=== PATIENT | male | born 1940 | race Caucasian/White ===

== ENCOUNTER 2024-12-16 16:53 | Inpatient (IN) | payer MEDICARE, BC, SELFPAY ==
[2024-12-16] VITALS (17 sets, daily range): BP systolic 84–105; BP diastolic 35–65; PULSE 84–118; RESP 15–282; TEMP 36.6–37.5; O2SAT 78–100; BMI 28.5; BMI 28.0
--- NOTE | 2024-12-16 17:34 | ED.VIS.GI ---
HPI HPI - GI History of Present Illness Chief Complaint: Nausea/Vomiting/Diarrhea Informant: patient Nausea/Vomiting/Emesis GI Symptom: Positive for Nausea and Vomiting Onset: Days Severity: Mild Diarrhea/Melena/Hematochezia GI Symptom: Positive for Diarrhea Onset: Days Stool Quality: Positive for Loose Severity: Mild Associated Symptoms Associated Symptoms: Negative for Dysuria, Frequency, Hematuria or Urgency Narrative Narrative: 81-year-old male reportedly past medical history diabetes. But the patient is a very limited informant. He was brought in by squad we think from his home. Presents complaining of nausea, vomiting and diarrhea last several days. Denies any fever or abdominal pain. Denies any dysuria. Prior similar symptoms: No Recent Illness/Hospitalization: No PFSH PFSH Home Medications ?Medication ?Instructions ?Recorded ?Last Taken ?Type finasteride 5 mg tablet 5 mg PO DAILY 12/16/24 Unknown History glipizide 5 mg tablet 5 mg PO DAILY 12/16/24 Unknown History levothyroxine 25 mcg tablet 25 mcg PO DAILY 12/16/24 Unknown History (Euthyrox) losartan 50 mg tablet (Cozaar) 50 mg PO DAILY 12/16/24 Unknown History metoprolol tartrate 50 mg tablet 50 mg PO DAILY 12/16/24 Unknown History (Lopressor) simvastatin 40 mg tablet 40 mg PO DAILY 12/16/24 Unknown History tamsulosin 0.4 mg capsule (Flomax) 0.4 mg PO DAILY 12/16/24 Unknown History warfarin 1 mg tablet (Jantoven) 1 mg PO .unknown 12/16/24 Unknown History Allergy/AdvReac Type Severity Reaction Status Date / Time No Known Allergies Allergy Verified 12/16/24 16:59 Social History Smoking Status: Never smoker ROS ROS ED ROS Narrative Nausea, vomiting and diarrhea. Constitutional Constitutional ED: Denies chills or fever(s) ENT ENT ED: Denies ear pain Cardiovascular Cardiovascular: Denies chest pain Respiratory/Chest Respiratory/Chest: Denies dyspnea Gastrointestinal Gastrointestinal: Reports diarrhea, nausea and vomiting; Denies abdominal pain, constipation or melena Genitourinary Genitourinary ED: Denies dysuria or hematuria Musculoskeletal Musculoskeletal: Denies arthralgias Integumentary Denies abscess Neurologic Neurologic: Denies headache(s) Psychiatric Psychiatric: Denies anxiety or depression Endocrine Endocrinology: Denies polydipsia Hematologic/Lymphatic Hematologic/Lymphatic: Denies easy bleeding, easy bruising or lymphadenopathy Allergic/Immunologic Allergic/Immunologic ED: Denies mouth swelling, tongue swelling or urticaria EXAM Physical Exam Narrative Exam Narrative: 81-year-old male vital signs show temperature nine 9.5. Blood pressure of 91/65. He is awake and alert he sitting upright in bed. He is a very limited informant. There is currently no family with him. H EENT exam pupils round react light. Dry mucous memories. Neck nontender no JVD. No lymphadenopathy. Back nontender. Lungs clear to auscultation bilaterally. Heart tachycardic rate about 101 no murmur. Chest wall ribs nontender. Abdomen soft nondistended normal bowel sounds without peritoneal signs. No hernia or mass. No obstruction. Soft. Moving all 4 extremities. Both lower extremities have chronic nail changes and skin changes. Trace edema. Neurologically he is awake he is alert. He knows he is in the hospital. He does not know the date. He is a very limited informant. He has no focal motor deficits. Normal speech. Const Vital Signs: 12/16/24 16:59 12/16/24 17:06 12/16/24 17:15 Temperature 99.5 F H Temperature Source Oral Pulse Rate 101 H 106 H Respiratory Rate 282 H 19 H 22 H Blood Pressure 91/65 Blood Pressure Mean 73 Pulse Ox 99 100 100 Oxygen Delivery Method Room Air 12/16/24 17:30 12/16/24 17:45 12/16/24 18:00 Temperature Temperature Source Pulse Rate 113 H 118 H 101 H Respiratory Rate 24 H 24 H 15 Blood Pressure 90/55 L 97/56 L Blood Pressure Mean 68 70 Pulse Ox 81 78 80 Oxygen Delivery Method 12/16/24 18:15 12/16/24 18:30 12/16/24 18:45 Temperature Temperature Source Pulse Rate 107 H 112 H Respiratory Rate 22 H 21 H 23 H Blood Pressure 94/48 L Blood Pressure Mean 62 Pulse Ox Oxygen Delivery Method 12/16/24 19:00 12/16/24 19:15 12/16/24 20:25 Temperature Temperature Source Pulse Rate 111 H 106 H 94 Respiratory Rate 28 H 21 H 16 Blood Pressure 84/35 L 101/52 L 87/44 L Blood Pressure Mean 46 66 58 Pulse Ox 92 94 Oxygen Delivery Method Room Air Positive well nourished and well developed; Negative for cachectic, contractures or unkempt General Appearance ED: well developed and NAD; Negative for unkempt, cachectic, contractures or pallor Nutritional Appearance: Negative for cachectic HEENT Reports dry mucous membranes; Denies moist mucous membranes normocephalic and atraumatic Mouth ED: Yes dry mucous membranes Mouth: dry mucous membranes Eyes PERRL and EOMs intact bilaterally Neck no lymphadenopathy, supple and no JVD Resp normal respiratory effort and clear to auscultation bilaterally Cardio regular rhythm, S1 normal heart sound, S2 normal heart sound and no murmurs; Negative for regular rate Rate: tachycardic GI non-tender, non-distended and no masses Inspection: Negative for abdominal distention Auscultation: normoactive bowel sounds Palpation: soft; Negative for tender, guarding, rigid, mass, pulsatile mass or rebound tenderness present Back/Spine no CVA tenderness Extremity full ROM Extremity Narrative: Chronic skin and nail changes. General Extremety ED: Yes edema; Negative for tenderness General Extremity: edema Neuro moves all extremities Sensorium / Orientation: alert, oriented to person, orientation impaired and confused; Negative for oriented to place, oriented to time, lethargic or stuporous Motor Exam: strength 5/5 throughout Psych mental status grossly normal and thought process normal Appearance: Negative for unkempt Skin No no wounds General Skin Exam: Negative for jaundice or pallor Lesions: no lesions Rashes: no rashes MDM MDM MDM Narrative Medical decision making narrative: 81-year-old male reportedly from home with nausea vomiting diarrhea. Clinically looks dehydrated and with that has acute hypotension most likely from dehydration. Screening labs to be obtained have been given Zofran and a liter normal saline. Multiple repeat exams the most recent 9:40 PM. Patient received initial liter of saline was given a second. He has 3 good peripheral lines. Pressure currently is around 90 systolic he will be given 1/3 L. Given his leukocytosis but no specific source as of yet will be started on IV Zosyn. I have the hospitalist on page for admission. Patient is awake and alert. He wants to go home I explained to him given his labs that he may be sicker than he realizes. His son and are at bedside they are comfortable with the admission. History & Record Review Discussion w/independent historian: Patient Additional record(s) reviewed:: No prior records Lab Data Attestation: I reviewed the patient's lab results. Lab results narrative: CBC shows an elevated white count 24.2. H&H 9.3 and 20.6. Platelets 233. Chemistry showed potassium of 3.2. Gap 16. BUN and creatinine at 38 and 2.48. No old labs available for comparison. Glucose 143. Liver enzymes unremarkable other than an alk phos of 231. No old labs available for comparison. PT/INR of 18.9 and 1.5. Lactic acid is elevated 2.6. UA no nitrites. Greater than 100 white cells. 2+ bacteria. Urine culture sent. Will be treated as a UTI. Labs: Laboratory Results - last 24 hr 12/16/24 12/16/24 12/16/24 17:35 18:30 19:00 WBC 24.2 H RBC 3.18 L Hgb 9.3 L Hct 28.6 L MCV 89.9 MCH 29.2 MCHC 32.5 RDW Std Deviation 49.5 H RDW Coeff of Rolando 14.9 H Plt Count 233 MPV 8.9 Immature Gran % (Auto) 1.000 H Neut % (Auto) 95.7 H Lymph % (Auto) 1.8 L Griggs % (Auto) 1.3 Eos % (Auto) 0.0 Baso % (Auto) 0.2 Absolute Neuts (auto) 23.2 H Absolute Lymphs (auto) 0.44 L Nucleated RBC % 0 Differential Comment SCANNED Platelet Estimate ADEQUATE PT Cancelled Cancelled INR Cancelled Cancelled Sodium 139 Potassium 3.2 L Chloride 101 Carbon Dioxide 22.3 Anion Gap 16 H BUN 38 H Creatinine 2.48 H Estim Creat Clear Calc 26.41 L Est GFR (MDRD) Non-Af 25 L BUN/Creatinine Ratio 15.1 Glucose 143 H Lactic Acid Calcium 7.8 Total Bilirubin 0.52 AST 32 ALT 14 Alkaline Phosphatase 231 H Total Protein 6.1 Albumin 2.5 L Globulin 3.6 Albumin/Globulin Ratio 0.7 L Urine Color Urine Clarity Urine pH Ur Specific Sibley Urine Protein Urine Glucose (UA) Urine Ketones Urine Occult Blood Urine Nitrite Urine Bilirubin Urine Urobilinogen Ur Leukocyte Esterase Urine RBC Urine WBC Ur Squamous Epith Cells Urine Bacteria Urine Mucus 12/16/24 12/16/24 12/16/24 20:00 20:18 20:30 WBC RBC Hgb Hct MCV MCH MCHC RDW Std Deviation RDW Coeff of Rolando Plt Count MPV Immature Gran % (Auto) Neut % (Auto) Lymph % (Auto) Griggs % (Auto) Eos % (Auto) Baso % (Auto) Absolute Neuts (auto) Absolute Lymphs (auto) Nucleated RBC % Differential Comment Platelet Estimate PT 18.9 H INR 1.5 Sodium Potassium Chloride Carbon Dioxide Anion Gap BUN Creatinine Estim Creat Clear Calc Est GFR (MDRD) Non-Af BUN/Creatinine Ratio Glucose Lactic Acid 2.6 H* Calcium Total Bilirubin AST ALT Alkaline Phosphatase Total Protein Albumin Globulin Albumin/Globulin Ratio Urine Color Yellow Urine Clarity Cloudy Urine pH 6.5 Ur Specific Sibley 1.010 Urine Protein 30 H Urine Glucose (UA) Normal Urine Ketones Negative Urine Occult Blood 25 H Urine Nitrite Negative Urine Bilirubin Negative Urine Urobilinogen Normal Ur Leukocyte Esterase 500 H Urine RBC 0 SEEN Urine WBC >100 SEEN Ur Squamous Epith Cells 0-5 SEEN Urine Bacteria 2+ Urine Mucus 0 SEEN Radiography Chest X-Ray - ED: 1 View, Lungs, Mediastinum, Bony Structures, No Acute Disease, Chronic Changes and Cardiomegaly Diagnostic Testing: Clinical Impression(s) from Imaging Studies Chest X-Ray 12/16/24 17:55 IMPRESSION: Mild cardiomegaly and mild pulmonary vascular congestion. Reading Location: [facility] Chest x-ray, portable, single view shows cardiomegaly. Otherwise chronic changes no acute process. No pneumonia. No large effusion. Rhythm Strip Rhythm Strip: A-fib Rate: 95 Ectopy: None EKG Initial EKG: Attestation: I personally reviewed and interpreted this EKG as follows: Interpretation: No Acute Injury Pattern and Atrial Fibrillation Comments: Atrial fibrillation rate of 95 no acute signs of [place] or ischemia. No old EKG available for comparison. Prior EKG tracings: not available for review Critical Care Time Critical Care Time: Yes Critical care time (excluding procedures): 30-74 minutes, Including time spent:, Discussing w/Patient &/or Family/Equal Employment Opportunity Officer, Discussing w/Consultants, Arranging Admission or Transfer, Performing Direct Patient Care at Bedside and - (41 minutes) Discharge Plan Dx/Rx/DC Orders Clinical Impression: Nausea vomiting and diarrhea, Leukocytosis, Acute hypotension, Acute dehydration, Chronic kidney disease, History of diabetes mellitus, Chronic anticoagulation, History of atrial fibrillation, Acute UTI, Sepsis Disposition Disposition: Acute Care Hospital [facility]
[2024-12-16] MEDS: 0.9% Normal Saline (1000mL) 1,000 ML 999 ML IV ×3 (17:39→21:49)
[2024-12-16 17:42] LABS: Hematocrit 28.6 % (40-54); Hemoglobin 9.3 g/dL (13.0-16.5); Immature Granulocytes Count 0.250 X10^3/uL (0.0-0.0); Mean Corp Hgb Conc 32.5 g/dL (32-36); Mean Corpuscular Volume 89.9 fL (80-94); Mean Platelet Vol. 8.9 fl (6.2-12.0); NRBC Flagged by Analyzer 0 % (0-5); POSITIVE DIFFERENTIAL YES; Platelet Count 233 K/mm3 (150-450); RBC Distribution Width CV 14.9 % (11.6-14.6); RBC Distribution Width SD 49.5 fl (35.1-43.9); Red Blood Count 3.18 M/mm3 (4.6-6.2); White Blood Count 24.2 K/mm3 (4.4-11.0)
--- NOTE | 2024-12-16 17:46 | ED.RN ---
[facility] states that son Lorenzo Espitia is getting his mom/pt's ready and they will be in. the has dementia per twp. pt and live with son per twp. son's phone number [phone].
--- NOTE | 2024-12-16 17:55 | RAD_ITS ---
PROCEDURE: CHEST 1 VIEW (PORTABLE) 12/16/2024 REASON FOR EXAM: WEAKNESS TECHNIQUE: Frontal view of the chest. COMPARISON: None available. FINDINGS: Hardware: None. Heart: Heart size is mildly enlarged. Lungs: Mild pulmonary vascular congestion. No definite pneumothorax or sizable pleural effusion. Bones: The bones are unremarkable. RAD/Chest 1 View (Portable) IMPRESSION: Mild cardiomegaly and mild pulmonary vascular congestion. Reading Location: [facility]
[2024-12-16 18:17] LABS: AST(SGOT) 32 U/L (<=37); Alanine Aminotransfer ALT/SGPT 14 U/L (<=46); Albumin, Serum 2.5 g/dL (3.4-4.8); Alkaline Phosphatase 231 U/L (40-129); Anion Gap 16 (5-15); BUN 38 mg/dL (4-19); BUN/Creat Ratio 15.1 RATIO (10-20); Calcium,Total 7.8 mg/dL (7.6-11.0); Carbon Dioxide 22.3 mmol/L (21.0-32.0); Chloride 101 mmol/L (98-108); Estimated Creatinine Clearance 26.41 ml/min (50-250); Globulin 3.6 g/dL (2.2-4.2); Glucose 143 mg/dL (70-99); Potassium 3.2 mmol/L (3.3-5.1)
--- NOTE | 2024-12-16 19:29 | ED.RN ---
Laura from lab called and states blue top quant not sufficient. States will send a broommaking supervisor.
--- NOTE | 2024-12-16 20:05 | EKG12_ITS ---
Test Reason : DYSRHYTHMIA Blood Pressure : */* mmHG Vent. Rate : 95 BPM Atrial Rate : * BPM P-R Int : * ms QRS Dur : 88 ms QT Int : 374 ms P-R-T Axes : * -17 -34 degrees QTcB Int : 469 ms Atrial fibrillation Low voltage QRS Abnormal ECG Confirmed by ANA DE SOUZA, SEA ([id number]), medical transcription editor MERRILL WERNER ([id number]) on 12/18/2024 8:33:47 AM Referred By: Confirmed By: SEA PEREZ MD
--- NOTE | 2024-12-16 20:09 | PCA ---
NO OLD EKG
[2024-12-16 20:13] LABS: Differential Indicated SCAN CRITERIA MET
[2024-12-16 20:37] LABS: Prothrombin Time (Protime)PT. 18.9 SECONDS (11.7-14.9)
[2024-12-16 20:38] LABS: Mucous, Urine 0 SEEN /hpf (<or=2+); Red Blood Cells-Urine 0 SEEN /hpf (0-5)
[2024-12-16 20:50] LABS: Color, Urine Yellow (Yellow); Glucose, Dipstick Normal (Normal); Ketone-Dipstick Negative (Negative); Leukocyte Esterase-Dipstick 500 /ul (Negative); Nitrite-Dipstick Negative (Negative); Occult Blood-Urine 25 /ul (Negative); Protein-Dipstick 30 mg/dl (Negative); Specific Gravity, Urine 1.010 (1.002-1.030); Urine Bilirubin Dipstick Negative (Negative)
[2024-12-16 21:05] LABS: Differential Comment SCANNED
[2024-12-16 21:37] LABS: Squamous Epithelial Cells - UA 0-5 SEEN /hpf (0-5)
--- NOTE | 2024-12-16 21:49 | PCM.HP.STD ---
HPI - General General Date of Admission: 12/16/24 Date of Service: 12/16/24 Chief Complaint: Intractable N/V/D. 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 Workup in the ED included T99.5, heart 101, BP 91/65, respiratory rate 24, 99% on room air with BP transiently dropping to 84/35, most recent repeat vitals heart rate 94, BP 87/44 with MAP of 58, respiratory rate 16, 94% on room air,, CBC with WC 24.2, hemoglobin 9.3, MCV 89.9, platelets 233 with left shift and lymphopenia, CMP with potassium 3.2, anion gap 16, BUN/creatinine 38/2.48, GFR 25, glucose 143, alk phos 231, chest x-ray with mild cardiomegaly and mild pulmonary vascular congestion, INR 1.5,, EKG with atrial fibrillation rate controlled with no acute evidence of ischemia, lactic acid 2.6, urinalysis noted to be cloudy, protein 30, occult blood 25, leukocyte esterase 500 with urine WBCs greater than 100 with 2+ urine bacteria, urine culture pending per ED, blood culture x 2 pending per ED. In the ED patient ministered 2 L normal saline and now being administered an additional 1 L normal saline, Zosyn 4.5 g IV x 1 as well as Zofran 4 mg IV x 1. [facility] Medical History Former tobacco use BPH (benign prostatic hyperplasia) Diabetes mellitus, type 2 Hypothyroidism HLD (hyperlipidemia) HTN (hypertension) PAF (paroxysmal atrial fibrillation) CAD (coronary artery disease) Chronic anemia Chronic kidney disease Home Medications ?Medication ?Instructions ?Recorded ?Last Taken ?Type finasteride 5 mg tablet 5 mg PO DAILY 12/16/24 Unknown History glipizide 5 mg tablet 5 mg PO DAILY 12/16/24 Unknown History levothyroxine 25 mcg tablet 25 mcg PO DAILY 12/16/24 Unknown History (Euthyrox) losartan 50 mg tablet (Cozaar) 50 mg PO DAILY 12/16/24 Unknown History metoprolol tartrate 50 mg tablet 50 mg PO DAILY 12/16/24 Unknown History (Lopressor) simvastatin 40 mg tablet 40 mg PO DAILY 12/16/24 Unknown History tamsulosin 0.4 mg capsule (Flomax) 0.4 mg PO DAILY 12/16/24 Unknown History warfarin 1 mg tablet (Jantoven) 1 mg PO .unknown 12/16/24 Unknown History Allergy/AdvReac Type Severity Reaction Status Date / Time No Known Allergies Allergy Verified 12/16/24 16:59 Family History (Updated 12/16/24 @ 22:[address] Zofia [place] MD) Mother COPD (chronic obstructive pulmonary disease) Lung cancer Father COPD (chronic obstructive pulmonary disease) Liver cancer Surgical History (Updated 12/16/24 @ 22:[address] Zofia [place] MD) History of foot surgery S/P CABG (coronary artery bypass graft) Social History (Updated 12/16/24 @ 22:[address] Zofia [place] MD) household members: spouse and family Smoking Status: Former smoker alcohol intake: never substance use type: does not use ROS ROS Narrative Admission Review of Systems: CONSTITUTIONAL: No weight loss, fever, chills, + weakness or fatigue. HEENT: Eyes: No visual loss, blurred vision, double vision or yellow sclerae. Ears, Nose, Throat: No hearing loss, sneezing, congestion, runny nose or sore throat. SKIN: No rash or itching, lesions except + healing left fifth toe amputation site wound, noninfected appearing, no drainage in addition to occasional stage ecchymoses, abrasion. CARDIOVASCULAR: No chest pain, chest pressure or chest discomfort, palpitations, edema, orthopnea, syncopal events. RESPIRATORY: No shortness of breath, cough or sputum, wheezing, hemoptysis. GASTROINTESTINAL: + anorexia, nausea, vomiting, diarrhea. No abdominal pain, melena, BRBPR. GENITOURINARY: + BPH with obstructive pathology with chronic urinary frequency. No dysuria, urgency or retention. NEUROLOGICAL: No headache, dizziness, syncope, paralysis, ataxia, numbness or tingling in the extremities, focal weakness, change in bowel or bladder control, seizure. MUSCULOSKELETAL: + muscle, back pain, joint pain or stiffness. HEMATOLOGIC: + Chronic anemia, easy bleeding/bruising. LYMPHATICS: No enlarged nodes. No history of splenectomy. PSYCHIATRIC: No history of depression or anxiety. ENDOCRINOLOGIC: No reports of sweating, cold or heat intolerance. No polyuria or polydipsia. ALLERGIES: No history of asthma, hives, eczema or rhinitis. Vital Signs Vital Signs Vital Signs: 12/16/24 16:59 12/16/24 17:06 12/16/24 17:15 Temperature 99.5 F H Temperature Source Oral Pulse Rate 101 H 106 H Respiratory Rate 282 H 19 H 22 H Blood Pressure 91/65 Blood Pressure Mean 73 Pulse Ox 99 100 100 Oxygen Delivery Method Room Air 12/16/24 17:30 12/16/24 17:45 12/16/24 18:00 Temperature Temperature Source Pulse Rate 113 H 118 H 101 H Respiratory Rate 24 H 24 H 15 Blood Pressure 90/55 L 97/56 L Blood Pressure Mean 68 70 Pulse Ox 81 78 80 Oxygen Delivery Method 12/16/24 18:15 12/16/24 18:30 12/16/24 18:45 Temperature Temperature Source Pulse Rate 107 H 112 H Respiratory Rate 22 H 21 H 23 H Blood Pressure 94/48 L Blood Pressure Mean 62 Pulse Ox Oxygen Delivery Method 12/16/24 19:00 12/16/24 19:15 12/16/24 20:25 Temperature Temperature Source Pulse Rate 111 H 106 H 94 Respiratory Rate 28 H 21 H 16 Blood Pressure 84/35 L 101/52 L 87/44 L Blood Pressure Mean 46 66 58 Pulse Ox 92 94 Oxygen Delivery Method Room Air Weight Weight: 199 lb 1.239 oz Body Mass Index (BMI) 28.5 Physical Exam Narrative Physical Examination: General: Awake, alert, oriented to self, place, recent events, improved since initial ED arrival per discussion with ED staff, cooperative, fatigued appearing, no acute distress. Skin: Normal color, normal turgor, no icterus, no cyanosis Except occasional stage ecchymoses, abrasion, bilateral lower extremity venous stasis skin changes, left fifth toe amputation site with small wound but not infected appearing, no drainage and no erythema. HEENT: AT/NC, EOMI, PERRLA, MMM, no carotid bruits or JVD noted. Lungs: Mildly diminished, greater bases, appropriate effort, no rales, ronchi or wheezing. Heart: Irregular, rate controlled; no gallop, rub audible. Abdomen: Soft, NTTP, ND, mildly hyperactive BS, no appreciated HSM. Extremities: No cyanosis, no clubbing, no significant distal pitting edema noted, see skin. Neurological: Patient awake, alert, oriented as noted, cognitive function improving since initial ED arrival, suspect near baseline intact; pupils equally reactive to light and accommodation, cranial nerves grossly normal, moving all 4 extremities, no focal deficits, strength severely globally decreased secondary to acute presentation. Psychiatric: Affect appears flat, fatigued, ill-appearing, no acute evidence of depressive or anxiety feelings. Results Lab / Micro Data 12/16/24 17:35 12/16/24 17:35 Labs: Laboratory Results - last 24 hr 12/16/24 17:35: WBC 24.2 H, RBC 3.18 L, Hgb 9.3 L, Hct 28.6 L, MCV 89.9, MCH 29.2, MCHC 32.5, RDW Std Deviation 49.5 H, RDW Coeff of Rolando 14.9 H, Plt Count 233, MPV 8.9, Immature Gran % (Auto) 1.000 H, Neut % (Auto) 95.7 H, Lymph % (Auto) 1.8 L, [place] % (Auto) 1.3, Eos % (Auto) 0.0, Baso % (Auto) 0.2, Absolute Neuts (auto) 23.2 H, Absolute Lymphs (auto) 0.44 L, Nucleated RBC % 0, Differential Comment SCANNED, Platelet Estimate ADEQUATE, Sodium 139, Potassium 3.2 L, Chloride 101, Carbon Dioxide 22.3, Anion Gap 16 H, BUN 38 H, Creatinine 2.48 H, Estim Creat Clear Calc 26.41 L, Est GFR (MDRD) Non-Af 25 L, BUN/Creatinine Ratio 15.1, Glucose 143 H, Calcium 7.8, Total Bilirubin 0.52, AST 32, ALT 14, Alkaline Phosphatase 231 H, Total Protein 6.1, Albumin 2.5 L, Globulin 3.6, Albumin/Globulin Ratio 0.7 L 12/16/24 18:30: PT Cancelled, INR Cancelled 12/16/24 19:00: PT Cancelled, INR Cancelled 12/16/24 20:00: PT 18.9 H, INR 1.5 12/16/24 20:18: Lactic Acid 2.6 H* 12/16/24 20:30: Urine Color Yellow, Urine Clarity Cloudy, Urine pH 6.5, Ur Specific [place] 1.010, Urine Protein 30 H, Urine Glucose (UA) Normal, Urine Ketones Negative, Urine Occult Blood 25 H, Urine Nitrite Negative, Urine Bilirubin Negative, Urine Urobilinogen Normal, Ur Leukocyte Esterase 500 H, Urine RBC 0 SEEN, Urine WBC >100 SEEN, Ur Squamous Epith Cells 0-5 SEEN, Urine Bacteria 2+, Urine Mucus 0 SEEN Rhythm Strip Rhythm Strip: A-fib Rate: 95 Ectopy: None Imaging Radiology Impression Chest X-Ray 12/16/24 17:55 IMPRESSION: Mild cardiomegaly and mild pulmonary vascular congestion. 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 #1. Acute Sepsis (tachycardic, tachypneic, notable leukocytosis with shift, source, lactic acidosis, hypotension with MAP less than 65) secondary to Acute Encephalopathy secondary to Acute Complicated Urinary Tract Infection with history of previous chronic indwelling Casas catheter needs in the past with associated #2 nausea/emesis/diarrhea with lactic acidosis likely related to volume depletion with associated hypotension likely secondary to a side #1 also #2: Will admit to ICU given hypotension associated, status post 2L in the ED and now being administered an additional third liters per ED physician, UA upon ED evaluation remarkable, pending UCx, continue judicious IVFs (30 cc/kg 2,700 mL) and if SBP not appropriately maintaining following completion then may consider low-dose norepinephrine only as patient does not want a central line nor high dose pressor usage, monitor I/Os, continue IV Zosyn w/ transition as able pending sensitivities and speciation. Will initiate new car make ready mechanic evaluation per protocol. Bld cx x 2 obtained in the ED. PT/OT/case management consulted for discharge planning. Patient did see Dr. Borges outpatient secondary to indwelling Casas catheter as he had it placed [facility] the [facility] facility following his hospitalization following his toe amputation in [place] however it was eventually discontinued. #2. Intractable N/V/D, suspect likely secondary to #1 however certainly possibility of gastroenteritis: Will continue on judicious hydration, will obtain c diff, stool cx, O+P, will maintain on IV PPI, allow clears until clinically improving, will have as needed anti-emetics/pain regimen, PT/OT/case management consulted for discharge planning. #3. Hypokalemia: Admission K+ 3.2, magnesium level requested, supplementation given, repeat level in AM. #4. Suspected chronic normocytic anemia: Admission hemoglobin 9.3, MCV 89.9, no comparison labs this patient is from out of town, will trend CBC and if remains stable then would obviously suspect this is patient's baseline however falters will need to investigate further. Will request records from previous healthcare system. #5. CKD stage IV versus acute renal insufficiency versus JULIANA, uncertain as no comparison labs from previously: Admission BUN/creatinine 38/2.48, GFR 25, unfortunately no comparison labs including in [facility] system [place] recently transitioning, will judiciously hydrate, hold nephrotoxic medications and repeat level in AM to further elucidate patient baseline chronicity. Will request records from previous healthcare system. #6. PAF: Will temporally hold metoprolol given lower BP upon presentation, ongoing IV fluids with resumption once clinically appropriate, continue Coumadin with INR trending with adjustment as needed. #7. Hypertension: BP upon presentation lower normal range, dropped in the ED, holding all HTN regimen with resumption once improved. PRN hydralazine. #8. Hyperlipidemia: Will continue patient on statin therapy. #9. CAD: Status post CABG per report, will continue Coumadin with INR trending, statin therapy, holding metoprolol and losartan given possible JULIANA and hypotension as noted, resume once clinically appropriate. #10. Hypothyroidism: Continue patient home levothyroxine regimen. #11. Diabetes mellitus type II with chronic diabetic foot wound history: Hold oral home regimen, given recent intractable nausea and emesis in addition to diarrhea will temporally placed on clears until sure tolerating, in the interim maintain on every 6 hours accu checks w/ ISS. #12. BPH with obstructive pathology: Will continue patient home finasteride and Flomax regimen, monitor for retention, encourage continued follow-up outpatient with urology as previously arranged. #13. Former tobacco use: Encourage continued tobacco cessation. #14. Recent history of left fifth toe osteomyelitis, unclear organism: Patient status post resection left fifth toe in [place] October 21, following with sample maker Dr. Bosch in [place] with most recent visit the prior with planned weekly visit, we will continue dry dressings with wound RN consultation in the interim. Patient completed antibiotic therapy and is not on any regimen at this time. #15. DVT prophylaxis: Will continue Coumadin with additional dose given subtherapeutic INR 1.5, continue to trend INR. #16. CODE status: Patient DENIA is his son who is present and living will is currently in place. Discussed CODE status at length including difference between FULL code, DNR-CCA and DNR-CC status. Following discussions about the differences in these status, requested DNR-CCA, no intubation. Examples reviewed and discussed with confirmation of his status. Also discussed central line placement and pressor therapies and he declines central line and high dose pressor usage at this time. Advanced Care Planning Face to Face Time: 16 minutes. Charges/Coding Visit Charges Inpatient E&M: 61326 Init Hosp L3 Procedures Hospitalists Procedures: 38957 Advncd Care Plan 30 Min
[2024-12-16] MEDS: Piperacil/Tazobactam 4.5 GM in 0.9% Normal Saline (100mL MB+) 100 ML IV (22:01)
--- OUTSIDE RECORDS SUMMARY | 2024-12-16 22:34 | XMS RPT_ITS | CCD ---
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 Mcdonald Emergency Provider [phone] Kendra DE SOUZA, Dr. Ramirez Primary Care Provider [phone] Harry Balderas Attending Unavailable James Gardner Primary Care Unavailable Medications Current Medications Medication Drug Class(es) Dates Sig (Normalized) Sig (Original) nystatin 100 unt/mg topical powder (1 source) Polyene Antifungal Start: 11-28-2024 Nystatin 100,000 unit/gram powder Active 1 NMA TOPICAL THREE TIMES A DAY 60 0 November 28, 2024 12:00am Problems Problem Classification Problem Date Documented Date Episodic/Chronic Complication of device; implant or graft (1 source) Hemorrhage due to genitourinary prosthetic devices, implants and grafts, initial encounter; Translations: [Hemorrhage due to genitourinary prosthetic devices, implants and grafts, initial encounter] Onset: 12-04-2024 Episodic Mycoses (1 source) Candidiasis of skin; Translations: [Candidiasis of skin and nail] 11-28-2024 Episodic Other aftercare (1 source) Anticoagulant control - finding; Translations: [Encounter for therapeutic drug level monitoring] 11-28-2024 Episodic Other injuries and conditions due to external causes (1 source) Injury of penis; Translations: [Unspecified injury of external genitals, initial encounter] 11-28-2024 Episodic Results Test Name Value Interpretation Reference Range Facility Emergency Department Summary on 11-28-2024 Emergency Department Summary [facility] Medical Records Department [address] [place] [address] Emergency Department Summary 11/28/24 MR#: [id number] Acct: [id number] Name: ESTEFANY DE LA GARZA Rep #: [id number] : 1940 84 From: Harry Balderas MD PCP: Status:REG ER Location: ED HPI History of Present Illness Chief Complaint: Thurman C/O Detail of Chief Complaint: Multiple issues and moving from [place] Informant: patient and family Onset/Context/Timing Onset: - (Detailed in the HPI narrative) Context: Sudden Onset Timing: Intermittent Quality: HPI narrative Location: Multiple Current Severity: Not applicable Maximum Severity: Not applicable Worsened by: 1 issue is the patient stepped out of full Relieved by: Not applicable Associated Symptoms Associated Symptoms: Blood from penis Narrative Narrative: Patient is an 84-year-old gentleman. He is relocating from [facility]. 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 He presents because of trauma to penis. He apparently stepped on his Thurman. He was noted to have blood. Son was concerned. He is on Coumadin for atrial fibs. He is on 1 mg daily except Wednesday. He did not take a dose today. He has no established doctor in the area. He has no established composition floor setter in the area. He has no established urologist in the area. He is not a good informant. He denies fever, chills night sweats. Denies cardiac or respiratory symptoms. Prior similar symptoms: Yes Recent Illness/Hospitalizatio n: Yes PFSH PFSH Medical History Urinary incontinence Atrial fibrillation Frequent falls Hx of cataract Diabetes type 2 Home Medications ???Medication ???Instructions ???Recorded ???Last Taken ???Type nystatin 100,000 unit/gram topical 1 applic topical TID #60 grams 0 11/28/24 Unknown Rx powder Allergy/AdvReac Type Severity Reaction Status Date / Time No Known Allergies Allergy Verified 11/28/24 19:16 Family History no significant family his Surgical History Hx of heart bypass surgery Social History (Updated 11/28/24 @ 20:[address] Harry Balderas MD) household members: family Smoking Status: Former smoker ROS ROS ED Constitutional Constitutional ED: Denies chills, fever(s), subjective or sweats Eyes Eyes: Denies blurry vision or change in vision Cardiovascular Cardiovascular: Denies chest pain or palpitations Respiratory/Chest Respiratory/Chest: Denies cough, dyspnea or dyspnea on exertion Gastrointestinal Gastrointestinal: Denies diarrhea or vomiting Genitourinary Genitourinary ED: Reports other Details: Blood from penis due to Thurman trauma Hematologic/Lymphatic Hematologic/Lymphatic: Reports systems reviewed and no addt'l complaints, except as documented EXAM Physical Exam Const Vital Signs: 11/28/24 19:15 Temperature 98.7 F Temperature Source Oral Pulse Rate 91 Respiratory Rate 16 Blood Pressure 127/77 H Blood Pressure Mean 93 Pulse Ox 98 Oxygen Delivery Method Room Air Positive well nourished and well developed Constitutional Narrative: Patient appears in no distress. General Appearance ED: well developed; Negative for cyanotic, diaphoretic or pallor HEENT Reports moist mucous membranes HEENT Narrative: Head is atraumatic and normocephalic. Eyes PERRL and EOMs intact bilaterally General Eye ED: Negative for pale conjunctiva or scleral icterus Neck no lymphadenopathy, supple and no JVD Resp normal respiratory effort Cardio regular rate and regular rhythm GI normal to inspection, nondistended, normoactive bowel sounds, non-tender, non-distended and no masses; Negative for hepatosplenomegaly Narrative: Patient is circumcised. Patient has necrosis ventral side of the glans. There is no evidence infection at this time. Testes descended bilaterally. He has evidence of Noemi infection involving the penis, scrotum lower portion of the abdomen and both inguinal regions. Will treat this with nystatin powder. Extremity Extremity Narrative: Patient has evidence of peripheral arterial disease. Neuro oriented x3 and CN's II-XII intact bilaterally Sensorium / Orientation: alert Psych Psych Narrative: Affect is flat. Skin General Skin Exam: Negative for jaundice or pallor MDM MDM MDM Narrative Medical decision making narrative: Since patient is have a physician in the area and is scheduled for PT/INR this was ordered in the emergency department. Nursing staff changed his Thurman. They also treated his fungal infection with nystatin powder since it is moist. Will for patient to surgery center administrator in the area, urologist and podiatry. He was referred to Dr. Marucs for PCP, Dr. Ellis Yanez for podiatry and Dr. Liao (more content not included)... Normal [facility] normalized rat io (INR) calculationOrdered By: Harry Balderas on 11-28-2024 INR Coag (Bld) [Relative time] 1.9 {INR} [facility] Prothrombin Time w/INRon INR Coag (PPP) [Relative time] 1.9 {INR} Normal [facility] Comment on above: Performed By: #### L 300.3900 #### [facility] [address] [place], [place], [address] PT Coag (PPP) [Time] 22.0 s High 11.7-14.9 [facility] Comment on above: Performed By: #### L 300.3900 #### [facility] [address] [place], [place], [address] Prothrombin timeOrdered By: Harry Balderas on 11-28-2024 PT Coag (PPP) [Time] 22.0 s High 11.7-14.9 [facility] Vital Signs Date Time Vital Sign Value Performing Clinician Faci lity 11-28-2024 20:36-0400 Body temperature 97.9 [degF] Dr. Harry Balderas MD Work Phone: [phone] [place] [address] 11-28-2024 20:36-0400 Diastolic blood pressure 49 mm[Hg] Dr. Harry Balderas MD Work Phone: [phone] [place] [address] 11-28-2024 20:36-0400 Heart rate 77 /min Dr. Harry Balderas MD Work Phone: [phone] [place] [address] 11-28-2024 20:36-0400 Respiratory rate 18 /min Dr. Harry Balderas MD Work Phone: [phone])[phone] [place] [address] 11-28-2024 20:36-0400 SaO2% (BldA) [Mass fraction] 97 % Dr. Harry Balderas MD Work Phone: [phone])[phone] [place] [address] 11-28-2024 20:36-0400 Systolic blood pressure 132 mm[Hg] Dr. Harry Balderas MD Work Phone: [phone])[phone] [place] [address] 11-28-2024 19:47-0400 Body mass index (BMI) [Ratio] 29.4 kg/m2 Dr. Harry Balderas MD Work Phone: [facility] 11-28-2024 19:47-0400 Body weight [address] Harry Balderas MD Work Phone: [facility] 11-28-2024 19:15-0400 Body height 177.[address] Harry Balderas MD Work Phone: [facility] Encounters Encounter Date Encounter Type Care Provider Facility Start: 11-28-2024 End: 11-28-2024 Emergency department patient visit Dr. Harry Balderas MD Work Phone: -Emergency Department Work Phone: Plan of Treatment Date Care Activity Detail Author Start: 11-28-2024 [facility] Patient Education ED Vasquez Anderson ED Fungal Skin Infection (Tinea) [facility] Work Phone: Payers Date Payer Category Payer Medicare [id number] 2024 Self-pay 2024 Unknown [id number] A Unknown [id number] Social History Date Type Detail Facility Start: 11-28-2024 [facility] Start: 1940 Sex Assigned At Male [facility] Discharge summary 11-28-2024 Note Date & Type Note Facility 11-28-2024 Discharge summary [facility] Discharge summary 11-28-2024 Note Date & Type Note Facility 11-28-2024 Discharge summary Note Date/Time November 28, 2024 8:26pm [facility] Medical Records Department [address] [place] [address] Emergency Department Summary 11/28/24 MR#: [id number] Acct: [id number] Name: ESTEFANY DE LA GARZA JrNohelia Rep #:[id number] : 1940 84 From: Harry Balderas MD PCP: Status:REG ER Location: ED HPI History of Present Illness Chief Complaint: Thurman C/O Detail of Chief Complaint: Multiple issues and moving from [place] Informant: patient and family Onset/Context/Timing Onset: - (Detailed in the HPI narrative) Context: Sudden Onset Timing: Intermittent Quality: HPI narrative Location: Multiple Current Severity: Not applicable Maximum Severity: Not applicable Worsened by: 1 issue is the patient stepped out of full Relieved by: Not applicable Associated Symptoms Associated Symptoms: Blood from penis Narrative Narrative: Patient is an 84-year-old gentleman. He is relocating from [facility]. 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 He presents because of trauma to penis. He apparently stepped on his Thurman. He was noted to have blood. Son was concerned. He is on Coumadin for atrial fibs. He is on 1 mg daily except Wednesday. He did not take a dose today. He has no established doctor in the area. He has no established composition floor setter in the area. He has no established urologist in the area. He is not a good informant. He denies fever, chills night sweats. Denies cardiac or respiratory symptoms. Prior similar symptoms: Yes Recent Illness/Hospitalization: Yes PFSH PFS Medical History Urinary incontinence Atrial fibrillation Frequent falls Hx of cataract Diabetes type 2 Home Medications ?Medication ?Instructions ?Recorded ?Last Taken ?Type nystatin 100,000 unit/gram topical 1 applic topical TI D #60 grams 11/28/24 Unknown Rx powder Allergy/AdvReac Type Severity Reaction Status Date / Time No Known Allergies Allergy Verified 11/28/24 19:16 Family History no significant family his Surgical History Hx of heart bypass surgery Social History (Updated 11/28/24 @ 20:[address] Harry Balderas MD) household members: family Smoking Status: Former smoker ROS ROS ED Constitutional Constitutional ED: Denies chills, fever(s), subjective or sweats Eyes Eyes: Denies blurry vision or change in vision Cardiovascular Cardiovascular: Denies chest pain or palpitations Respiratory/Chest Respiratory/Chest: Denies cough, dyspnea or dyspnea on exertion Gastrointestinal Gastrointestinal: Denies diarrhea or vomiting Genitourinary Genitourinary ED: Reports other Details: Blood from penis due to Thurman trauma Hematologic/Lymphatic Hematologic/Lymphatic: Reports systems reviewed and no addt'l complaints, exceptas documented EXAM Physical Exam Const Vital Signs: 11/28/24 19:15 Temperature 98.7 F Temperature Source Oral Pulse Rate 91 Respiratory Rate 16 Blood Pressure 127/77 H Blood Pressure Mean 93 Pulse Ox 98 Oxygen Delivery Method Room Air Positive well nourished and well developed Constitutional Narrative: Patient appears in no distress. General Appearance ED: well developed; Negative for cyanotic, diaphoretic or pallor HEENT Reports moist mucous membranes HEENT Narrative: Head is atraumatic and normocephalic. Eyes PERRL and EOMs intact bilaterally General Eye ED: Negative for pale conjunctiva or scleral icterus Neck no lymphadenopathy, supple and no JVD Resp normal respiratory effort Cardio regular rate and regular rhythm GI normal to inspection, nondistended, normoactive bowel sounds, non-tender, non-distended and no masses; Negative for hepatosplenomegaly Narrative: Patient is circumcised. Patient has necrosis ventral side of the glans. There is no evidence infection at this time. Testes descended bilaterally. He has evidence of Noemi infection involving the penis, scrotum lower portion of the abdomen and both inguinal regions. Will treat this with nystatin powder. Extremity Extremity Narrative: Patient has evidence of peripheral arterial disease. Neuro oriented x3 and CN's II-XII intact bilaterally Sensorium / Orientation: alert Psych Psych Narrative: Affect is flat. Skin General Skin Exam: Negative for jaundice or pallor MDM MDM MDM Narrative Medical decision making narrative: Since patient is have a physician in the area and is scheduled for PT/INR this was ordered in the emergency department. Nursing staff changed his Thurman. Liv treated his fungal infection with nystatin powder since it is moist. Will for patient to surgery center administrator in the area, urologist and podiatry. He was referred to Dr. Marcus for PCP, Dr. Ellis Yanez for podiatry and Dr. Egan for urology Lab Data Lab results narrative: Patient's INR subtherapeutic. He was instructed to increase to 1 mg daily. Labs: Laboratory Results - last 24 hr 11/28/24 19:30 PT 22.0 H INR 1.9 Discharge Plan Triage Chief Complaint: Thurman C/O ED Provider: Harry Balderas Dx/Rx/DC Orders Clinical Impression: Penile trauma, Candidiasis, cutaneous, Subtherapeutic anticoagulation Instructions: ED Thurman Catheter, Care, ED Fungal Skin Infection (Tinea) Prescriptions: New nystatin 100,000 unit/gram powder 1 applic topical TID Qty: 60 0RF Referrals: Jerome Chase MD [Med Staff - Intake Coordinator] - 1 Week Vivek Egan MD [Med Staff - Active Staff] - 1-2 Weeks Ellis Yanez DPM [Med Staff - Active Staff] - 1 Week Activity Restrictions/Additional Instructions: Take 1 mg tablet of Coumadin daily. You will need your level checked in a week. Print Language: Venezuelan Disposition Disposition: Home, Self Care What to do if you have Problems For any increased pain, shortness of breath, bleeding, nausea or vomiting, chestpain, or any unexpected problems, contact your Primary Care Provider. Call [facility] ([phone]) or report to the closest Emergency Room. Call 911 if necessary. 11/28/242025 <Electronically signed by Harry Balderas MD> Cosigner Signature (if applicable): CC: ~ Signed [facility] Work Phone: Evaluation note Note Date & Type Note Facility Evaluation note No assessment information availa ble [facility] Work Phone: Hospital Discharge instructions Note Date & Type Note Facility Hospital Discharge instructions Additional Instructions Take 1 mg tablet of Coumadin daily. You will need your level checked in a week. [facility] Work Phone: Reason for referral (narrative) Note Date & Type Note Facility Reason for referral (narrative) No reason for referral information available [facility] Work Phone: Chief Complaint and Reason for Visit Chief Complaint Admit Date THURMAN November 28, 2024 7:14pm Advance Directives No Advanced Directives Records Found Advance Directive Response Recorded Date/ Time Do you have a Healthcare Power of Tripper? Yes November 28, 2024 7:52pm Summary Purpose Family History No Family History Records Found Additional Source Comments Care Teams (unrecognized sec tion and content) Team Status: Active Member Role/Relationship Status Dates Dr. James Gardner MD Primary Care Provider Active Team Status: Inactive Member Role/Relationship Status Dates Dr. Harry Balderas MD Emergency Provider Active Sta rt: November 28, 2024 End: November 28, 2024 Dr. James Gardner MD Primary Care Provider Active Start: November 28, 2024 End: November 28, 2024 Goals (unrecognized section and content) Goals may be documented in a n alternate section (unrecognized sect ion and content) No Status Records Found INFORMATION SOURCE (unrecogn ized section and content) DATE CREATED AUTHOR 12/05/2024 [facility] FOR RECORDS PERTAINING TO PATIENTS WHO ARE OR HAVE BEEN ENROLLED IN A CHEMICAL DEPENDENCY/SUBSTANCEABUSE PROGRAM, SOME INFORMATION MAY BE OMITTED. This clinical summary was aggregated from multiple sources. Caution should be exercised in using it in the provision of clinical care. This summary normalizes information from multiple sources, and as a consequence, information in this document may materially change the coding, format and clinical context of patient data. In addition, data may be omitted in some cases. CLINICAL DECISIONS SHOULD BE BASED ON THE PRIMARY CLINICAL RECORDS. [facility] [employer] [facility]. provides no warranty or guarantee of the accuracy or completeness of information in this document.
[2024-12-16 22:53] LABS: Magnesium 1.3 mg/dL (1.5-2.2)
[2024-12-17] VITALS (23 sets, daily range): BP systolic 87–112; BP diastolic 41–72; PULSE 73–88; RESP 14–24; TEMP 36.1–37; O2SAT 90–99; BMI 27.9
[2024-12-17] MEDS: 0.9% Normal Saline (1000mL) 1,000 ML 100 ML IV (00:03)
[2024-12-17] MEDS: Pantoprazole Sodium 40 MG in 0.9% Normal Saline (100mL MB+) 100 ML 330 MG IV ×3 (00:04→21:04)
[2024-12-17] MEDS: Warfarin (PBKC) 2 MG Tablet PO (00:10)
[2024-12-17] MEDS: Potassium Chloride Oral Tablet 20 MEQ 40 MEQ PO (00:11)
[2024-12-17 00:26] LABS: Reflex Lactate? Y
--- NOTE | 2024-12-17 03:34 | CON.PCM.CC_ITS ---
HPI Consult Data Date of Consult: 12/17/24 HPI Narrative Reason for Consultation: Septic shock HPI Narrative: Patient is an 84 y/o WM with a hx of CAD s/p CABG, AFib, HTN, HLD, Hypothyroidism, Diabetes mellitus type II, BPH and anemia who presented to the ER here overnight with intractable nausea, emesis, diarrhea for the last several days with no associated fever or any URI type symptoms. he was found to he hypotehsive in the ER and have an UTI c/w an UTI as well as an elevated WBC and lactate. He was placed on IV abx and fluids. He was though to likely need pressors and was admitted to the ICU and I was consulted. On interview, the patient stated that he was doing well. He stated that he had been feeling nauseated x 4 days. He denies any dysuria, coughing, wheezing, chest pain or abdominal pain. On LR at 100. On 2LPM. Per nurse, he was never placed on levophed. [facility] Medical History Former tobacco use BPH (benign prostatic hyperplasia) Diabetes mellitus, type 2 Hypothyroidism HLD (hyperlipidemia) HTN (hypertension) PAF (paroxysmal atrial fibrillation) CAD (coronary artery disease) Chronic anemia Chronic kidney disease Home Medications ?Medication ?Instructions ?Recorded ?Last Taken ?Type finasteride 5 mg tablet 5 mg PO DAILY 12/16/24 Unkno wn History glipizide 5 mg tablet 5 mg PO DAILY 12/16/24 Unkno wn History levothyroxine 25 mcg tablet 25 mcg PO DAILY 12/16/24 U nknown History (Euthyrox) losartan 50 mg tablet (Cozaar) 50 mg PO DAILY 12/16/24 Unknown History metoprolol tartrate 50 mg tablet 50 mg PO DAILY Unknown History (Lopressor) simvastatin 40 mg tablet 40 mg PO DAILY 12/16/24 Unkn own History tamsulosin 0.4 mg capsule (Flomax) 0.4 mg PO DAILY 07/07 Unknown History warfarin 1 mg tablet (Jantoven) 1 mg PO .unknown 12/16 Unknown History Allergy/AdvReac Type Severity Reaction Status Date / Time No Known Allergies Allergy Verified 12/16/24 16:59 Family History (Updated 12/16/24 @ 22:[address] Zofia Sheffield MD) Mother COPD (chronic obstructive pulmonary disease) Lung cancer Father COPD (chronic obstructive pulmonary disease) Liver cancer Surgical History History of foot surgery S/P CABG (coronary artery bypass graft) Social History (Updated 12/16/24 @ 22:[address] Zofia Sheffield MD) household members: spouse and family Smoking Status: Former smoker alcohol intake: never substance use type: does not use ROS ROS Narrative Negative aside from what was mentioned in the HPI. Objective Data Objective Data Vital Signs: Vital Signs Last response 3 Temperature 36.7 C 12/17/24 03:00 Temperature Source Oral 12/17/24 03:00 Pulse Rate 82 12/17/24 03:00 Respiratory Rate 23 H 12/17/24 03:00 Respiratory Effort Normal, Non-Labored 12/16/24 23:45 Respiratory Depth Normal 12/16/24 23:45 Respiratory Pattern Normal 12/16/24 23:45 Blood Pressure 91/52 L 12/17/24 03:00 Blood Pressure Mean 65 12/17/24 03:00 Blood Pressure Source Monitor 12/17/24 03:00 Blood Pressure Position Semi-Fowlers 12/17/24 03:00 Blood Pressure Location Right Arm 12/17/24 03:00 Pulse Ox 99 12/17/24 03:30 Oxygen Delivery Method Nasal Cannula 12/17/24 03:30 Oxygen Flow Rate (L/min) 2 12/17/24 03:30 I&O: I&O Last 24 Hours 3 12/16/24 12/16/24 12/17/24 11:59 23:59 11:59 Intake Total 2200 / 2200 1100 / 1100 Output Total 0 / 0 Balance 2200 / 2200 1100 / 1100 I&O: Total Stay 3 12/16/24 16:53 thru 12/17/24 00:25 Intake Total 3300 Output Total 0 Balance 3300 Current Meds Ordered / Administered: Current meds ordered / Administered 3 Generic Name Dose Route Start Last Admin Trade Name Freq PRN Reason Stop Dose Admin Acetaminophen 650 mg 12/16/24 22:59 Acetaminophen 325 Mg Tablet PO Q4H PRN PRN Fever, pain 1-12/22 Al Hydroxide/Mg Hydroxide 30 ml 12/16/24 22:59 Mag Hydrox/Al Hydrox/Simeth 30 Ml Udc PO Q6H PRN PRN Gastric Burning Albuterol Sulfate 2.5 mg 12/16/24 22:59 Albuterol 2.5 Mg/3 Ml Vial.Neb. INHALATION Q2H PRN PRN Dyspnea, wheezing Atorvastatin Calcium 20 mg 12/17/24 22:00 Atorvastatin Calcium 20 Mg Tablet PO QHS CRUZ Calamine/Phenol 1 applic 12/16/24 22:59 12/17/24 00:03 Menthol/Lanolin/Calamine/Znox 113 Gm Tube TOPICAL 1 applic 4X/DAY CRUZ Administration Protocol Finasteride 5 mg 12/17/24 10:00 Finasteride 5 Mg Tablet PO DAILY CRUZ Guaifenesin 10 ml 12/16/24 22:59 Guaifenesin 10 Ml Udc (200mg/10ml) PO Q4H PRN PRN COUGH Piperacillin Sod/Tazobactam 50 mls @ 12.5 mls/hr 12/17/24 06:00 Sod 3.375 gm/ Sodium Chloride IV 12/23/24 06:01 Q8 CRUZ Sodium Chloride 1,000 mls @ 100 mls/hr 12/16/24 22:59 12/17/24 00:03 IV 12/17/24 08:58 100 mls/hr .Q10H CRUZ Administration Pantoprazole Sodium 40 mg/ 100 mls @ 330 mls/hr 12/16/24 22:59 12/17/24 00:23 Sodium Chloride IV Infused Q12 CRUZ Infusion Sodium Chloride 250 mls @ 15 mls/hr 12/16/24 23:26 IV .[id number] PRN Saline Flush Sodium Chloride 250 mls @ 15 mls/hr 12/16/24 23:26 IV .[id number] PRN Additional IVPB Infusion Insulin Human Lispro 0 unit 12/16/24 23:15 12/17/24 00:12 Insulin Lispro 100 Unit/Ml Insuln.Pen SC Not Given Q6 [facility] Protocol Levothyroxine Sodium 25 mcg 12/17/24 06:00 Levothyroxine 25 Mcg Tablet PO DAILY@0600 CRUZ Melatonin 3 mg 12/16/24 22:59 Melatonin 3 Mg Tablet PO QHS PRN PRN INSOMNIA Ondansetron HCl 4 mg 12/16/24 22:59 Ondansetron 4 Mg/2 Ml Vial IV Q8H PRN PRN NAUSEA/VOMITING Sodium Chloride 10 - 40 ml 12/16/24 23:26 0.9% Saline Lock 10 Ml Syringe IV UD PRN SALINE FLUSH Tamsulosin HCl 0.4 mg 12/17/24 10:00 Tamsulosin Hcl 0.4 Mg Capsule PO DAILY [facility] Warfarin Sodium 1 mg 12/17/24 17:00 Warfarin (Pbkc) 1 Mg Tablet PO DAILY@1700 [facility] Physical Exam Const alert, oriented x3 and no apparent distress HEENT normocephalic, head/scalp atraumatic and moist oral mucous membranes Eyes PERRL, EOMs intact bilaterally, conjunctivae normal and no scleral icterus Neck full ROM, no lymphadenopathy, supple and no JVD Resp normal respiratory effort and no use of accessory muscles Auscultation: clear to auscultation bilaterally Cardio regular rate, regular rhythm, S1 normal heart sound, S2 normal heart sound, no murmurs, no rub, no gallops and no JVD GI normal to inspection, nondistended, normoactive bowel sounds, soft to palpation and non-tender Extremity no clubbing, cyanosis or edema Skin no rashes or lesions noted Neuro oriented x3, CN's II-XII intact bilaterally, moves all extremities and no focal motor deficits Lab / Micro Data 12/16/24 17:35 12/16/24 17:35 Labs: Laboratory Results - last 24 hr 12/16/24 17:35: WBC 24.2 H, RBC 3.18 L, Hgb 9.3 L, Hct 28.6 L, MCV 89.9, MCH 29.2, MCHC 32.5, RDW Std Deviation 49.5 H, RDW Coeff of [place] 14.9 H, Plt Count 233, MPV 8.9, Immature Gran % (Auto) 1.000 H, Neut % (Auto) 95.7 H, Lymph % (Auto) 1.8 L, [place] % (Auto) 1.3, Eos % (Auto) 0.0, Baso % (Auto) 0.2, Absolute Neuts (auto) 23.2 H, Absolute Lymphs (auto) 0.44 L, Nucleated RBC % 0, Differential Comment SCANNED, Platelet Estimate ADEQUATE, Sodium 139, Potassium 3.2 L, Chloride 101, Carbon Dioxide 22.3, Anion Gap 16 H, BUN 38 H, Creatinine 2.48 H, Estim Creat Clear Calc 26.41 L, Est GFR (MDRD) Non-Af 25 L, BUN/Creatinine Ratio 15.1, Glucose 143 H, Calcium 7.8, Magnesium 1.3 L, Total Bilirubin 0.52, AST 32, ALT 14, Alkaline Phosphatase 231 H, Total Protein 6.1, A lbumin 2.5 L, Globulin 3.6, Albumin/Globulin Ratio 0.7 L 12/16/24 18:30: PT Cancelled, INR Cancelled 12/16/24 19:00: PT Cancelled, INR Cancelled 12/16/24 20:00: PT 18.9 H, INR 1.5 12/16/24 20:18: Lactic Acid 2.6 H* 12/16/24 20:30: Urine Color Yellow, Urine Clarity Cloudy, Urine pH 6.5, Ur Specific [place] 1.010, Urine Protein 30 H, Urine Glucose (UA) Normal, Urine Ketones Negative, Urine Occult Blood 25 H, Urine Nitrite Negative, Urine Bilirubin Negative, Urine Urobilinogen Normal, Ur Leukocyte Esterase 500 H, Urine RBC 0 SEEN, Urine WBC >100 SEEN, Ur Squamous Epith Cells 0-5 SEEN, Urine Bacteria 2+, Urine Mucus 0 SEEN 12/17/24 00:12: POC Glucose 151 H 12/17/24 00:55: Lactic Acid 1.5 Rhythm Strip Rhythm Strip: A-fib Rate: 95 Ectopy: None Imaging Radiology Impression Chest X-Ray 12/16/24 17:55 IMPRESSION: Mild cardiomegaly and mild pulmonary vascular congestion. [facility] Assessment and Plan . Assessment and plan: 1. Septic shock 2. Pyuria 3. T2DM 4. BPH 5. CAD 6. A-fib 7. HTN 8. HLD 9. Hypothyroidism 10. Anemia -Wean O2 as able. -Continue Zosyn. -F/U blood and urine cx. -F/U C. Diff. -On LR at 100 cc/hr. -Start levophed if needed. Goal MAP > 65. -Replete K and Mg now. -Check CMP, CBC, Mg, phos, INR in the AM. -NPO. On IV BID PPI and coumadin. Critical Care Time: 60 mins The entirety of this encounter was done via Telemedicine
[2024-12-17 03:38] LABS: Hematocrit 26.3 % (40-54); Hemoglobin 8.2 g/dL (13.0-16.5); Mean Corp Hgb Conc 31.2 g/dL (32-36); Mean Corpuscular Volume 91.3 fL (80-94); Mean Platelet Vol. 8.8 fl (6.2-12.0); POSITIVE DIFFERENTIAL YES; POSITIVE MORPHOLOGY YES; Platelet Count 207 K/mm3 (150-450); RBC Distribution Width CV 15.0 % (11.6-14.6); RBC Distribution Width SD 49.9 fl (35.1-43.9); Red Blood Count 2.88 M/mm3 (4.6-6.2); White Blood Count 25.2 K/mm3 (4.4-11.0)
[2024-12-17 03:52] LABS: Prothrombin Time (Protime)PT. 18.9 SECONDS (11.7-14.9)
[2024-12-17 04:23] LABS: Differential Indicated MANUAL DIFF
[2024-12-17 04:28] LABS: Neutrophil-Segmented 89 % (47-70); Total Cells Counted 100 (MANUAL DIFF)
[2024-12-17 04:30] LABS: Red Cell Morphology NORM C+C NORMAL (NORM C&C)
[2024-12-17 04:40] LABS: AST(SGOT) 34 U/L (<=37); Alanine Aminotransfer ALT/SGPT 16 U/L (<=46); Albumin, Serum 2.4 g/dL (3.4-4.8); Alkaline Phosphatase 204 U/L (40-129); Anion Gap 13 (5-15); BUN 38 mg/dL (4-19); BUN/Creat Ratio 15.7 RATIO (10-20); Calcium,Total 7.1 mg/dL (7.6-11.0); Carbon Dioxide 21.8 mmol/L (21.0-32.0); Chloride 107 mmol/L (98-108); Estimated Creatinine Clearance 25.77 ml/min (50-250); Globulin 3.5 g/dL (2.2-4.2); Glucose 173 mg/dL (70-99); Potassium 4.0 mmol/L (3.3-5.1)
[2024-12-17 05:00] LABS: Magnesium 1.2 mg/dL (1.5-2.2)
[2024-12-17] MEDS: 0.9% Saline Lock 10 ML Syringe IV ×3 (05:38→17:45)
[2024-12-17] MEDS: Piperacil/Tazobactam 3.375 GM in 0.9% Normal Saline (50mL MB+) 50 ML IV ×3 (05:39→21:14)
--- NOTE | 2024-12-17 07:22 | PN.HOSP_ITS ---
Reason for Visit Chief Complaint: Intractable N/V/D. Subjective Subjective Patient is an 84-year-old gentleman, admitted with nausea vomiting diarrhea and generalized weakness. Patient was found to have abnormal urinalysis elevated WBC count and hypotensive. An assessment of sepsis secondary to complicated UTI made admitted to the intensive care unit for further management Objective Data Objective Data Vital Signs: Vital Signs Temp Pulse Resp BP Pulse Ox O2 Del Method O2 Flow Rate 98.6 F 76 17 107/50 L 94 Nasal Cannula 2 12/17/24 06:00 12/17/24 06:00 12/17/24 06:00 12/17/24 06:00 12/17/24 06:41 12/17/24 06:41 12/17/24 06:41 Oxygen Flow Rate (L/min) 2 Oxygen Delivery Method Nasal Cannula Weight: 88.5 kg Body Mass Index (BMI) 27.9 Intake & Output: Intake and Output for Last 24 Hours 12/15/24 12/16/24 12/17/24 23:59 23:59 23:59 Intake Total 2200 / 2200 1100 / 1100 Output Total 0 / 0 Balance 2200 / 2200 1100 / 1100 Lab / Micro Data 12/17/24 03:27 12/17/24 03:27 Labs: Laboratory Results - last 24 hr 12/16/24 17:35: WBC 24.2 H, RBC 3.18 L, Hgb 9.3 L, Hct 28.6 L, MCV 89.9, MCH 29.2, MCHC 32.5, RDW Std Deviation 49.5 H, RDW Coeff of [place] 14.9 H, Plt Count 233, MPV 8.9, Immature Gran % (Auto) 1.000 H, Neut % (Auto) 95.7 H, Lymph % (Auto) 1.8 L, [place] % (Auto) 1.3, Eos % (Auto) 0.0, Baso % (Auto) 0.2, Absolute Neuts (auto) 23.2 H, Absolute Lymphs (auto) 0.44 L, Nucleated RBC % 0, Differential Comment SCANNED, Platelet Estimate ADEQUATE, Sodium 139, Potassium 3.2 L, Chloride 101, Carbon Dioxide 22.3, Anion Gap 16 H, BUN 38 H, Creatinine 2.48 H, Estim Creat Clear Calc 26.41 L, Est GFR (MDRD) Non-Af 25 L, BUN/Creatinine Ratio 15.1, Glucose 143 H, Calcium 7.8, Magnesium 1.3 L, Total Bilirubin 0.52, AST 32, ALT 14, Alkaline Phosphatase 231 H, Total Protein 6.1, A lbumin 2.5 L, Globulin 3.6, Albumin/Globulin Ratio 0.7 L 12/16/24 18:30: PT Cancelled, INR Cancelled 12/16/24 19:00: PT Cancelled, INR Cancelled 12/16/24 20:00: PT 18.9 H, INR 1.5 12/16/24 20:18: Lactic Acid 2.6 H* 12/16/24 20:30: Urine Color Yellow, Urine Clarity Cloudy, Urine pH 6.5, Ur Specific [place] 1.010, Urine Protein 30 H, Urine Glucose (UA) Normal, Urine Ketones Negative, Urine Occult Blood 25 H, Urine Nitrite Negative, Urine Bilirubin Negative, Urine Urobilinogen Normal, Ur Leukocyte Esterase 500 H, Urine RBC 0 SEEN, Urine WBC >100 SEEN, Ur Squamous Epith Cells 0-5 SEEN, Urine Bacteria 2+, Urine Mucus 0 SEEN 12/17/24 00:12: POC Glucose 151 H 12/17/24 00:55: Lactic Acid 1.5 12/17/24 03:27: WBC 25.2 H, RBC 2.88 L, Hgb 8.2 L, Hct 26.3 L, MCV 91.3, MCH 28.5, MCHC 31.2 L, RDW Std Deviation 49.9 H, RDW Coeff of [place] 15.0 H, Plt Count 207, MPV 8.8, Neut % (Auto) Not Reportable, Absolute Neuts (auto) 22.4 H, Absolute Lymphs (auto) 1.51, Total Counted 100, Neutrophils % (Manual) 89 H, L ymphocytes % (Manual) 6 L, Monocytes % (Manual) 5, Diff Path Review July, Platelet Estimate ADEQUATE, RBC Morphology NORM C+C, PT 18.9 H, INR 1.6, Sodium 142, Potassium 4.0, Chloride 107, Carbon Dioxide 21.8, Anion Gap 13, BUN 38 H, C reatinine 2.39 H, Estim Creat Clear Calc 25.77 L, Est GFR (MDRD) Non-Af 26 L, BUN/Creatinine Ratio 15.7, Glucose 173 H, Calcium 7.1 L, Phosphorus 3.2, M agnesium 1.2 L, Total Bilirubin 0.55, AST 34, ALT 16, Alkaline Phosphatase 204 H , Total Protein 5.9, Albumin 2.4 L, Globulin 3.5, Albumin/Globulin Ratio 0.7 L Radiography Diagnostic Testing: Radiology Impression Chest X-Ray 12/16/24 17:55 IMPRESSION: Mild cardiomegaly and mild pulmonary vascular congestion. Reading Location: [facility] Rhythm Strip Rhythm Strip: A-fib Rate: 95 Ectopy: None Physical Exam Narrative GENERAL: cooperative HEENT: Atraumatic; normocephalic EYES; Anicteric, Normal Conjunctiva NECK; supple, normal thyroid, RESPIRATORY: Diminished to auscultation CARDIOVASCULAR: Regular S1 S2, GI: soft, normoactive bowel sounds, : No Renal angle tenderness; EXTREMITIES: No edema, no clubbing, MUSCULOSKELETAL: no muscle wasting NEURO: Awake; no lateralizing signs. SKIN: No Rash PSYCH; Flat affect Assessment & Plan Assessment/Plan (1) Acute UTI: PLAN: Plan Patient is an 84-year-old gentleman admitted with nausea vomiting diarrhea for 12 duration. Patient was found to have abnormal urinalysis elevated WBC count and hypotensive. An assessment of sepsis secondary to complicated UTI made admitted to the intensive care unit for further management 1. Sepsis ? Secondary to acute complicated UTI. Patient admitted to the intensive care unit treatment initiated per protocol with IV fluid 30 cc/kg, cultures including blood and urine sent with initiation of broad-spectrum antibiotic therapy. Response to therapy monitored with serial lactic acid levels 2. Acute metabolic encephalopathy ? Secondary to sepsis management as discussed above 3. Hypokalemia ? Corrected per protocol repeat labs ordered in a.m. for subsequent eval 4. Anemia ? Secondary to chronic disorder monitoring H&H and transfuse if patient becomes symptomatic or hemoglobin falls below 7 5. BPH with lower urinary obstructive symptoms - Patient treated with tamsulosin and finasteride 6. Hypothyroidism ? Patient is on levothyroxine home dose continued 7. Diabetes mellitus type 2 ? Held patient glipizide placed on Accu-Cheks AC and at bedtime with sliding scale coverage 8. Dyslipidemia ? Patient is on simvastatin plan is to continue with a therapeutic substitution 9. Paroxysmal atrial fibrillation ? Rate controlled on metoprolol. Patient is on systemic anticoagulation with warfarin ordered daily INR for monitoring 10. Coronary artery disease ? Status post CABG 11. Essential hypertension ? Antihypertensives held on admission given his presentation 12. Recent history of left to osteomyelitis ? Patient apparently underwent resection of the left fifth toe at a facility in [place] on 10/21/2024. Patient is followed by podiatry as outpatient plan is to resume care following discharge 13. Renal failure ? Patient baseline creatinine unavailable started on IV fluid with subsequent monitoring of electrolytes ordered. Also ordered kidney ultrasound for subsequent eval 14. Hypomagnesemia ? Corrected via parenteral as well as oral routes repeat magnesium ordered in a.m. for follow-up 15 DVT prophylaxis ? Patient is on Coumadin no need for additional measures 16. Diarrhea ? Patient has not had any recurrence of diarrhea since admission his isolation subsequently discontinued Time spent in the patient's overall evaluation,decision-making process, review of diagnostic data, adjustment of management, discussion with other providers, nursing nursing and ancillary staff involved in patient's care documentation, 55 Minutes Charges/Coding Visit Charges Inpatient E&M: 34422 [facility] Hosp L3
[2024-12-17] MEDS: Magnesium Sulfate 2 GM in Dextrose 5%-Water (100mL Bag) 100 ML IV (08:13)
[2024-12-17] MEDS: Magnesium Chloride 64 MG Delay Rel.Tablet 128 MG PO ×2 (08:14→21:13)
[2024-12-17] MEDS: 0.9% Normal Saline (250mL Bag) 250 ML 15 ML IV (08:39)
[2024-12-17] MEDS: Juven (unflavored) Packet 1 PACKET PO (15:58)
[2024-12-17] MEDS: WARFARIN 1 MG PO (17:32)
[2024-12-18] VITALS (10 sets, daily range): BP systolic 94–125; BP diastolic 46–65; PULSE 88–114; RESP 16–18; TEMP 36.3–36.9; O2SAT 95–97; BMI 29.4
[2024-12-18 04:49] LABS: Hematocrit 29.7 % (40-54); Hemoglobin 9.4 g/dL (13.0-16.5); Immature Granulocytes Count 0.070 X10^3/uL (0.0-0.0); Mean Corp Hgb Conc 31.6 g/dL (32-36); Mean Corpuscular Volume 91.1 fL (80-94); Mean Platelet Vol. 9.3 fl (6.2-12.0); NRBC Flagged by Analyzer 0 % (0-5); Platelet Count 185 K/mm3 (150-450); RBC Distribution Width CV 15.1 % (11.6-14.6); RBC Distribution Width SD 50.7 fl (35.1-43.9); Red Blood Count 3.26 M/mm3 (4.6-6.2); White Blood Count 16.1 K/mm3 (4.4-11.0)
[2024-12-18 05:26] LABS: Anion Gap 13 (5-15); BUN 42 mg/dL (4-19); BUN/Creat Ratio 16.5 RATIO (10-20); Calcium,Total 7.5 mg/dL (7.6-11.0); Carbon Dioxide 21.0 mmol/L (21.0-32.0); Chloride 105 mmol/L (98-108); Estimated Creatinine Clearance 24.80 ml/min (50-250); Glucose 168 mg/dL (70-99); Magnesium 1.6 mg/dL (1.5-2.2); Potassium 3.7 mmol/L (3.3-5.1)
[2024-12-18] MEDS: 0.9% Saline Lock 10 ML Syringe IV (06:26)
[2024-12-18] MEDS: Piperacil/Tazobactam 3.375 GM in 0.9% Normal Saline (50mL MB+) 50 ML IV ×3 (06:28→20:58)
[2024-12-18] MEDS: 0.9% Normal Saline (250mL Bag) 250 ML 15 ML IV (06:29)
--- NOTE | 2024-12-18 06:52 | PCM.PN.INT ---
Assessment & Plan Assessment/Plan (1) Sepsis: PLAN: Plan RECOMMENDATIONS: 1. Continue empiric antibiotics, pending culture results. 2. Encourage incentive spirometer use and mobilize patient as tolerated. 3. Continue Coumadin and check INR daily. 4. The patient is medically stable for transfer out of the intensive care unit. Will sign off at this time. IMPRESSIONS: 1. Gram-negative sepsis The patient was admitted to the hospital with gram-negative bacteremia secondary to suspected underlying urinary tract source of infection. The patient was treated per sepsis protocol with IV fluid resuscitation and antimicrobial therapy. He has not required any vasopressor support. The patient appears clinically stable. Will continue empiric antimicrobials, pending culture results. 2. History of BPH/hypothyroidism/diabetes mellitus/paroxysmal atrial fibrillation/coronary artery disease/chronic kidney disease Complicates care, management, recovery and prognosis. Continue home medications as indicated. Continue Coumadin per home regimen. Check INR daily. This note was generated with [employer] dictation software. It may contain incorrect words, spelling, and punctuation that were not noted in checking the note before signing. Subjective Subjective The patient was seen and examined at the bedside this morning. Events from the last 24 hours have been reviewed. The patient is currently afebrile, hemodynamically stable and maintaining appropriate oxygen saturations on room air. No overnight issues were identified by the nursing staff. The patient has no specific complaints this morning. White blood cell count has improved to 16,000. Hemoglobin and platelet count are stable. Creatinine remains elevated at 2.54. Objective Data Objective Data The patient's most recent lab work, culture data and imaging studies have all been personally reviewed. 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 Vital Signs: Vital Signs Temp Pulse Resp BP Pulse Ox O2 Del Method O2 Flow Rate 97.5 F L 90 17 125/65 H 95 Room Air 2 12/18/24 05:00 12/18/24 05:00 12/18/24 05:00 12/18/24 05:00 12/18/24 05:00 12/18/24 05:00 12/17/24 06:41 Oxygen Flow Rate (L/min) 2 Oxygen Delivery Method Room Air Weight: 205 lb 0.478 oz Body Mass Index (BMI) 29.4 Intake & Output: Intake and Output for Last 24 Hours 12/16/24 12/17/24 12/18/24 23:59 23:59 23:59 Intake Total 2200 / 2200 4169 / 4169 300 / 300 Output Total 450 / 450 300 / 300 Balance 2200 / 2200 3719 / 3719 0 / 0 Lab / Micro Data Attestation: I reviewed the patient's lab results. 12/18/24 04:42 12/18/24 04:42 Labs: Laboratory Results - last 24 hr 12/17/24 05:41: POC Glucose 128 H 12/17/24 12:03: POC Glucose 174 H 12/17/24 15:51: POC Glucose 185 H 12/17/24 21:03: POC Glucose 144 H 12/18/24 04:42: WBC 16.1 H, RBC 3.26 L, Hgb 9.4 L, Hct 29.7 L, MCV 91.1, MCH 28.8, MCHC 31.6 L, RDW Std Deviation 50.7 H, RDW Coeff of Rol[place] 15.1 H, Plt Count 185, MPV 9.3, Immature Gran % (Auto) 0.400, Neut % (Auto) 77.7 H, Lymph % (Auto) 13.7 L, [place] % (Auto) 5.8, Eos % (Auto) 1.9, Baso % (Auto) 0.5, Absolute Neuts (auto) 12.5 H, Absolute Lymphs (auto) 2.20, Nucleated RBC % 0, Sodium 139, Potassium 3.7, Chloride 105, Carbon Dioxide 21.0, Anion Gap 13, BUN 42 H, Creatinine 2.54 H, Estim Creat Clear Calc 24.80 L, Est GFR (MDRD) Non-Af 24 L, BUN/Creatinine Ratio 16.5, Glucose 168 H, Calcium 7.5 L, Phosphorus 2.5 L, Magnesium 1.6 Micro: Microbiology 12/16/24 22:00 Blood Culture (Wb) - Anticubital Left Blood Culture - Preliminary Rhythm Strip Rhythm Strip: A-fib Rate: 95 Ectopy: None Physical Exam Const alert and no apparent distress General Appearance: cooperative HEENT normocephalic, head/scalp atraumatic and moist oral mucous membranes Eyes PERRL, EOMs intact bilaterally and conjunctivae normal Neck supple General: trachea midline Chest inspection of chest normal Resp normal respiratory effort Auscultation: Negative for rales, rhonchi or wheezes Cardio regular rate and regular rhythm GI soft to palpation and non-tender Extremity no clubbing, cyanosis or edema Neuro CN's II-XII intact bilaterally, moves all extremities and no focal motor deficits Psych cooperative and affect normal Charges/Coding Visit Charges Inpatient E&M: 08549 Subs Hosp L2
--- NOTE | 2024-12-18 07:00 | US_ITS ---
PROCEDURE: KIDNEY AND BLADDER 12/18/2024 REASON FOR EXAM: RENAL FAILURE TECHNIQUE: Procedure Code: USKI Modality: US Procedure: KIDNEY AND BLADDER COMPARISON: None FINDINGS: Kidneys: Normal renal sizes, parenchymal thicknesses, and echotextures. [place]: No evidence of hydronephrosis. Cysts or Masses: Multiple bilateral renal cysts. The largest cyst in the right kidney measures 2.3 cm 3 cm 2.6 cm. The largest cyst in the left kidney measures 3.9 cm 4.2 cm 4.3 cm. RIGHT Kidney Size: 10.8 cm x 5 cm x 5.2 cm Cortical Thickness (if discernible): 14 mm (>6mm is normal) LEFT Kidney Size: 10.7 cm x 5.7 cm x 5.2 cm Cortical Thickness (if discernible): 16 mm. (>6mm is normal) US/Kidney and Bladder IMPRESSION: Bilateral renal cysts. No evidence of hydronephrosis. Reading Location: [id number]
--- NOTE | 2024-12-18 07:15 | PN.HOSP_ITS ---
Reason for Visit Chief Complaint: Intractable N/V/D. Subjective Subjective Patient states he is overall feeling much better. Anxious to get moving. States he feels a little bit weak and decreased energy overall but wants to go home with home health care if possible. Appetite has returned back to normal. Objective Data Objective Data Vital Signs: Vital Signs Temp Pulse Resp BP Pulse Ox O2 Del Method O2 Flow Rate 97.5 F L 90 17 125/65 H 95 Room Air 2 12/18/24 05:00 12/18/24 05:00 12/18/24 05:00 12/18/24 05:00 12/18/24 07:13 12/18/24 07:13 12/17/24 06:41 Oxygen Flow Rate (L/min) 2 Oxygen Delivery Method Room Air Weight: 93 kg Body Mass Index (BMI) 29.4 Intake & Output: Intake and Output for Last 24 Hours 12/16/24 12/17/24 12/18/24 23:59 23:59 23:59 Intake Total 2200 / 2200 4169 / 4169 300 / 300 Output Total 450 / 450 1300 / 1300 Balance 2200 / 2200 3719 / 3719 -1000 / -1000 Lab / Micro Data 12/18/24 04:42 12/18/24 04:42 Labs: Laboratory Results - last 24 hr 12/17/24 05:41: POC Glucose 128 H 12/17/24 12:03: POC Glucose 174 H 12/17/24 15:51: POC Glucose 185 H 12/17/24 21:03: POC Glucose 144 H 12/18/24 04:42: WBC 16.1 H, RBC 3.26 L, Hgb 9.4 L, Hct 29.7 L, MCV 91.1, MCH 28.8, MCHC 31.6 L, RDW Std Deviation 50.7 H, RDW Coeff of Rolando 15.1 H, Plt Count 185, MPV 9.3, Immature Gran % (Auto) 0.400, Neut % (Auto) 77.7 H, Lymph % (Auto) 13.7 L, [place] % (Auto) 5.8, Eos % (Auto) 1.9, Baso % (Auto) 0.5, Absolute Neuts (auto) 12.5 H, Absolute Lymphs (auto) 2.20, Nucleated RBC % 0, Sodium 139, Potassium 3.7, Chloride 105, Carbon Dioxide 21.0, Anion Gap 13, BUN 42 H, C reatinine 2.54 H, Estim Creat Clear Calc 24.80 L, Est GFR (MDRD) Non-Af 24 L, BUN/Creatinine Ratio 16.5, Glucose 168 H, Calcium 7.5 L, Phosphorus 2.5 L, Magnesium 1.6 Micro: Microbiology 12/16/24 22:00 Blood Culture (Wb) - Anticubital Left Blood Culture - Preliminary Rhythm Strip Rhythm Strip: A-fib Rate: 95 Ectopy: None Physical Exam Const alert, oriented x3, no apparent distress and well nourished Constitutional Narrative: Elderly, white male, sitting up in a chair at the bedside, appears comfortable, nontoxic at this time, overweight HEENT head/scalp atraumatic and moist oral mucous membranes HEENT Narrative: Dentures in place, Mallampati 2, no thrush Head and Scalp: normocephalic Resp normal respiratory effort, no retractions, no use of accessory muscles and No clear to auscultation bilaterally Resp Narrative: Crackles at bases bilaterally-suspect atelectasis, no other adventitious sounds noted, breathing is comfortable Auscultation: crackles; Negative for rhonchi or wheezes Cardio regular rate, S1 normal heart sound, S2 normal heart sound, no murmurs, no rub, no gallops and no clicks Cardio Narrative: Irregularly irregular rhythm with good rate control GI normal to inspection, nondistended, normoactive bowel sounds, soft to palpation and non-tender Extremity no clubbing, cyanosis or edema Extremity Narrative: 2+ pedal pulses bilaterally, 2+ radial pulses bilaterally Neuro moves all extremities and no focal motor deficits Neuro Narrative: Mild generalized weakness noted proximal greater than distal but no focal deficits Speech: speech normal Psych affect normal Psych Narrative: Very pleasant, eye contact is good and patient interacts appropriately Assessment & Plan Assessment/Plan (1) Sepsis: (2) Acute UTI: (3) Leukocytosis: (4) Hypophosphatemia: (5) Nausea vomiting and diarrhea: PLAN: Plan Sepsis secondary to acute urinary tract infection related to chronically indwelling Casas - Patient with chronically indwelling Casas for BPH - Patient treated per sepsis protocol and sepsis now resolved - Blood cultures remain pending - Urine culture positive for GNR LF with finalized culture pending - Continue antibiotics with Zosyn -Will plan on discharge home with oral antibiotics for complicated UTI and urology follow-up - Given resolution of sepsis syndrome may transfer to medical floor Nausea/vomiting/diarrhea - Resolved - P.o. intake is good Generalized weakness and debility secondary to acute illness - Mild - Anticipate patient should be able to go home with home health care at discharge - This is the patient desires as well Hypophosphatemia - 15 normal Phos replacement - Recheck in a.m. Leukocytosis - Trending down - Left shift is resolving as well Chronic anemia of renal disease - Hemoglobin stable - Repeat CBC in a.m. 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 - Continue Flomax and finasteride - Referral to urology as outpatient CKD stage IV - Baseline renal function it was unclear on admission but seems to be stabilized in the 2.4-2.6 range - Stable - Monitor PAF - Patient chronically in and out of A-fib - Restart home beta-joo - Continue home Coumadin - Daily INR with goal INR of 2-3 CAD/HPL/essential HTN - Continue home simvastatin - Continue to hold home losartan - Restart home metoprolol Hypothyroidism - Continue home levothyroxine DM-2 -Patient on glipizide as an outpatient - May not be the best ongoing choice due to his renal dysfunction -Will restart glipizide here today to trend blood sugars - Plan to discontinue SSI if blood sugars are well-controlled with glipizide History of left fifth digit osteomyelitis - Clinically stable - Ongoing outpatient follow-up as previously recommended DVT prophylaxis - Patient is subtherapeutic INR at 1.6 - Start subcu heparin twice daily until INR is greater than 2.0 CODE STATUS - DNR CCA with no intubation Charges/Coding Visit Charges Inpatient E&M: 14786 Subs Hosp L2
[2024-12-18] MEDS: Juven (unflavored) Packet 1 PACKET PO ×2 (07:43→17:02)
[2024-12-18] MEDS: Magnesium Chloride 64 MG Delay Rel.Tablet 128 MG PO ×2 (07:44→20:59)
--- NOTE | 2024-12-18 10:12 | CASEMGMT ---
Addendum entered by Shaina Downing 12/18/24 14:13: [facility] states that they would be able to accept but prefer the pt to remain with the existing HHC company. DPA notified and plans to contact [place] for ISHMAEL. Addendum entered by Shaina Downing 12/18/24 10:43: [facility] requesting which Urologist the pt has seen. Pt cannot recall at this time and states to call his son. TC to pt's son (Lorenzo) who is agreeable to helping. Lorenzo states that the pt has seen Dr Egan. Lorenzo states that the pt has a BGM Rx through the PCP but has refused to fill it. Lorenzo also states the pt is active with skilled HHC through [facility] out of [place] (SN and PT). However, Lorenzo prefers [facility] as they are much closer to pt's home. Lorenzo states that if [facility] is able to accept that he prefers [facility] and if not, he is OK with [place] resuming care. Lorenzo thanks this proposal lead writer and denies further questions or concerns. Pt is agreeable and denies further questions at this time. Original Note: RN AZUL Assessment Face to Face with patient for initial transition planning/care coordination assessment. RN CM introduced self and role at [facility], pt voices understanding. Pt is A&Ox3 and is resting comfortably in the chair and is calm. Care providers, pharmacy, and demographics verified. Admitting dx: Sepsis, UTI, N/V/D LACE Strata: 1 PCP: James Gardner Specialists: Denies. Pt states that he recently moved from [place] Preferred Pharmacy: [facility] Insurance: [facility] A/B, [place] Prescription Benefit: Yes LNOK: Lorenzo (Son and POA), Tyrel Espitia (GS) Living Arrangements: Pt lives with his , son, and GS in a single story home with 2 steps to enter. Pt reports that his has memory problems. SW has provided resources, see note. ADLs/IADLs: Pt reports that he is indep at baseline. See PT notes Transportation: Son, [employer] D[employer]: FWW, WC, Cane, walk in shower with shower chair and grab bars. Noted that the pt has a hx of type II DM. Inquired if the pt has the equipment to check his BS levels at home. Pt declines and states that this was left in [place]. Inquired if the pt would like an Rx for BGM and supplies. However, pt declines and states that his son will get this for him. HHC/SNF: Denies hx of Pt?s goal: Home Plan: Home with HHC. Per Dr Leonard, pt will likely be medically ready for DC tomorrow and is recommending HHC for the pt. Pt is agreeable. Pt declines wanting to review a list of local in-network [facility] Agencies at this time as he prefers [facility]. TC to [facility] and referral made for SN, PT, and SW. Awaiting return response. Pt states that his son and GS are also able to provide him with support at home. Pt denies further questions or concerns. CM to follow. Renato Downing RN CM
[2024-12-18] MEDS: Sodium Phosphate/Na Biphos 15 MMOL in 0.9% Normal Saline (250mL Bag) 250 ML 125 MMOL IV (10:56)
[2024-12-18] MEDS: Metoprolol(XL)Succ 50 MG Tablet PO (10:57)
--- NOTE | 2024-12-18 11:03 | CASEMGMT ---
Addendum entered by Naa Guzman 12/19/24 10:46: Social Work SW received a call from [facility], they already had a referral for both pt and his , and are following up w/them, so this SW's referral was a duplicate. ANTONIA Catherine Original Note: Social Work SW met w/pt in room as SDOH triggered. Pt explained his concerns around his home situation are in regard to his who has Alzheimer's. Pt explained he and his just moved here from [place] October 21. They moved here due to his 's needs. She does not have a PCP here yet, no additional help at home. He and are living w/his son(who he states is the orthopedic assistant at [employer]) and grandson(who is 19 and a student at [employer]). Pt is open to resources for his . He is not sure at this time if they will stay here or return to ID. Pt was not interested in resources for the Alzheimer's Support Group. SW did provide to pt a list PCPs for his , a list of private hire aide agencies, and offered to make a referral to [facility] for his and he was agreeable to this. Referral made. SW remains available for any additional support or resources for pt in regard to his . ANTONIA Catherine
[2024-12-18] MEDS: Heparin Injection (Vial) 5,000 UNIT/ML VIAL 5000 UNIT SC ×2 (12:03→20:58)
--- NOTE | 2024-12-18 15:13 | WOUNDNOTE ---
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
--- NOTE | 2024-12-18 15:14 | WOUNDNOTE ---
wound photo: left lateral foot
--- NOTE | 2024-12-18 15:15 | WOUNDNOTE ---
wound photo: right heel
--- NOTE | 2024-12-18 15:47 | WOUNDNOTE ---
wound photos: bilateral buttocks
--- NOTE | 2024-12-18 16:01 | CASEMGMT ---
Addendum entered by Georgette Berg 12/19/24 10:35: [facility] states that they will resume skilled services at discharge. TREV CM updated. Georgette Berg DC Planning Asst. Original Note: Discharge Planning ISHMAEL referral sent to Mary Aguirre. Georgette Berg DC Planning Asst.
[2024-12-18] MEDS: WARFARIN 1 MG PO (17:04)
[2024-12-19] MEDS: Piperacil/Tazobactam 3.375 GM in 0.9% Normal Saline (50mL MB+) 50 ML IV (06:00)
--- NOTE | 2024-12-19 06:06 | NURSING ---
Pt became more confused throughout shift and refused care early am and this morning.
[2024-12-19 07:19] VITALS: O2SAT 95
[2024-12-19 09:20] LABS: Hematocrit 26.8 % (40-54); Hemoglobin 8.5 g/dL (13.0-16.5); Immature Granulocytes Count 0.060 X10^3/uL (0.0-0.0); Mean Corp Hgb Conc 31.7 g/dL (32-36); Mean Corpuscular Volume 89.6 fL (80-94); Mean Platelet Vol. 8.9 fl (6.2-12.0); NRBC Flagged by Analyzer 0 % (0-5); Platelet Count 182 K/mm3 (150-450); RBC Distribution Width CV 15.1 % (11.6-14.6); RBC Distribution Width SD 49.4 fl (35.1-43.9); Red Blood Count 2.99 M/mm3 (4.6-6.2); White Blood Count 13.3 K/mm3 (4.4-11.0)
[2024-12-19 09:28] LABS: Prothrombin Time (Protime)PT. 19.2 SECONDS (11.7-14.9)
[2024-12-19 09:31] VITALS: BP 105/51; PULSE 85; RESP 16; TEMP 36.7; O2SAT 90
[2024-12-19 09:59] LABS: Anion Gap 12 (5-15); BUN 41 mg/dL (4-19); BUN/Creat Ratio 16.6 RATIO (10-20); Calcium,Total 7.7 mg/dL (7.6-11.0); Carbon Dioxide 19.1 mmol/L (21.0-32.0); Chloride 108 mmol/L (98-108); Estimated Creatinine Clearance 25.40 ml/min (50-250); Glucose 120 mg/dL (70-99); Potassium 3.9 mmol/L (3.3-5.1)
--- NOTE | 2024-12-19 10:32 | CASEMGMT ---
Addendum entered by Bianca Xiong 12/19/24 16:15: Updated [facility] that pt will go to SNF s/t upon dc. Addendum entered by Bianca Xiong 12/19/24 16:14: Spoke with therapists this date who states pt will need 24 hour care at home. TC to pt son, Lorenzo, he is aware of the care needed and possibility of IV or IM atb at dc. He states that he feels at this point it would be best if pt went to a facility s/t. He is agreeable to receiving a list texted to his phone. A list of SNF providers including quality and resource use data and consistent with the patient?s preferred geographic region, medical needs, and insurance network were provided via the [employer] Link. He is aware to select his top 3 preferences. TREV LIANG to follow. Addendum entered by Bianca Xiong 12/19/24 15:14: TC to pt son to make aware of ID note with atb possibilities. Therapy has not yet worked with pt. No answer at this time. Original Note: Pt with confusion. Noted plan is for HHC, tc to pt son to make aware he is able/agreeable with pt returning home with his current functional level. Discussed therapy notes with him from yesterday. Discussed options of HHC vs SNF. Pt son states he is already taking care of his mother and if his father needs great help this will be difficult for him to do. TREV LIANG to call him after today's therapy sessions to discuss final plans.
--- NOTE | 2024-12-19 10:48 | CON.PCM.ID_ITS ---
Assessment & Plan Assessment/Plan (1) Sepsis: PLAN: sepsis due to ESBL K pneumo bacteremia secondary to chronic schumacher - overall much improved. Renal u/s showed no hydro, stone, or abscess. On zosyn. Will change to iv meropenem q12 based on GFR. Plan for discharge will be midline and iv abx vs IM ertapenem. Will follow, thank you (2) Acute UTI: (3) Bacteremia due to Klebsiella pneumoniae: HPI Consult Data Date of Consult: 12/19/24 HPI Narrative Reason for Consultation: uti HPI Narrative: ESTEFANY DE LA GARZA, is a 84 M with h/o CAD s/p CABG, DM, BPH, chronic schumacher, presented to ED 12/16 with several days n/v/d, not feeling well. Denies fever or chills. Denies abd pain or flank pain. Admitted here on zosyn, feeling better. Full ROS performed and neg except as noted above. [facility] Medical History CKD (chronic kidney disease), stage IV Former tobacco use BPH (benign prostatic hyperplasia) Diabetes mellitus, type 2 Hypothyroidism HLD (hyperlipidemia) HTN (hypertension) PAF (paroxysmal atrial fibrillation) CAD (coronary artery disease) Chronic anemia Chronic kidney disease Home Medications ?Medication ?Instructions ?Recorded ?Last Taken ?Type finasteride 5 mg tablet 5 mg PO DAILY 12/16/24 Unkno wn History glipizide 5 mg tablet 5 mg PO DAILY 12/16/24 Unkno wn History levothyroxine 25 mcg tablet 25 mcg PO DAILY 12/16/24 U nknown History (Euthyrox) losartan 50 mg tablet (Cozaar) 50 mg PO DAILY 12/16/24 Unknown History simvastatin 40 mg tablet 40 mg PO DAILY 12/16/24 Unkn own History tamsulosin 0.4 mg capsule (Flomax) 0.4 mg PO DAILY 07/07 Unknown History warfarin 1 mg tablet (Jantoven) 1 mg PO .unknown 12/16 Unknown History metoprolol succinate 50 mg 50 mg PO DAILY BLOOD PRESSU RE 12/18/24 Unknown History tablet,extended release 24 hr Allergy/AdvReac Type Severity Reaction Status Date / Time No Known Allergies Allergy Verified 12/16/24 16:59 Family History (Updated 12/16/24 @ 22:[address] Zofia Sheffield MD) Mother COPD (chronic obstructive pulmonary disease) Lung cancer Father COPD (chronic obstructive pulmonary disease) Liver cancer Surgical History History of foot surgery S/P CABG (coronary artery bypass graft) Social History (Updated 12/16/24 @ 22:[address] Zofia Sheffield MD) household members: spouse and family Smoking Status: Former smoker alcohol intake: never substance use type: does not use Physical Exam Const alert and no apparent distress Constitutional Narrative: oriented x2 General Appearance: cooperative HEENT normocephalic and head/scalp atraumatic Eyes PERRL and EOMs intact bilaterally Neck supple and No nodes Resp normal air movement and clear to auscultation bilaterally Cardio regular rate and regular rhythm GI soft to palpation, non-tender and non-distended Extremity General Extremity: Negative for edema Skin no rashes or lesions noted Neuro CN's II-XII intact bilaterally Lab / Micro Data Attestation: I reviewed the patient's lab results. 12/19/24 09:09 12/19/24 09:09 Labs: Laboratory Results - last 24 hr 12/18/24 16:31: POC Glucose 226 H 12/18/24 20:56: POC Glucose 199 H 12/19/24 09:09: WBC 13.3 H, RBC 2.99 L, Hgb 8.5 L, Hct 26.8 L, MCV 89.6, MCH 28.4, MCHC 31.7 L, RDW Std Deviation 49.4 H, RDW Coeff of Rolando 15.1 H, Plt Count 182, MPV 8.9, Immature Gran % (Auto) 0.500, Neut % (Auto) 72.1 H, Lymph % (Auto) 18.3 L, [place] % (Auto) 6.3, Eos % (Auto) 2.3, Baso % (Auto) 0.5, Absolute Neuts (auto) 9.6 H, Absolute Lymphs (auto) 2.43, Nucleated RBC % 0, PT 19.2 H, INR 1.6, Sodium 139, Potassium 3.9, Chloride 108, Carbon Dioxide 19.1 L, Anion Gap 12, BUN 41 H, Creatinine 2.48 H, Estim Creat Clear Calc 25.40 L, Est GFR (MDRD) Non-Af 25 L, BUN/Creatinine Ratio 16.6, Glucose 120 H, Calcium 7.7 Micro: Microbiology 12/16/24 22:00 Blood Culture (Wb) - Anticubital Left Blood Culture - Preliminary ESBL Klebsiella pneumoniae pne 12/16/24 20:20 Urine, Catheterized Urine Culture - Preliminary ESBL Klebsiella pneumoniae pne Rhythm Strip Rhythm Strip: A-fib Rate: 95 Ectopy: None Imaging Radiology Impression Renal Ultrasound 12/18/24 07:00 IMPRESSION: Bilateral renal cysts. No evidence of hydronephrosis. Reading Location: [id number]
--- NOTE | 2024-12-19 11:14 | NURSING ---
pt refusing to allow this RN to administer medications, check blood sugar, or do full assessment. Patient did allow charger tester to get vitals
[2024-12-19] MEDS: Meropenem 500 MG in 0.9% Normal Saline (50mL MB+) 50 ML 100 MG IV ×2 (11:26→21:01)
[2024-12-19 15:14] VITALS: BP 101/53; PULSE 84; RESP 16; TEMP 36.6; O2SAT 95
--- NOTE | 2024-12-19 15:43 | PN.HOSP_ITS ---
Reason for Visit Chief Complaint: Intractable N/V/D. Subjective Subjective No issues overnight. Patient states he did not sleep well and was very argumentative with staff this morning however he was finally agreeable to getting his labs drawn and vitals taken. Objective Data Objective Data Vital Signs: Vital Signs Temp Pulse Resp BP Pulse Ox O2 Del Method O2 Flow Rate 97.9 F 84 16 101/53 L 95 Room Air 2 12/19/24 15:14 12/19/24 15:14 12/19/24 15:14 12/19/24 15:14 12/19/24 15:14 12/19/24 15:14 12/17/24 06:41 Oxygen Flow Rate (L/min) 2 Oxygen Delivery Method Room Air Weight: 93 kg Body Mass Index (BMI) 29.4 Intake & Output: Intake and Output for Last 24 Hours 12/17/24 12/18/24 12/19/24 23:59 23:59 23:59 Intake Total 4169 / 4169 1655 / 1955 650 / 650 Output Total 450 / 450 1650 / 2050 1050 / 1050 Balance 3719 / 3719 5 / -95 -400 / -400 Lab / Micro Data 12/19/24 09:09 12/19/24 09:09 Labs: Laboratory Results - last 24 hr 12/18/24 16:31: POC Glucose 226 H 12/18/24 20:56: POC Glucose 199 H 12/19/24 09:09: WBC 13.3 H, RBC 2.99 L, Hgb 8.5 L, Hct 26.8 L, MCV 89.6, MCH 28.4, MCHC 31.7 L, RDW Std Deviation 49.4 H, RDW Coeff of Rolando 15.1 H, Plt Count 182, MPV 8.9, Immature Gran % (Auto) 0.500, Neut % (Auto) 72.1 H, Lymph % (Auto) 18.3 L, [place] % (Auto) 6.3, Eos % (Auto) 2.3, Baso % (Auto) 0.5, Absolute Neuts (auto) 9.6 H, Absolute Lymphs (auto) 2.43, Nucleated RBC % 0, PT 19.2 H, INR 1.6, Sodium 139, Potassium 3.9, Chloride 108, Carbon Dioxide 19.1 L, Anion Gap 12, BUN 41 H, Creatinine 2.48 H, Estim Creat Clear Calc 25.40 L, Est GFR (MDRD) Non-Af 25 L, BUN/Creatinine Ratio 16.6, Glucose 120 H, Calcium 7.7 Micro: Microbiology 12/16/24 21:45 Blood Culture (Wb) - Anticubital Left Blood Culture - Preliminary No growth in 48 hours. 12/16/24 22:00 Blood Culture (Wb) - Anticubital Left Blood Culture - Preliminary ESBL Klebsiella pneumoniae pne 12/16/24 20:20 Urine, Catheterized Urine Culture - Preliminary ESBL Klebsiella pneumoniae pne Rhythm Strip Rhythm Strip: A-fib Rate: 95 Ectopy: None Physical Exam Narrative G Const alert, oriented x3, no apparent distress and well nourished; Negative for average body habitus or healthy appearing Constitutional Narrative: Overweight, elderly, white male, lying in bed, somewhat argumentative today initially but improved as the day went on, appears comfortable, nontoxic at this time HEENT head/scalp atraumatic and moist oral mucous membranes HEENT Narrative: Poor dentition Resp normal respiratory effort, no retractions, no use of accessory muscles and clear to auscultation bilaterally Auscultation: Negative for crackles, rhonchi or wheezes Cardio regular rate, S1 normal heart sound, S2 normal heart sound, no murmurs, no rub, no gallops and no clicks; Negative for regular rhythm Cardio Narrative: Irregularly irregular rhythm with good rate control GI normal to inspection, nondistended, normoactive bowel sounds, soft to palpation and non-tender Extremity no clubbing, cyanosis or edema Extremity Narrative: 2+ pedal pulses bilaterally, 2+ radial pulses bilaterally Neuro moves all extremities and no focal motor deficits Neuro Narrative: Mild generalized weakness noted proximal greater than distal but no focal deficits Speech: speech normal Psych Psych Narrative: A little bit grouchy this morning Assessment & Plan Assessment/Plan (1) Sepsis: (2) Acute UTI: (3) Leukocytosis: (4) Hypophosphatemia: (5) Nausea vomiting and diarrhea: PLAN: Plan Sepsis secondary to ESBL Klebsiella pneumonia bacteremia/acute urinary tract infection related to chronically indwelling Casas - Patient with chronically indwelling Casas for BPH - Patient treated per sepsis protocol and sepsis now resolved - Blood and urine cultures are both positive for ESBL producing Klebsiella - Antibiotics were transition from Zosyn to meropenem due to ESBL - ID consulted and plan is for PICC at discharge versus IM ertapenem--> discussed with case management Generalized weakness and debility secondary to acute illness - Probably will need to be placed at discharge - Awaiting input from prasanna Hypophosphatemia - Resolved Leukocytosis - Still trending down but now that we have finalized culture results and can tailor antibiotics more appropriately should improve more traumatically Chronic anemia of renal disease - Patient with drop in hemoglobin but no signs of acute bleeding - repeat lab in a.m. BPH with obstruction - Patient with chronic indwelling Casas - Continue Flomax and finasteride - Referral to urology as outpatient CKD stage IV - Baseline renal function it was unclear on admission but seems to be stabilized in the 2.4-2.6 range -2.48 today - Stable - Monitor PAF - Patient chronically in and out of A-fib - Restart home beta-joo - Continue home Coumadin--> INR remains subtherapeutic at 1.6 will give 24 hours of meropenem and recheck tomorrow if still low may need to increase Coumadin dose - Daily INR with goal INR of 2-3 CAD/HPL/essential HTN - Continue home simvastatin - Continue to hold home losartan--> may be able to discontinue or at least hold indefinitely at discharge - Restart home metoprolol Hypothyroidism - Continue home levothyroxine DM-2 -Patient on glipizide as an outpatient - May not be the best ongoing choice due to his renal dysfunction - Glipizide reinitiated and blood sugars overall look okay for the time being we will continue to monitor closely - Plan to discontinue SSI if blood sugars are well-controlled with glipizide History of left fifth digit osteomyelitis - Clinically stable - Ongoing outpatient follow-up as previously recommended DVT prophylaxis - Patient is subtherapeutic INR at 1.6 - Start subcu heparin twice daily until INR is greater than 2.0 CODE STATUS - DNR CCA with no intubation Charges/Coding Visit Charges Inpatient E&M: 55930 Subs Hosp L2
[2024-12-19] MEDS: WARFARIN 1 MG PO (16:02)
[2024-12-19] MEDS: Juven (unflavored) Packet 1 PACKET PO (16:02)
[2024-12-19 19:54] VITALS: BP 97/55; PULSE 95; RESP 16; TEMP 36.5; O2SAT 95
[2024-12-19] MEDS: 0.9% Saline Lock 10 ML Syringe IV (21:01)
[2024-12-19] MEDS: Heparin Injection (Vial) 5,000 UNIT/ML VIAL 5000 UNIT SC (21:02)
[2024-12-19] MEDS: Magnesium Chloride 64 MG Delay Rel.Tablet 128 MG PO (21:02)
[2024-12-20] VITALS (8 sets, daily range): BP systolic 102–111; BP diastolic 47–52; PULSE 80–93; RESP 16; TEMP 36.4–36.6; O2SAT 88–100; BMI 29.3
[2024-12-20 05:42] LABS: Hematocrit 25.5 % (40-54); Hemoglobin 7.9 g/dL (13.0-16.5); Immature Granulocytes Count 0.060 X10^3/uL (0.0-0.0); Mean Corp Hgb Conc 31.0 g/dL (32-36); Mean Corpuscular Volume 90.1 fL (80-94); Mean Platelet Vol. 9.4 fl (6.2-12.0); NRBC Flagged by Analyzer 0 % (0-5); Platelet Count 194 K/mm3 (150-450); RBC Distribution Width CV 15.0 % (11.6-14.6); RBC Distribution Width SD 50.2 fl (35.1-43.9); Red Blood Count 2.83 M/mm3 (4.6-6.2); White Blood Count 11.4 K/mm3 (4.4-11.0)
[2024-12-20 05:51] LABS: Prothrombin Time (Protime)PT. 18.8 SECONDS (11.7-14.9)
[2024-12-20 06:23] LABS: Anion Gap 10 (5-15); BUN 40 mg/dL (4-19); BUN/Creat Ratio 16.4 RATIO (10-20); Calcium,Total 7.7 mg/dL (7.6-11.0); Carbon Dioxide 21.8 mmol/L (21.0-32.0); Chloride 109 mmol/L (98-108); Estimated Creatinine Clearance 26.02 ml/min (50-250); Glucose 125 mg/dL (70-99); Potassium 3.7 mmol/L (3.3-5.1)
--- NOTE | 2024-12-20 07:38 | PCM.PN.HOSP ---
Reason for Visit Chief Complaint: Intractable N/V/D. Objective Data Objective Data Vital Signs: Vital Signs Temp Pulse Resp BP Pulse Ox O2 Del Method O2 Flow Rate 97.6 F L 93 16 108/50 L 93 Room Air 2 12/20/24 03:59 12/20/24 03:59 12/20/24 03:59 12/20/24 03:59 12/20/24 03:59 12/20/24 03:59 12/17/24 06:41 Oxygen Flow Rate (L/min) 2 Oxygen Delivery Method Room Air Weight: 92.9 kg Body Mass Index (BMI) 29.3 Intake & Output: Intake and Output for Last 24 Hours 12/18/24 12/19/24 12/20/24 23:59 23:59 23:59 Intake Total 1655 / 1955 1050 / 1050 200 / 200 Output Total 1650 / 2050 1370 / 1370 650 / 650 Balance 5 / -95 -320 / -320 -450 / -450 Lab / Micro Data 12/20/24 05:21 12/20/24 05:21 Labs: Laboratory Results - last 24 hr 12/19/24 09:09: WBC 13.3 H, RBC 2.99 L, Hgb 8.5 L, Hct 26.8 L, MCV 89.6, MCH 28.4, MCHC 31.7 L, RDW Std Deviation 49.4 H, RDW Coeff of Rolando 15.1 H, Plt Count 182, MPV 8.9, Immature Gran % (Auto) 0.500, Neut % (Auto) 72.1 H, Lymph % (Auto) 18.3 L, [place] % (Auto) 6.3, Eos % (Auto) 2.3, Baso % (Auto) 0.5, Absolute Neuts (auto) 9.6 H, Absolute Lymphs (auto) 2.43, Nucleated RBC % 0, PT 19.2 H, INR 1.6, Sodium 139, Potassium 3.9, Chloride 108, Carbon Dioxide 19.1 L, Anion Gap 12, BUN 41 H, Creatinine 2.48 H, Estim Creat Clear Calc 25.40 L, Est GFR (MDRD) Non-Af 25 L, BUN/Creatinine Ratio 16.6, Glucose 120 H, Calcium 7.7 12/19/24 16:00: POC Glucose 170 H 12/19/24 21:03: POC Glucose 189 H 12/20/24 05:21: WBC 11.4 H, RBC 2.83 L, Hgb 7.9 L, Hct 25.5 L, MCV 90.1, MCH 27.9, MCHC 31.0 L, RDW Std Deviation 50.2 H, RDW Coeff of Rolando 15.0 H, Plt Count 194, MPV 9.4, Immature Gran % (Auto) 0.500, Neut % (Auto) 66.5, Lymph % (Auto) 23.5, [place] % (Auto) 7.0, Eos % (Auto) 2.1, Baso % (Auto) 0.4, Absolute Neuts (auto) 7.5, Absolute Lymphs (auto) 2.67, Nucleated RBC % 0, PT 18.8 H, INR 1.5, Sodium 140, Potassium 3.7, Chloride 109 H, Carbon Dioxide 21.8, Anion Gap 10, BUN 40 H, Creatinine 2.42 H, Estim Creat Clear Calc 26.02 L, Est GFR (MDRD) Non-Af 26 L, BUN/Creatinine Ratio 16.4, Glucose 125 H, Calcium 7.7 12/20/24 06:51: POC Glucose 126 H Micro: Microbiology 12/16/24 21:45 Blood Culture (Wb) - Anticubital Left Blood Culture - Preliminary No growth in 48 hours. 12/16/24 22:00 Blood Culture (Wb) - Anticubital Left Blood Culture - Preliminary ESBL Klebsiella pneumoniae pne 12/16/24 20:20 Urine, Catheterized Urine Culture - Preliminary ESBL Klebsiella pneumoniae pne Rhythm Strip Rhythm Strip: A-fib Rate: 95 Ectopy: None
[2024-12-20] MEDS: Magnesium Chloride 64 MG Delay Rel.Tablet 128 MG PO (09:06)
[2024-12-20] MEDS: 0.9% Saline Lock 10 ML Syringe IV ×4 (09:06→13:36)
[2024-12-20] MEDS: Juven (unflavored) Packet 1 PACKET PO ×2 (09:06→16:18)
[2024-12-20] MEDS: Metoprolol(XL)Succ 50 MG Tablet PO (09:06)
[2024-12-20] MEDS: Meropenem 500 MG in 0.9% Normal Saline (50mL MB+) 50 ML 100 MG IV (09:07)
[2024-12-20] MEDS: Heparin Injection (Vial) 5,000 UNIT/ML VIAL 5000 UNIT SC (09:07)
--- NOTE | 2024-12-20 10:16 | CASEMGMT ---
Addendum entered by Bianca Xiong 12/20/24 15:15: TC to pt son, Lorenzo, he is aware that pt was accepted at [facility]. He is aware pt is on day 24. He states the secondary must've covered the copay from last SNF as he did not receive a bill. He is aware pt will be transferred to [facility] today. He is aware to call insurance for this information if he would like. Addendum entered by Bianca Xiong 12/20/24 15:06: [facility] is able to accept pt. Message sent to Dr. Kasper to see if pt can be switched from IM to IV. Updated hospitalist that pt was accepted. Plan for pt to dc today to [facility] under skilled level of care. Addendum entered by Bianca Xiong 12/20/24 15:04: 1350- Spoke with pt son and choices are 1. [facility] 2. [facility]. [facility]. Message sent to admissions for [facility], pt was declined. Requested dc electrical assistant send referral to [facility]. Addendum entered by Bianca Xiong 12/20/24 11:29: TC to pt son Lorenzo to request top 3 choices, left requesting to select from [facility] link or to call TREV LIANG back and left returned phone number. Original Note: TC to pt son Lorenzo, he states he did not receive a notification of [facility] options for SNF. Sent while on the phone with him and he did receive it. He will select options. He is aware per the hospitalist that his father is medically ready for dc. TREV LIANG to follow for choices.
[2024-12-20 10:47] LABS: Hemoglobin 8.5 g/dL (13.0-16.5)
[2024-12-20] MEDS: Ertapenem Sod 0.5 GM in 0.9% Normal Saline (50mL Bag) 50 ML IV (13:36)
--- NOTE | 2024-12-20 13:37 | PCM.PN.ID ---
Physical Exam Narrative Feeling well, no fever, no abd pain, no n/v/d. Const alert and no apparent distress General Appearance: cooperative Resp normal air movement and clear to auscultation bilaterally Cardio regular rate and regular rhythm GI soft to palpation, non-tender and non-distended Skin no rashes or lesions noted ID ID: Route of nutrition/ use of supplements: [] Nutritional Intake: [] IV Site: [] Schumacher Catheter: [] Assessment & Plan Assessment/Plan (1) Sepsis: PLAN: sepsis due to ESBL K pneumo bacteremia secondary to chronic schumacher - overall much improved. Renal u/s showed no hydro, stone, or abscess. Will change to ertapenem and write for 8 more days IM ertapenem. D/w counseling case manager Will follow, thank you (2) Acute UTI: (3) Bacteremia due to Klebsiella pneumoniae:
--- NOTE | 2024-12-20 14:04 | CASEMGMT ---
Addendum entered by Georgette Berg 12/20/24 15:09: Pt has chosen another snf. Referral to [facility] cancelled. Georgette Berg DC Planning Asst. Original Note: Discharge Planning Referral sent to [facility]. Georgette Berg DC Planning Asst.
--- NOTE | 2024-12-20 15:33 | PCM.TXEXTCAR ---
Diet Diet Order/Speech Therapy: INPATIENT Hospital Diet / Speech Therapy Order(s) 12/17/24 08:25 Diet: Consistent Carb - Calorie Controlled Dietary Modifications:: Cardiac / Heart Healthy How many daily calories?: 2000 calorie Routine Orders/Code Status Suppository Frequency: Daily PRN Routine Lab Work: CBC (1 week) and BMP (1 week) Code Status: DNRCC-A (No ET tube) DC O2, CPAP, BIPAP needs Home O2 Discharge instructions: No Wound(s) coccyx: Wound Type: Pressure Injury r buttocks: Wound Type: Pressure Injury left foot 5th digit: Wound Type: Neuropathic/Diabetic Foot Ulcer Dressing Change: NS moistened Chen left lateral foot towards toes: Wound Type: PI vs. vascular ulcer Left Heel: Wound Type: Scab left lateral foot: Wound Type: Neuropathic/Diabetic Foot Ulcer Dressing Change: dry padded dressing right heel: Wound Type: Pressure Injury Dressing Change: foam dressing cleft: Wound Type: Moisture Associated Skin Damage (MASD) right gluteal crease: Wound Type: pressure/shear injury Dressing Change: foam dressing Suggestions for Active Care Change Position every (hours): 2 Hours to sit in a chair: 3 Times a day to sit in chair: 2 Therapies Physical Therapy: Eval and Treat Occupational Therapy: Eval and Treat Problem/Diagnosis (1) Sepsis: Status: Acute Code(s): A41.9 - Sepsis, unspecified organism (2) Acute UTI: Status: Acute Code(s): N39.0 - Urinary tract infection, site not specified (3) Bacteremia due to Klebsiella pneumoniae: Status: Acute Code(s): R78.81 - Bacteremia; B96.1 - Klebsiella pneumoniae [K. pneumoniae] as the cause of diseases classified elsewhere Allergies/Procedures Done in Hospital Allergies No Known Allergies Allergy (Verified 12/16/24 16:59) Procedures: EKG and - (Chest x-ray/renal ultrasound) Type of Care/Length of Stay Estimated LOS: Convalescent Care Less Than 30 days Type of Care Needed: Skilled Rehab Potential: Good Prognosis: Fair Additional Orders/Day of Discharge Day of Discharge: 12/20/24 Dietary and Speech Recommendations Dietitian Recommendations/Changes: Change diet to 2000 saranya Consistent CHO/ Cardiac to better manage medical conditions Will order Michael bid to help w/ skin healing Monitor need for ONS pending po intake as established and wt trends. Discharge Plan Admission Admit Date/Time: 12/16/24 21:52 Attending Provider: Avelina Leonard Primary Care Provider: James Gardner Consulting Providers: Zofia Sheffield; Con Cornell; Luis Kasper Discharge Orders/Prescriptions Prescriptions: New ertapenem 1 gram recon soln 0.5 g IM DAILY 8 Days Qty: 8 0RF Rx Instructions: Dx: GNR bacteremia. Reconstitute with lidocaine. Weekly bmp, cbc, and LFT while on this. Fax to [phone]. No Action levothyroxine [Euthyrox] 25 mcg tablet 25 mcg PO DAILY warfarin [Jantoven] 1 mg tablet 1 mg PO .unknown Patient Comments: unknown when pt takes med glipizide 5 mg tablet 5 mg PO DAILY finasteride 5 mg tablet 5 mg PO DAILY tamsulosin [Flomax] 0.4 mg capsule 0.4 mg PO DAILY losartan [Cozaar] 50 mg tablet 50 mg PO DAILY simvastatin 40 mg tablet 40 mg PO DAILY metoprolol succinate 50 mg tablet extended release 24 hr 50 mg PO DAILY Referrals / Follow Up: James Gardner MD [Primary Care Provider, Internal Medicine]
--- NOTE | 2024-12-20 15:35 | DS.PCM_ITS ---
Providers Date of Admission: 12/16/24 Date of Discharge: 12/20/24 Primary Care Physician: Dr. James Gardner MD Consultations 12/16/24 22:59 Consult: Tufting Creeler / Pulmonary Medicine Routine Consulting Provider: Intensivists/Pulmonary Med Reason for Consult: Sepsis, UTI, N/V/D EMERGENT Consult: No Notified: Yes Date Notified: 12/17/24 Time Notified: 02:00 Method of Notification: Answering Service Consult: Onc/Wound/hot plate press operator Routine Comment: Reason for Consult:: L 5th toe amp wound 12/19/24 10:57 Consult: Infectious Disease Routine Consulting Provider: Luis Kasper Reason for Consult: ESBL UTI EMERGENT Consult: No Notified: Yes Date Notified: 12/19/24 Time Notified: 10:57 Method of Notification: Verbal Reason For Visit: SEPSIS, UTI, N/V/D Diagnosis Discharge Diagnosis (1) Sepsis: Status: Acute Code(s): A41.9 - Sepsis, unspecified organism (2) Acute UTI: Status: Acute Code(s): N39.0 - Urinary tract infection, site not specified (3) Bacteremia due to Klebsiella pneumoniae: Status: Acute Code(s): R78.81 - Bacteremia; B96.1 - Klebsiella pneumoniae [K. pneumoniae] as the cause of diseases classified elsewhere Medications at Discharge Home Medications finasteride 5 mg tablet 5 mg PO DAILY 12/16/24 glipizide 5 mg tablet 5 mg PO DAILY 12/16/24 levothyroxine 25 mcg tablet (Euthyrox) 25 mcg PO DAILY 12/16/24 losartan 50 mg tablet (Cozaar) 50 mg PO DAILY 12/16/24 simvastatin 40 mg tablet 40 mg PO DAILY 12/16/24 tamsulosin 0.4 mg capsule (Flomax) 0.4 mg PO DAILY 12/16/24 metoprolol succinate 50 mg tablet,extended release 24 hr 50 mg PO DAILY BLOOD PRESSURE 12/18/24 acetaminophen 325 mg tablet 650 mg (2 x 325 mg) PO Q4H PRN PRN Fever, pain 1- 12/22 #0 tabs 12/20/24 albuterol sulfate 2.5 mg/3 mL (0.083 %) solution for nebulization 2.5 mg (3 mL) inhalation Q2H PRN PRN Dyspnea, wheezing #0 mL 12/20/24 arginine 7 gram-glutam 7 gram-CaHMB 1.5 itzm-tgitt-ep-min oral pwd pkt (Michael (with collagen)) 1 packet PO BIDCM #0 ea 12/20/24 ertapenem 1 gram solution for injection 0.5 g IM DAILY 8 days #8 ea 12/20/24 heparin (porcine) 5,000 unit/mL injection solution 5,000 unit subcut Q12 #0 mL 12/20/24 menthol 0.44 %-zinc oxide 20.6 % topical ointment (Calmoseptine) 1 applic topical 4X/DAY #0 grams 12/20/24 warfarin 1 mg tablet (Jantoven) 2 mg (2 x 1 mg) PO .unknown 30 days #1 TAB 12/20/24 Hospital Course Operations None Procedures EKG and - (Renal ultrasound/chest x-ray) Summary of Care Provided Minutes Spent on Discharge: 41 Hospital Course: Mr. Espitia is an 84-year-old white male who presented to the emergency department at [facility] on 03/18/2024 with a chief complaint of intractable nausea/vomiting/diarrhea. It had been going on several days prior to presentation. The patient has a chronic indwelling Casas for obstructive pathology and he is new to the area after moving here recently from [place]. Given his symptoms EMS was called and he is brought to the emergency department for evaluation. Vital signs on presentation showed temperature of 99.5, heart rate 101, blood pressure is 91/65, respiratory was 24 and oxygen saturation was 99% on room air. His blood pressure transiently dropped to 84/35 and was given IV fluid boluses as he met criteria for sepsis and sepsis protocol was initiated. CBC showed a markedly elevated white count of 24.2 with a hemoglobin of 9.3. He had a left shift and lymphopenia. CMP showed hypokalemia potassium of 3.2 and a BUN of 30 with a serum creatinine of 2.48 with an unknown baseline. Chest x-ray showed mild cardiomegaly and mild pulmonary vascular congestion. INR is 1.5 and he is on chronic Coumadin chronically for atrial fibrillation. EKG showed A-fib with rate control and no evidence of ischemia. His lactic acid was 2.6. Urinalysis was consistent with infection. His Casas was changed and he was placed on IV antibiotics and admitted to the intensive care unit. He was diagnosed with gram-negative sepsis. Urine culture resulted positive for ESBL Klebsiella pneumoniae. He initially was on Zosyn and eventually transferred to meropenem and then ertapenem at discharge to complete course. Blood cultures did show positive for ESBL Klebsiella pneumoniae as well. Renal ultrasound was performed with no significant abnormalities. The patient stabilized to the point where he was able to be transferred out of the intensive care unit on 07/18/2024. Given ESBL producing organism infectious disease was consulted for recommendations of antibiotics. They did recommend IM ertapenem at discharge. Patient has ongoing obstructive urological issues with chronic Casas needs so we will have him follow-up with urology after discharge within 1 week. His INR was continuously subtherapeutic despite his home dose so we did increase his dose from 1 to 2 mg daily and he will need daily INRs until this is his INR is between 2 and 3. Renal function did seem to stabilize between 2 and 2.4. He had ongoing generalized weakness and debility and physical and Occupational Therapy evaluated the patient. They did recommend placement. His son agreed and transitional care unit was able to accept the patient. Hemoglobin did drop with IV fluids however patient had no signs of acute bleeding and his hemoglobin was stable. Baseline again is unknown. I suspect he has chronically low hemoglobin secondary to renal disease at baseline. Leukocytosis had almost normalized. He did have intermittent electrolyte abnormalities that were corrected. Patient was able to be discharged home in stable condition. He has history of recent left fifth digit amputation due to osteomyelitis and is following as an outpatient with podiatry. He should follow-up as previously recommended. He should also follow-up with urology as directed on discharge instructions due to chronic obstructive urological pathology and indwelling Casas and his primary care physician within 1 week after discharge from skilled facility. Patient was discharged in stable condition to the transitional care unit on 12/20/2024. 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 PAF CAD Hypertension Hyperlipidemia Hypothyroidism DM-2 Diabetic neuropathy History of left fifth digit osteomyelitis Left heel wound-unstageable Lateral left foot wound-unstageable Physical Exam Const alert, oriented x3, no apparent distress and well nourished; Negative for average body habitus or healthy appearing Constitutional Narrative: Overweight, elderly, white male, sitting up in bed watching television, eating breakfast, appears comfortable, nontoxic, very pleasant General Appearance: cooperative, comfortable, well kempt and well developed Exam Limitations: no limitations Nutritional Appearance: overweight HEENT normocephalic, head/scalp atraumatic and moist oral mucous membranes; Negative for hearing grossly normal bilaterally HEENT Narrative: Mild to moderate hearing loss, Mallampati 2, no thrush Eyes EOMs intact bilaterally; Negative for conjunctivae normal Eyes Narrative: Conjunctiva are mildly pale bilaterally, no scleral icterus Neck supple Neck Narrative: Trachea midline Resp normal respiratory effort, no retractions, no use of accessory muscles and No clear to auscultation bilaterally Resp Narrative: Fine crackles at bases bilaterally Auscultation: crackles; Negative for rhonchi or wheezes Cardio regular rate, S1 normal heart sound, S2 normal heart sound, no murmurs, no rub, no gallops and no clicks; Negative for regular rhythm Cardio Narrative: Irregularly irregular rhythm with good rate control GI normal to inspection, nondistended, normoactive bowel sounds, soft to palpation and non-tender Extremity no clubbing, cyanosis or edema Extremity Narrative: 2+ pedal pulses bilaterally, 2+ radial pulses bilaterally Skin no jaundice, no petechiae and no mottling Skin Narrative: Unstageable pressure wound right foot at heel, unstageable wound at lateral left foot small, amputation site on left foot seems to be healing well Neuro moves all extremities and no focal motor deficits Neuro Narrative: Mild generalized weakness noted proximal greater than distal but no focal deficits Speech: speech normal Psych affect normal Psych Narrative: Pleasant, good eye contact, anxious to leave Weight / BMI Weight Weight: 92.9 kg Body Mass Index (BMI) 29.3 ABG / Lab / Microbiology Data 12/20/24 10:33 12/20/24 05:21 Laboratory: Laboratory Results - last 24 hr 12/19/24 16:00: POC Glucose 170 H 12/19/24 21:03: POC Glucose 189 H 12/20/24 05:21: WBC 11.4 H, RBC 2.83 L, Hgb 7.9 L, Hct 25.5 L, MCV 90.1, MCH 27.9, MCHC 31.0 L, RDW Std Deviation 50.2 H, RDW Coeff of Rolando 15.0 H, Plt Count 194, MPV 9.4, Immature Gran % (Auto) 0.500, Neut % (Auto) 66.5, Lymph % (Auto) 23.5, [place] % (Auto) 7.0, Eos % (Auto) 2.1, Baso % (Auto) 0.4, Absolute Neuts (auto) 7.5, Absolute Lymphs (auto) 2.67, Nucleated RBC % 0, PT 18.8 H, INR 1.5, Sodium 140, Potassium 3.7, Chloride 109 H, Carbon Dioxide 21.8, Anion Gap 10, B UN 40 H, Creatinine 2.42 H, Estim Creat Clear Calc 26.02 L, Est GFR (MDRD) Non- Af 26 L, BUN/Creatinine Ratio 16.4, Glucose 125 H, Calcium 7.7 12/20/24 06:51: POC Glucose 126 H 12/20/24 10:33: Hgb 8.5 L 12/20/24 11:25: POC Glucose 153 H Microbiology: Microbiology 12/16/24 22:00 Blood Culture (Wb) - Anticubital Left Blood Culture - Final ESBL Klebsiella pneumoniae pne 12/16/24 20:20 Urine, Catheterized Urine Culture - Final ESBL Klebsiella pneumoniae pne 12/16/24 21:45 Blood Culture (Wb) - Anticubital Left Blood Culture - Preliminary No growth in 48 hours. D/C Instructions DC O2, CPAP, BIPAP Needs Home O2 Discharge instructions: No Meaningful Use Info Meaningful Use Meaningful Use Diagnoses (Choose all that apply): None applicable Discharge Plan Admission Admit Date/Time: 12/16/24 21:52 Primary Reason for Your Visit: Intractable nausea/vomiting/diarrhea Attending Provider: Avelina Leonard Primary Care Provider: James Gardner Consulting Providers: Zofia Sheffield; Con Cornell; Luis Kasper Instructions Additional Instructions / Restrictions: 1. Follow-up with podiatry for your foot as previously instructed Discharge Orders/Prescriptions Prescriptions: New ertapenem 1 gram recon soln 0.5 g IM DAILY 8 Days Qty: 8 0RF Rx Instructions: Dx: GNR bacteremia. Reconstitute with lidocaine. Weekly bmp, cbc, and LFT while on this. Fax to [phone]. Michael (with collagen) 7-7-1.5 gram Powder In Packet 1 packet PO BIDCM Qty: 0 0RF heparin (porcine) 5,000 unit/mL Solution 5,000 unit subcut Q12 Qty: 0 0RF menthol-zinc oxide [Calmoseptine] 0.44-20.6 % Ointment 1 applic topical 4X/DAY Qty: 0 0RF Protocol: *Topical Application Instructions APPLICATION INSTRUCTIONS: apply to affected region acetaminophen 325 mg Tablet 650 mg PO Q4H PRN PRN (Reason: Fever, pain 1-12/22) Qty: 0 0RF albuterol sulfate 2.5 mg /3 mL (0.083 %) Solution For Nebulization 2.5 mg inhalation Q2H PRN PRN (Reason: Dyspnea, wheezing) Qty: 0 0RF Continued levothyroxine [Euthyrox] 25 mcg tablet 25 mcg PO DAILY glipizide 5 mg tablet 5 mg PO DAILY finasteride 5 mg tablet 5 mg PO DAILY tamsulosin [Flomax] 0.4 mg capsule 0.4 mg PO DAILY losartan [Cozaar] 50 mg tablet 50 mg PO DAILY simvastatin 40 mg tablet 40 mg PO DAILY metoprolol succinate 50 mg tablet extended release 24 hr 50 mg PO DAILY Changed warfarin [Jantoven] 1 mg tablet 2 mg PO .unknown 30 Days Qty: 1 0RF Patient Comments: unknown when pt takes med Referrals / Follow Up: James Gardner MD [Primary Care Provider, Internal Medicine] Vivek Egan MD [Med Staff - Active Staff, Urology] - Within 1 Week Referral Note: Urinary retention with chronic Casas Disposition Disposition (needs filled in before D/C Order can be placed): Shelter Facility Charges/Coding Visit Charges Inpatient E&M: 38229 SNF Disch >30 Min
[2024-12-20] MEDS: WARFARIN 1 MG PO (16:18)
== END 2024-12-20 19:40 | disposition skilled nursing facility (03) | DRG 698 ==
LOC: ED 22:08 → ICU 22:32 → MS3 12-18 12:58
PROVIDERS: Internal Medicine; Internal Medicine Pulmonary Disease; Admitting Provider Family Medicine; Emergency Provider Emergency Medicine; PCP Internal Medicine; Visit Provider Internal Medicine
DX: T83.511A Infection and inflammatory reaction due to indwelling urethral catheter, initial encounter (principal); G93.41 Metabolic encephalopathy; A41.59 Other Gram-negative sepsis; N18.4 Chronic kidney disease, stage 4 (severe); N13.8 Other obstructive and reflux uropathy; Z16.12 Extended spectrum beta lactamase (ESBL) resistance; D63.1 Anemia in chronic kidney disease; L89.620 Pressure ulcer of left heel, unstageable; E83.39 Other disorders of phosphorus metabolism; L89.619 Pressure ulcer of right heel, unspecified stage; Z66 Do not resuscitate; L89.159 Pressure ulcer of sacral region, unspecified stage; L89.319 Pressure ulcer of right buttock, unspecified stage; E11.22 Type 2 diabetes mellitus with diabetic chronic kidney disease; E03.9 Hypothyroidism, unspecified; I12.9 Hypertensive chronic kidney disease with stage 1 through stage 4 chronic kidney disease, or unspecified chronic kidney disease; I48.0 Paroxysmal atrial fibrillation; E86.0 Dehydration; E78.5 Hyperlipidemia, unspecified; I25.10 Atherosclerotic heart disease of native coronary artery without angina pectoris; I95.9 Hypotension, unspecified; Z89.422 Acquired absence of other left toe(s); R11.2 Nausea with vomiting, unspecified; R19.7 Diarrhea, unspecified; E87.6 Hypokalemia; E83.42 Hypomagnesemia; E11.40 Type 2 diabetes mellitus with diabetic neuropathy, unspecified; E11.621 Type 2 diabetes mellitus with foot ulcer; N40.1 Benign prostatic hyperplasia with lower urinary tract symptoms; N39.0 Urinary tract infection, site not specified; R53.81 Other malaise; E66.3 Overweight; R53.1 Weakness; Y84.6 Urinary catheterization as the cause of abnormal reaction of the patient, or of later complication, without mention of misadventure at the time of the procedure; Z95.1 Presence of aortocoronary bypass graft; Z79.01 Long term (current) use of anticoagulants; Z79.84 Long term (current) use of oral hypoglycemic drugs; Z87.39 Personal history of other diseases of the musculoskeletal system and connective tissue; Z79.899 Other long term (current) drug therapy; Z79.890 Hormone replacement therapy; Z87.891 Personal history of nicotine dependence; Z68.29 Body mass index [BMI] 29.0-29.9, adult
CPT/HCPCS: 36415; 71045; 76770; 80048; 80053; 81001; 82962; 83605; 83735; 84100; 85018; 85025; 85610; 87040; 87077; 87086; 87088; 87186; 93005; 94668; 94762; 97116; 97162; 97166; 97530; 97535; 97537; 97802; 99285; J2185; P9612; A4216; J1938; J2405

== ENCOUNTER 2024-12-20 19:50 | Inpatient (IN) | payer MEDICARE, BC, SELFPAY ==
[2024-12-20 19:59] VITALS: BP 110/89; PULSE 108; RESP 18; TEMP 36.1; O2SAT 90; BMI 28.7
--- NOTE | 2024-12-20 20:44 | PCM.HP.STD ---
HPI - General General Date of Admission: 12/20/24 Date of Service: 12/21/24 Chief Complaint: Here for rehabilitation, antibiotics. HPI Narrative ESTEFANY DE LA GARZA, is a 84 Male who presents with followin12/16/2024 [facility] ED nausea, vomiting, diarrhea. nausea, vomiting, diarrhea for several days, patient poor informant. Normal saline 3 liters IV bolus for hypotension. 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 WBC 24.2, UA c/w UTI, urine culture sent, Zosyn IV given for UTI. 12/16/2024 Admit [facility]. Zosyn IV for UTI, urine culture pending. IV fluids for hypotension, dehydration.. Check stool studies for gastroenteritis. Replace potassium, check magnesium. 12/17/2024 Zosyn IV for UTI, urine cultures pending. Treat sepsis/UTI for encephalopathy. Blood and urine cultures growing ESBL Klebsiella Pneumoniae. 12/18/2024 Feeling better, Anxious, Appetite improved. Zosyn IV for complicaed UTI, indwelling schumacher catheter. Sepsis resolved. Replace phosphorous. 12/19/2024 Dr. Kasper recommended Meropenem iv for ESBL K. Pneumoniae bacteremia 2/2 complicated UTI. Renal ultrasound negative. Plan midline IV antibiotics versus IM Ertapenem. 12/19/2024 Did not sleep well, argumentative. PT/OT/CM. 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 12/20/2024 Admit to TCU with debility, here for rehabilitation, strengthening, antibiotics, prior to discharge home with /family. [facility] Medical History (Updated 12/20/24 @ 20:[address] Ashvin Bledsoe MD) CKD (chronic kidney disease), stage IV Former tobacco use BPH (benign prostatic hyperplasia) Diabetes mellitus, type 2 Hypothyroidism HLD (hyperlipidemia) HTN (hypertension) PAF (paroxysmal atrial fibrillation) CAD (coronary artery disease) Chronic anemia Chronic kidney disease Home Medications ?Medication ?Instructions ?Recorded ?Last Taken ?Type finasteride 5 mg tablet 5 mg PO DAILY BPH 12/16/24 12/20/24 09:05 History glipizide 5 mg tablet 5 mg PO DAILY T2DM 12/16/24 12/20/24 20:36 History levothyroxine 25 mcg tablet 25 mcg PO DAILY thyroid 12/16/24 12/20/24 History (Euthyrox) losartan 50 mg tablet (Cozaar) 50 mg PO DAILY HTN 12/16/24 12/20/24 History simvastatin 40 mg tablet 40 mg PO DAILY HLD 12/16/24 12/20/24 History tamsulosin 0.4 mg capsule (Flomax) 0.4 mg PO DAILY BPH 12/16/24 12/20/24 History metoprolol succinate 50 mg 50 mg PO DAILY BLOOD PRESSURE 12/18/24 Unknown History tablet,extended release 24 hr acetaminophen 325 mg tablet 650 mg (2 x 325 mg) PO Q4H PRN PRN 12/20/24 Unknown Rx Fever, pain 1-12/22 #0 tabs albuterol sulfate 2.5 mg/3 mL 2.5 mg (3 mL) inhalation Q2H PRN 12/20/24 Unknown Rx (0.083 %) solution for nebulization PRN Dyspnea, wheezing #0 mL arginine 7 gram-glutam 7 1 packet PO BIDCM dietary 12/20/24 Unknown Rx gram-CaHMB 1.5 [id number] supplement #0 ea oral pwd pkt (Michael (with collagen)) ertapenem 1 gram solution for 0.5 g IM DAILY abx 8 days #8 ea 12/20/24 Unknown Rx injection heparin (porcine) 5,000 unit/mL 5,000 unit subcut Q12 VTE 12/20/24 12/20/24 Rx injection solution prophylaxis #0 mL menthol 0.44 %-zinc oxide 20.6 % 1 applic topical 4X/DAY skin #0 12/20/24 12/20/24 Rx topical ointment (Calmoseptine) grams warfarin 1 mg tablet (Jantoven) 2 mg (2 x 1 mg) PO .unknown 12/20/24 Unknown Rx anticoagulant 30 days #1 TAB Allergy/AdvReac Type Severity Reaction Status Date / Time No Known Allergies Allergy Verified 12/16/24 16:59 Family History Mother COPD (chronic obstructive pulmonary disease) Lung cancer Father COPD (chronic obstructive pulmonary disease) Liver cancer Surgical History History of foot surgery S/P CABG (coronary artery bypass graft) Social History household members: spouse and family Smoking Status: Former smoker alcohol intake: never substance use type: does not use ROS Constitutional Constitutional: Reports weakness; Denies chills, fever(s) or weight gain ENT HEENT: Denies headache(s), nasal congestion or nasal discharge Cardiovascular Cardiovascular: Denies chest pain or palpitations Respiratory/Chest Respiratory/Chest: Denies cough, excessive phlegm production or shortness of breath with exertion Gastrointestinal Gastrointestinal: Denies abdominal pain, nausea or vomiting Genitourinary Genitourinary: Denies dysuria Musculoskeletal Musculoskeletal: Denies joint pain or joint swelling Integumentary Integumentary: Denies rash or wounds Neurologic Neurologic: Denies focal weakness, numbness or tingling Psychiatric Psychiatric: Denies anxiety, auditory hallucinations, depression, homicidal ideation or suicidal ideation Vital Signs Vital Signs Vital Signs: 12/20/24 19:59 Temperature 97.0 F L Temperature Source Temporal Pulse Rate 108 H Respiratory Rate 18 Blood Pressure 110/89 H Blood Pressure Mean 96 Blood Pressure Source Monitor Blood Pressure Position Semi-Fowlers Blood Pressure Location Right Arm Pulse Ox 90 Oxygen Delivery Method Room Air Weight Weight: 90.86 kg Body Mass Index (BMI) 28.7 Physical Exam Const alert General Appearance: cooperative HEENT normocephalic Eyes PERRL and EOMs intact bilaterally Neck supple, no JVD and no carotid bruits Resp normal respiratory effort, normal air movement and clear to auscultation bilaterally Cardio regular rate and regular rhythm GI normal to inspection, nondistended, normoactive bowel sounds, non-tender and non-distended Bladder / Kidney Exam: catheter in place urethral Extremity normal capillary refill General Extremity: Negative for edema Skin no rashes or lesions noted General Skin Exam: no breakdown Psych affect normal Appearance: appropriate Assessment & Plan Assessment/Plan (1) Debility: (2) Sepsis: (3) Bacteremia due to Klebsiella pneumoniae: (4) Complicated UTI (urinary tract infection): (5) Hypophosphatemia: (6) Hypokalemia: (7) Encephalopathy: (8) Chronic indwelling Schumacher catheter: (9) Type 2 diabetes mellitus with hyperglycemia: (10) HTN (hypertension): (11) HLD (hyperlipidemia): (12) Atrial fibrillation: PLAN: Plan 84 year old male with below past medical history significant for chronic indwelling schumacher catheter, hospitalized for sepsis 2/2 complicated UTI, esbl K. pneumoniae bacteremia, encephalopathy, hypokalemia, hypophosphatemia, admitted to TCU with debility, here for rehabilitation, strengthening, prior to dischareg home with /family. Debility - PT/OT. Pain - Tylenol 1000mg q6 prn pain (1-10). Bowel - senna/colace 1 tablet bid, Magnesium citrate 300mL daily prn. Adult immunization - Administer pneumonia vaccine, covid vaccine, flu vaccine as appropriate. DVT prophylaxis - Warfarin. Complicated UTI/esbl K. Pneumoniae bacteremia - Meropenem 1gm iv q12 thru 12/28/2024. Shortness of breath - Albuterol 2.5mg neb q2h prn. Hyperlipidemia - Atorvastatin 40mg qhs. BPH - Finasteride 5mg daily, Tamsulosin 0.4mg daily, indwelling schumacher catheter. Diabetes Mellitus II - Glipizide 5mg daily. Nutrition - Michael 1 packet bidcm. Hypertension - Losartan 50mg daily. Skin irritation - Calmoseptine topical 4x/day. Atrial fibrillation - Metoprolol succinate 50mg daily, warfarin 2mg reed, monitor INR.
[2024-12-20] MEDS: Senna/Docusate Sodium 1 Tablet PO (22:35)
[2024-12-20 22:46] VITALS: PULSE 94; O2SAT 90
[2024-12-21 07:55] LABS: Hematocrit 29.5 % (40-54); Hemoglobin 9.4 g/dL (13.0-16.5); Immature Granulocytes Count 0.060 X10^3/uL (0.0-0.0); Mean Corp Hgb Conc 31.9 g/dL (32-36); Mean Corpuscular Volume 90.2 fL (80-94); Mean Platelet Vol. 9.3 fl (6.2-12.0); NRBC Flagged by Analyzer 0 % (0-5); Platelet Count 239 K/mm3 (150-450); RBC Distribution Width CV 14.9 % (11.6-14.6); RBC Distribution Width SD 49.6 fl (35.1-43.9); Red Blood Count 3.27 M/mm3 (4.6-6.2); White Blood Count 11.6 K/mm3 (4.4-11.0)
[2024-12-21 08:21] LABS: Prothrombin Time (Protime)PT. 18.7 SECONDS (11.7-14.9)
[2024-12-21 08:30] LABS: Anion Gap 10 (5-15); BUN 45 mg/dL (4-19); BUN/Creat Ratio 18.6 RATIO (10-20); Calcium,Total 8.3 mg/dL (7.6-11.0); Carbon Dioxide 24.5 mmol/L (21.0-32.0); Chloride 106 mmol/L (98-108); Estimated Creatinine Clearance 25.55 ml/min (50-250); Glucose 143 mg/dL (70-99); Potassium 4.4 mmol/L (3.3-5.1)
[2024-12-21 09:24] VITALS: BP 110/56; BP 115/56; PULSE 97; RESP 17; TEMP 36.3; O2SAT 97
[2024-12-21] MEDS: Senna/Docusate Sodium 1 Tablet PO ×2 (09:24→21:36)
[2024-12-21] MEDS: Metoprolol(XL)Succ 50 MG Tablet PO (09:24)
[2024-12-21] MEDS: Juven (unflavored) Packet 1 PACKET PO (09:24)
[2024-12-21] MEDS: Meropenem 1 GM in 0.9% Normal Saline (100mL MB+) 100 ML IV ×2 (09:30→21:35)
--- NOTE | 2024-12-21 10:38 | PCM.PN.DRR ---
Documented by User: Meño Craig 12/21/24 11:20 TCU RX Drug Regimen Review Subjective/Objective Subjective/Objective Subjective: TCU Admission. 84 year old male with past medical history significant for chronic indwelling schumacher catheter, hospitalized for sepsis 2/2 complicated UTI, esbl K. pneumoniae bacteremia, encephalopathy, hypokalemia, hypophosphatemia. Admitted to TCU with debility, here for rehabilitation, strengthening, prior to dischareg home with /family. Objective: Allergies No Known Allergies Allergy (Verified 12/16/24 16:59) Current Medications Generic Name Dose Route Start Last Admin Trade Name Freq PRN Reason Stop Dose Admin Acetaminophen 1,000 mg 12/20/24 20:58 Acetaminophen 500 Mg Tablet PO Q6H PRN PRN Pain Score 1-10 Albuterol Sulfate 2.5 mg 12/20/24 20:44 Albuterol 2.5 Mg/3 Ml Vial.Neb. INHALATION Q2H PRN PRN Dyspnea, wheezing Atorvastatin Calcium 40 mg 12/20/24 22:00 12/20/24 22:35 Atorvastatin Calcium 40 Mg Tablet PO 40 mg QHS CRUZ Administration Calamine/Phenol 1 applic 12/20/24 22:00 12/21/24 05:36 Menthol/Lanolin/Calamine/Znox 113 Gm Tube TOPICAL 1 applic 4X/DAY CRUZ Administration Protocol Finasteride 5 mg 12/21/24 10:00 12/21/24 09:24 Finasteride 5 Mg Tablet PO 5 mg DAILY CRUZ Administration Glipizide 5 mg 12/21/24 08:00 12/21/24 09:24 Glipizide 5 Mg Tablet PO 5 mg DAILYCM CRUZ Administration Meropenem 1 gm/ Sodium 100 mls @ 33 mls/hr 12/20/24 22:00 12/21/24 09:30 Chloride IV 12/28/24 23:59 33 mls/hr Q12 CRUZ Administration L-Arginine/L-Glutamine/Calcium HMB 1 packet 12/21/24 08:00 12/21/24 09:24 Michael (Unflavored) Packet PO 1 packet BIDCM CRUZ Administration Levothyroxine Sodium 25 mcg 12/21/24 06:00 12/21/24 05:35 Levothyroxine 25 Mcg Tablet PO 25 mcg DAILY@0600 CRUZ Administration Losartan Potassium 50 mg 12/21/24 10:00 12/21/24 09:24 Losartan Potassium 50 Mg Tablet PO 50 mg DAILY CRUZ Administration Protocol Magnesium Citrate 300 ml 12/20/24 20:27 Magnesium Citrate 300 Ml PO X1 PRN Constipation Metoprolol Succinate 50 mg 12/21/24 10:00 12/21/24 09:24 Metoprolol(Xl)Succ 50 Mg Tablet PO 50 mg DAILY CRUZ Administration Protocol Senna/Docusate Sodium 1 tablet 12/20/24 22:00 12/21/24 09:24 Senna/Docusate Sodium 1 Tablet PO 1 tablet BID CRUZ Administration Sodium Chloride 10 - 40 ml 12/20/24 20:04 0.9% Saline Lock 10 Ml Syringe IV UD PRN SALINE FLUSH Sodium Chloride 250 ml 12/21/24 09:32 0.9% Normal Saline 250 Ml Iv.Soln. IV DAILY PRN flush bag Tamsulosin HCl 0.4 mg 12/21/24 10:00 12/21/24 09:24 Tamsulosin Hcl 0.4 Mg Capsule PO 0.4 mg DAILY CRUZ Administration Tuberculin PPD 0.1 ml 12/28/24 10:00 Tuberculin,Purif.Prot.Deriv. 50 Tu/Ml Vial ID 12/28/24 10:01 X1 ONE Warfarin Sodium 2 mg 12/21/24 17:00 Warfarin (Pbkc) 2 Mg Tablet PO DAILY@1700 [facility] Problem List Atrial fibrillation (Acute) HLD (hyperlipidemia) (Acute) HTN (hypertension) (Chronic) Type 2 diabetes mellitus with hyperglycemia (Acute) Chronic indwelling Schumacher catheter (Chronic) Encephalopathy (Acute) Hypokalemia (Acute) Complicated UTI (urinary tract infection) (Acute) Debility (Acute) Bacteremia due to Klebsiella pneumoniae (Acute) Hypophosphatemia (Acute) Sepsis (Acute) Vital Signs Temp Pulse Resp BP Pulse Ox O2 Del Method 97.0 F L 97 18 110/56 L 90 Room Air 12/20/24 19:59 12/21/24 09:24 12/20/24 19:59 12/21/24 09:24 12/20/24 22:46 12/20/24 22:46 Oxygen Delivery Method Room Air Weight: 90.86 kg Body Mass Index (BMI) 28.7 Sodium 141 mmol/L (133-145) 12/21/24 07:28 Potassium 4.4 mmol/L (3.3-5.1) 12/21/24 07:28 Chloride 106 mmol/L (98-108) 12/21/24 07:28 Carbon Dioxide 24.5 mmol/L (21.0-32.0) 12/21/24 07:28 Anion Gap 10 (5-15) 12/21/24 07:28 BUN 45 mg/dL (4-19) H 12/21/24 07:28 Creatinine 2.44 mg/dL (0.70-1.20) H 12/21/24 07:28 Est GFR (MDRD) Non-Af 25 (>60) L 12/21/24 07:28 BUN/Creatinine Ratio 18.6 RATIO (10-20) 12/21/24 07:28 Glucose 143 mg/dL (70-99) H 12/21/24 07:28 Assessment/Plan: 1. Pain - Tylenol 1000mg PO Q6H PRN pain (1-10). Resident has not used any prn doses at this time. Monitor pain scores before/after prn administration for response, PRN pain medication usage, symptoms of pain/resident distress and ability to participate in therapy. Last LFTs: AST/ALT - 34/16 (12/17/24). Check LFTs if resident develops symptoms of hepatoxicity. Consider monitoring LFTs if patient using > 3 gm/day of acetaminophen for prolonged period. Do not exceed 4000 mg in 24 hours. 2. Bowel - senna/colace 1 tablet PO BID, Magnesium citrate 300mL PO daily PRN constipation. Resident has not used any prn doses at this time. Last document bowel movement: 12/20/24. Monitor for usage of prn medications, abdominal pain, frequency of bowel movements, diarrhea. Recommend holding bowel regimen if resident develops diarrhea. 3. DVT prophylaxis/Atrial fibrillation, Hypertension, Hyperlipidemia - Warfarin 2mg PO daily, Metoprolol succinate 50 mg PO daily, Losartan 50 mg PO daily, Atorvastatin 40 mg PO QHS. BP range since admission = 102/47-110/89, HR range since admission 80-108. BP control appropriate at this time. Monitor blood pressure, heart rate, symptoms of orthostasis, dizziness.? Consider checking orthostatic blood pressure and implementing fall precautions with any indication of orthostatic hypotension. No FLP on file for this patient. Consider FLP to determine efficacy of current lipid-lowering regimen. Monitor for symptoms of VTE (new onset leg pain, swelling, erythema, SOB, chest pain, hypoxia) and bleeding. Monitor INR.? Last INR = 1.5 (12/21/24). Frequency of INR monitoring should depend on INR stability, last warfarin dose change and INR result, and presence of drug interactions. Monitor for symptoms of bleeding (including melena, hemoptysis, hematuria, epistaxis, new-onset headache), hemoglobin (last Hgb = 9.4 (12/21)). Monitor for headache, nausea, diarrhea, new muscle pain/cramping or weakness.? Consider CPK if myopathy/rhabdomyolysis suspected. Monitor AST/ALT (last = 34/16 (12/17/24)) if symptoms suggestive of hepatoxicity. Monitor for bradyarrhythmia, fatigue, sleep disturbance and for new/worsening heart failure symptoms. For diabetic patients, monitor glucose. Monitor serum potassium (last K = 4.4 (12/21/24)), renal function (SCr = 2.44 (12/21/24)). 4. Complicated UTI/esbl K. Pneumoniae bacteremia - Meropenem 1gm IV Q12H thru 12/28/2024. Please monitor for agitation, diarrhea, and headache. 5. Shortness of breath - Albuterol 2.5mg neb Q2H PRN. Resident has not used any prn doses at this time. Please monitor for PRN medication usage, overall symptoms, agitation, tachypnea, palpitations, and tremor. 6. BPH - Finasteride 5mg PO daily, Tamsulosin 0.4mg PO daily, indwelling schumacher catheter. Please monitor for dizziness, rhinitis, blurred vision, and drowsiness. 7. Diabetes Mellitus II - Glipizide 5mg PO daily. Blood glucose since admission: 126-153. Please monitor for sign/symptoms of hypoglycemia, weight gain, and insomnia. BEERS list medication with listed adverse effect of increased risk of CV evens and all-cause mortality. 8. General Wellness - Michael 1 packet PO BIDCM, Calmoseptine topically 4x/day for skin irritation. Please monitor diet and continued/worsening skin irritation. Assessment/Plan for indications treated with psychotropic medications: Resident is not prescribed scheduled or prn psychotropic medications at the time of this drug regimen review. Medical chart and medication regimen reviewed. The following medication irregularities or issues were identified: - Please consider FLP with weekly labs to determine efficacy of current lipid-lowering regimen. Date Date of Note: 12/21/24 Documented by User: Dr. Ashvin Bledsoe MD 12/21/24 11:09 TCU RX Drug Regimen Review Provider Comments Provider responsibility Provider Comments to Recommendations by Pharmacy Agree
[2024-12-21] MEDS: Tuberculin,Purif.prot.deriv. 50 TU/ML Vial 0.1 ML ID (10:49)
--- NOTE | 2024-12-21 13:24 | CASEMGMT ---
Social Work SW met with patient to complete initial assessment. Introduced self and role. Verified/updated contacts. Pt stated son was going to provide copies of advance directives. SW educated to Medicare and copay coverage. Pt's goal is to return home with , son and grandson. - SW phoned son to inquire further about home situation. 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 Then pt had another infection and the catheter was placed, then DC'd from the hospitalization. Son was taking care of mother locally during this time. Pt then moved in with son the beginning of October. Son uncertain of long-term DC plan, but looking for recommendations from IDT. Son also noted the pt's [place] home is not in the best condition. Son explained his son, Tyrel, graduated high school last July and was staying with pt/ to assist them, but recently moved back to [place] to start college and the pt fell after grandson left. SW empathized with son on lifestyle changes, but praised him for caring for his parents. SW assured son IDT will assist with DC recommendations and resources. SW noted that LCAC RADAR OPERATOR/NAVIGATOR is evaluating for cognition tomorrow, and gave the example of pt struggling to recall son and dtr's names. Son replied, well I don't have a sister, so that's a problem. Son confirmed that Leonel is pt's great-granddaughter who lives in [place]. LCAC RADAR OPERATOR/NAVIGATOR will share assessment findings with son at POC meeting next week. Son appreciative. SW educated to Medicare benefit and confirmed pt was admitted in a SNF in [place], thus he has 77 days remaining of the 100 day Medicare benefit. Son stated he does work full-time, but has been working remotely and is considering taking FMLA. SW offered to assist with FMLA paperwork, if elected. Son appreciative. SW will continue to follow for DC planning and support. Charley Wilde TRANSIT MAN SUPERVISOR [employer]
[2024-12-21 16:07] VITALS: O2SAT 90
[2024-12-21] MEDS: Warfarin (PBKC) 2 MG Tablet PO (17:06)
[2024-12-22 05:36] LABS: Cholesterol 104 mg/dL (<=200); Low Density Lipoprotein Calc. 36 mg/dL; Triglycerides 108 mg/dL; Very Low Density Lipoprotein 22 mg/dL (5-40); cholesterol:hdl ratio screen 2.24
[2024-12-22 09:58] VITALS: BP 108/54; PULSE 99; RESP 17; TEMP 36.4; O2SAT 98
[2024-12-22] MEDS: Juven (unflavored) Packet 1 PACKET PO ×2 (09:59→16:56)
[2024-12-22 10:00] VITALS: BP 108/54; PULSE 99
[2024-12-22] MEDS: Metoprolol(XL)Succ 50 MG Tablet PO (10:00)
[2024-12-22] MEDS: Senna/Docusate Sodium 1 Tablet PO ×2 (10:02→21:20)
[2024-12-22] MEDS: 0.9% Saline Lock 10 ML Syringe IV ×2 (10:08→21:30)
[2024-12-22] MEDS: Meropenem 1 GM in 0.9% Normal Saline (100mL MB+) 100 ML IV ×2 (11:02→21:21)
--- NOTE | 2024-12-22 11:08 | NURSING ---
Multiple nurses attempted IV access, difficult stick. Called [facility] for midline placement per order.
[2024-12-22] MEDS: 0.9% Normal Saline 250 ML IV.SOLN. IV ×2 (11:10→21:21)
--- NOTE | 2024-12-22 11:21 | NURSING ---
Investor Relations Associate Note; Activity Asset: Melody Mcarthur is independent in his choice of daily activities. He enjoys the newspaper and wishes to have it daily when avaliable please. His family will visits and bring him items from home if he needs them, he welcomes visits from the therapy dog and has his smartphone as well. He also prefers to be called Jayson. Staff will remind him of weekly activities and respect his right to say no.
--- NOTE | 2024-12-22 15:18 | WOUNDNOTE ---
wound photo: right heel
--- NOTE | 2024-12-22 15:18 | WOUNDNOTE ---
wound photo: left lateral foot
--- NOTE | 2024-12-22 15:49 | NURSING ---
call received from java lead engineer for midline placement going to another dept for placement, then will come to complete this one.
[2024-12-22] MEDS: Warfarin (PBKC) 2 MG Tablet PO (16:56)
[2024-12-22 20:11] VITALS: PULSE 91; RESP 16; O2SAT 95
[2024-12-23 09:29] VITALS: BP 106/50; PULSE 96; RESP 17; TEMP 36.6; O2SAT 90
[2024-12-23] MEDS: Meropenem 1 GM in 0.9% Normal Saline (100mL MB+) 100 ML IV ×2 (09:33→21:29)
[2024-12-23 09:34] VITALS: PULSE 96
[2024-12-23] MEDS: Metoprolol(XL)Succ 50 MG Tablet PO (09:34)
[2024-12-23] MEDS: 0.9% Saline Lock 10 ML Syringe IV ×2 (09:35→21:28)
[2024-12-23] MEDS: Warfarin (PBKC) 2 MG Tablet PO (18:27)
[2024-12-23] MEDS: Senna/Docusate Sodium 1 Tablet PO (21:34)
[2024-12-23] MEDS: MELATONIN 3 MG TABLET PO (21:36)
[2024-12-24 09:09] VITALS: BP 93/45; PULSE 85; RESP 17; TEMP 36.5; O2SAT 94
[2024-12-24] MEDS: Juven (unflavored) Packet 1 PACKET PO ×2 (09:19→17:29)
[2024-12-24] MEDS: Meropenem 1 GM in 0.9% Normal Saline (100mL MB+) 100 ML IV ×2 (09:20→21:53)
[2024-12-24] MEDS: Senna/Docusate Sodium 1 Tablet PO ×2 (09:20→21:52)
[2024-12-24] MEDS: 0.9% Saline Lock 10 ML Syringe IV ×2 (09:21→21:52)
[2024-12-24 10:20] VITALS: BP 97/45; PULSE 65
[2024-12-24] MEDS: Warfarin (PBKC) 2 MG Tablet PO (17:30)
[2024-12-24] MEDS: MELATONIN 3 MG TABLET PO (21:53)
[2024-12-24 22:00] VITALS: PULSE 84; RESP 18; O2SAT 94
[2024-12-25 09:20] LABS: Prothrombin Time (Protime)PT. 18.2 SECONDS (11.7-14.9)
[2024-12-25 09:31] VITALS: BP 104/53; PULSE 95; RESP 16; TEMP 36.6; O2SAT 92
--- NOTE | 2024-12-25 09:31 | NURSING ---
AM vitals at rest SPO2 reading was 83 at room air, applied 2L nasal canula , reading 92%
[2024-12-25 09:34] VITALS: BP 104/53; PULSE 95
[2024-12-25] MEDS: Metoprolol(XL)Succ 50 MG Tablet PO (09:34)
[2024-12-25] MEDS: Senna/Docusate Sodium 1 Tablet PO ×2 (09:38→21:19)
[2024-12-25] MEDS: 0.9% Saline Lock 10 ML Syringe IV ×2 (09:54→21:20)
[2024-12-25] MEDS: 0.9% Normal Saline 250 ML IV.SOLN. IV ×2 (09:55→21:20)
[2024-12-25] MEDS: Meropenem 1 GM in 0.9% Normal Saline (100mL MB+) 100 ML IV ×2 (09:55→21:19)
[2024-12-25 10:00] VITALS: PULSE 92; RESP 18; O2SAT 93
[2024-12-25] MEDS: Warfarin (PBKC) 2 MG Tablet PO (17:42)
[2024-12-25] MEDS: Juven (unflavored) Packet 1 PACKET PO (17:42)
--- NOTE | 2024-12-25 18:31 | NURSING ---
midline dressing changed without complications, pt tolerated well. No blood return noted, flushed well.
[2024-12-25] MEDS: MELATONIN 3 MG TABLET PO (21:19)
[2024-12-26] VITALS (7 sets, daily range): BP systolic 94–101; BP diastolic 42–52; PULSE 79–91; RESP 14–16; TEMP 36.7; O2SAT 96–97; BMI 29.1
--- NOTE | 2024-12-26 00:29 | NURSING ---
Dressing applied to R heel per order 12/25/24 at 2142. 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 Site without drainage, redness, or edema. Pt tolerated procedure well, reports no pain. Denies needs for further assistance at this time. Call light within reach. Bed exit alarm on and functioning.
--- NOTE | 2024-12-26 04:20 | NURSING ---
Addendum entered by Favian Short 12/26/24 07:29: Per ez Ruth to use midline for IV antibiotics. New order for Venous Doppler of L arm. Order clarified via readback. Original Note: Written communication left for Dr. Bledsoe related to pt's L arm near midline appearing to be edematous, reddened, and tightened skin surrounding reddened area. Skin temperature within normal limits. Skin marked to monitor site. Reddened area remained within marked outline. No s/sx of allergic reaction to antibiotics noted at this time. Pt denies pain or discomfort to site.
[2024-12-26] MEDS: Juven (unflavored) Packet 1 PACKET PO ×2 (09:09→16:43)
[2024-12-26] MEDS: Meropenem 1 GM in 0.9% Normal Saline (100mL MB+) 100 ML IV ×2 (09:10→21:38)
[2024-12-26] MEDS: 0.9% Saline Lock 10 ML Syringe IV ×2 (09:11→21:41)
[2024-12-26] MEDS: Metoprolol(XL)Succ 50 MG Tablet PO (09:56)
[2024-12-26] MEDS: Senna/Docusate Sodium 1 Tablet PO ×2 (09:58→21:37)
--- NOTE | 2024-12-26 13:30 | NURSING ---
automotive technician instructor reports negative for clot in LUE.
[2024-12-26] MEDS: Warfarin (PBKC) 2 MG Tablet PO (16:43)
--- NOTE | 2024-12-26 17:14 | NURSING ---
Updated Dr. Bledsoe of patient's trending decreased blood pressures. RN encouraging PO fluids. Orthostatic BPs completed this shift. BP meds were held on 12/24 d/t decreased BP. New order entered by Dr. Bledsoe, Losartan D/C'd.
--- NOTE | 2024-12-26 18:05 | NURSING ---
Updated Dr Bledsoe doppler of Tristan ross for DVT.
[2024-12-26] MEDS: MELATONIN 3 MG TABLET PO (21:37)
[2024-12-26] MEDS: 0.9% Normal Saline 250 ML IV.SOLN. IV (21:40)
--- NOTE | 2024-12-27 08:38 | NURSING ---
Elderly Companion Note; MDS for 12/27/2024 Complete
--- NOTE | 2024-12-27 09:03 | CASEMGMT ---
Social Work IDT met with patient, and son for care plan meeting. Discussed patient's progress in PT/OT/ST/SN/RDN. Pt has wounds and a new schumacher. Educated to Medicare benefit. Provided pt/family with written communication of insurance process and copay coverage during stay. IDT explained pt is x2 assist, though improving from admission, IDT recommending alternative DC plan with / care. Pt was getting overwhelmed with information and son did not give much feedback or ask questions. SW offered to contact son tomorrow to discuss specifics for DC planning and pt agreed. SW will continue to follow. Charley Wilde YOGHURT MAKER SHEET SORTER
[2024-12-27] MEDS: 0.9% Saline Lock 10 ML Syringe IV ×2 (09:50→21:31)
[2024-12-27] MEDS: Senna/Docusate Sodium 1 Tablet PO ×2 (09:53→21:30)
[2024-12-27] MEDS: Meropenem 1 GM in 0.9% Normal Saline (100mL MB+) 100 ML IV ×2 (10:37→21:31)
[2024-12-27 10:46] VITALS: PULSE 88
[2024-12-27] MEDS: Metoprolol(XL)Succ 50 MG Tablet PO (10:46)
[2024-12-27 12:01] VITALS: O2SAT 88
--- NOTE | 2024-12-27 15:52 | WOUNDNOTE ---
wound photo: left lateral foot
--- NOTE | 2024-12-27 15:53 | WOUNDNOTE ---
wound photo: right heel
--- NOTE | 2024-12-27 15:53 | WOUNDNOTE ---
wound photo: buttocks
[2024-12-27 16:00] VITALS: BP 93/44; PULSE 88; RESP 16; TEMP 36.4; O2SAT 95
[2024-12-27] MEDS: Warfarin (PBKC) 2 MG Tablet PO (17:43)
[2024-12-27] MEDS: MELATONIN 3 MG TABLET PO (21:30)
[2024-12-27] MEDS: 0.9% Normal Saline 250 ML IV.SOLN. IV (21:31)
[2024-12-28 06:11] LABS: Hematocrit 27.6 % (40-54); Hemoglobin 8.5 g/dL (13.0-16.5); Immature Granulocytes Count 0.050 X10^3/uL (0.0-0.0); Mean Corp Hgb Conc 30.8 g/dL (32-36); Mean Corpuscular Volume 91.4 fL (80-94); Mean Platelet Vol. 9.2 fl (6.2-12.0); NRBC Flagged by Analyzer 0 % (0-5); Platelet Count 283 K/mm3 (150-450); RBC Distribution Width CV 15.7 % (11.6-14.6); RBC Distribution Width SD 52.1 fl (35.1-43.9); Red Blood Count 3.02 M/mm3 (4.6-6.2); White Blood Count 12.0 K/mm3 (4.4-11.0)
[2024-12-28 06:47] LABS: Prothrombin Time (Protime)PT. 18.3 SECONDS (11.7-14.9)
[2024-12-28 07:27] LABS: Anion Gap 10 (5-15); BUN 71 mg/dL (4-19); BUN/Creat Ratio 44.9 RATIO (10-20); Calcium,Total 8.1 mg/dL (7.6-11.0); Carbon Dioxide 22.5 mmol/L (21.0-32.0); Chloride 107 mmol/L (98-108); Estimated Creatinine Clearance 39.49 ml/min (50-250); Glucose 76 mg/dL (70-99); Potassium 4.1 mmol/L (3.3-5.1)
[2024-12-28] MEDS: Senna/Docusate Sodium 1 Tablet PO ×2 (09:26→21:05)
[2024-12-28 09:27] VITALS: PULSE 72
[2024-12-28] MEDS: Metoprolol(XL)Succ 50 MG Tablet PO (09:27)
[2024-12-28 09:30] VITALS: BP 97/65; PULSE 72; RESP 18; TEMP 36.6; O2SAT 95
[2024-12-28] MEDS: Tuberculin,Purif.prot.deriv. 50 TU/ML Vial 0.1 ML ID (09:36)
[2024-12-28] MEDS: Meropenem 1 GM in 0.9% Normal Saline (100mL MB+) 100 ML IV ×2 (11:29→21:06)
[2024-12-28 15:16] VITALS: O2SAT 3
[2024-12-28] MEDS: Warfarin (PBKC) 2 MG Tablet PO (16:59)
[2024-12-28 21:00] VITALS: PULSE 73; RESP 16; O2SAT 93
[2024-12-28] MEDS: 0.9% Saline Lock 10 ML Syringe IV (21:02)
[2024-12-28] MEDS: MELATONIN 3 MG TABLET PO (21:08)
[2024-12-29] MEDS: 0.9% Saline Lock 10 ML Syringe IV (00:58)
--- NOTE | 2024-12-29 00:58 | NURSING ---
LUE midline removed and DSD applied at this time as ordered per facility policy. Cath length observed at 16cm upon removal. Patient tolerated well. No distress observed or reported. Call light in reach.
[2024-12-29 08:10] LABS: Hematocrit 28.2 % (40-54); Hemoglobin 8.7 g/dL (13.0-16.5)
[2024-12-29 09:24] VITALS: BP 107/61; PULSE 92; RESP 17; TEMP 36.5; O2SAT 98
[2024-12-29 09:28] VITALS: BP 107/61; PULSE 92
[2024-12-29] MEDS: Metoprolol(XL)Succ 50 MG Tablet PO (09:28)
[2024-12-29] MEDS: Senna/Docusate Sodium 1 Tablet PO ×2 (09:31→20:37)
[2024-12-29 10:00] VITALS: PULSE 84; RESP 17; O2SAT 98
--- NOTE | 2024-12-29 10:21 | CASEMGMT ---
Social Work SW phoned son to discuss POC meeting information. Son stated he is still processing the information, but these were the same recommendations when pt was discharged from hospital in [place]. SW offered to assist with resources. During phone call, son paused speaking with this worker to assist in redirecting mother, who was agitated, yelling, and accusatory of son taking the phone call. Son apologized and explained mother has good days and bad days. SW provided support and suggested mother may be best suited for a memory care unit to allow that unit be more specifically trained to assist with the bad days. SW educated to having pt and placed together or on the same campus - [facility] and SNF. Son stated he and his GF have a tour scheduled with [facility] this weekend. SW offered to send referral for [facility] to better speak to family during tour on if they can meet the pt's needs. Explained pt has wounds and AL has regulations with the types of wounds they can accept. Son agreed to the referral. SW offered to send additional [facility] and SNF list for review. Son agreed and provided email address. SW sent AL list to email, and sent list of SNFs in preferred geographical area, INN with pt?s insurance, including quality and resource data via [employer] Guide link. NILSA will continue to follow. Charley Wilde MSW COMMUNICATIONS SUPERVISOR
[2024-12-29 10:47] VITALS: O2SAT 96
--- NOTE | 2024-12-29 15:02 | CASEMGMT ---
Social Work Handoff from FIELD RADIO OPERATOR Charley Rne regarding referral to [facility]. Via secure email to admission coordinator, Juan Bullock, send referral information including demographics, H&P, therapy evals, lat 24 hours of med/vitals/therapy notes, adn wound notes. Plan: SW following. Possible Assisted living- family looking at [facility]. -QI Anna
[2024-12-29] MEDS: Warfarin (PBKC) 2 MG Tablet PO (18:34)
[2024-12-29 20:30] VITALS: PULSE 84; O2SAT 95
[2024-12-29] MEDS: MELATONIN 3 MG TABLET PO (20:34)
[2024-12-30 07:42] VITALS: O2SAT 95
[2024-12-30] MEDS: Senna/Docusate Sodium 1 Tablet PO ×2 (08:19→21:45)
[2024-12-30 08:22] VITALS: PULSE 84
[2024-12-30] MEDS: Metoprolol(XL)Succ 50 MG Tablet PO (08:22)
[2024-12-30 09:49] VITALS: O2SAT 95
[2024-12-30 15:29] VITALS: BP 107/61; PULSE 84; RESP 16; TEMP 36.4; O2SAT 93
[2024-12-30] MEDS: Warfarin (PBKC) 2 MG Tablet PO (16:20)
[2024-12-30 20:00] VITALS: PULSE 77; O2SAT 99
[2024-12-30 21:43] VITALS: O2SAT 99
[2024-12-30] MEDS: MELATONIN 3 MG TABLET PO (21:47)
[2024-12-31 04:47] VITALS: PULSE 74; O2SAT 98
[2024-12-31 07:05] VITALS: O2SAT 94
[2024-12-31 07:58] VITALS: PULSE 82
[2024-12-31] MEDS: Metoprolol(XL)Succ 50 MG Tablet PO (07:58)
[2024-12-31] MEDS: Senna/Docusate Sodium 1 Tablet PO ×2 (07:58→20:38)
[2024-12-31 13:48] VITALS: BP 104/62; PULSE 81; RESP 16; TEMP 36.3; O2SAT 95
[2024-12-31] MEDS: Warfarin (PBKC) 2 MG Tablet PO (16:27)
[2024-12-31] MEDS: MELATONIN 3 MG TABLET PO (20:38)
[2024-12-31 22:16] VITALS: PULSE 66; O2SAT 98
[2025-01-01 07:39] VITALS: BP 112/60; PULSE 83; RESP 16; TEMP 36.4; O2SAT 98
[2025-01-01 07:40] VITALS: PULSE 83
[2025-01-01] MEDS: Metoprolol(XL)Succ 50 MG Tablet PO (07:40)
[2025-01-01] MEDS: Senna/Docusate Sodium 1 Tablet PO ×2 (07:43→20:41)
[2025-01-01 08:19] LABS: Prothrombin Time (Protime)PT. 19.8 SECONDS (11.7-14.9)
--- NOTE | 2025-01-01 10:32 | NURSING ---
Offered covid vaccine, VIS provided. Resident declines.
[2025-01-01 10:44] VITALS: O2SAT 94
--- NOTE | 2025-01-01 14:12 | NURSING ---
Spoke with Dr. Luis Baron office in [place] regarding vaccine history. They confirm patient had Prevnar 20 on 07/31/24. Added to vaccine HX in [place].
--- NOTE | 2025-01-01 14:54 | MDS.RN ---
Information for the MDS was obtained from review of the clinical record, interview of resident, staff, and direct observation of resident?s care.
--- NOTE | 2025-01-01 15:44 | WOUNDNOTE ---
wound photo: right heel
--- NOTE | 2025-01-01 15:50 | WOUNDNOTE ---
wound photo: left lateral foot
[2025-01-01] MEDS: Warfarin (PBKC) 2 MG Tablet PO (16:26)
[2025-01-01] MEDS: MELATONIN 3 MG TABLET PO (20:40)
[2025-01-01 23:00] VITALS: PULSE 82; RESP 16; O2SAT 97
[2025-01-02 09:09] VITALS: BP 91/47; PULSE 79; RESP 18; TEMP 36.4; O2SAT 96
[2025-01-02] MEDS: Senna/Docusate Sodium 1 Tablet PO ×2 (09:14→22:30)
[2025-01-02 15:37] VITALS: BMI 29.1
--- NOTE | 2025-01-02 15:38 | WOUNDNOTE ---
wound photo: right lower gluteal crease
--- NOTE | 2025-01-02 15:42 | WOUNDNOTE ---
wound photo: barvo cleft/buttocks
--- NOTE | 2025-01-02 16:23 | CASEMGMT ---
Social Work SW phoned son to follow up on [facility] referral. Son stated he/family have not made any decisions at this time. Son stated he spoke with the pt about DC plans and pt voiced wanting to DC home. Son stated he is unsure of the plan. SW explained although pt should be involved in DC planning for preferences, reminded son that pt's cognitive impairment is moderate and is lacking the ability to weigh options with decision making and big picture thinking. SW encouraged son to consider caring for pt and at home. Son expressed understanding. SW explained IDT is ready to set a date as pt has met max potential. Son agreed having a deadline would be helpful for decision making. SW offered DC 01/10 and son agreed. SW to assist with DC plans. Plan: DC 01/10, destination and needs ELAYNE Wilde HYDRODYNAMICIST THERMOMETER PRODUCTION WORKER
[2025-01-02] MEDS: Warfarin (PBKC) 2.5 MG Tablet PO (17:13)
[2025-01-02] MEDS: MELATONIN 3 MG TABLET PO (22:29)
[2025-01-03 10:32] VITALS: BP 109/59; PULSE 89; RESP 17; TEMP 36.4; O2SAT 94
[2025-01-03 10:34] VITALS: BP 109/59; PULSE 89
[2025-01-03] MEDS: Metoprolol(XL)Succ 50 MG Tablet PO (10:34)
[2025-01-03] MEDS: BACITRACIN 15 GM Tube 1 APPLIC TOPICAL ×2 (10:37→22:39)
--- NOTE | 2025-01-03 11:49 | NURSING ---
dressing changes completed after resident ADLs, tolerated well.
[2025-01-03] MEDS: Warfarin (PBKC) 2.5 MG Tablet PO (19:06)
[2025-01-03] MEDS: Senna/Docusate Sodium 1 Tablet PO (22:40)
[2025-01-03] MEDS: MELATONIN 3 MG TABLET PO (22:41)
[2025-01-03 22:57] VITALS: PULSE 85; O2SAT 98
[2025-01-03 23:06] LABS: Mucous, Urine 0 SEEN /hpf (<or=2+)
[2025-01-03 23:18] LABS: Color, Urine Yellow (Yellow); Glucose, Dipstick Normal (Normal); Ketone-Dipstick Negative (Negative); Leukocyte Esterase-Dipstick 100 /ul (Negative); Nitrite-Dipstick Negative (Negative); Occult Blood-Urine 10 /ul (Negative); Protein-Dipstick 30 mg/dl (Negative); Specific Gravity, Urine 1.010 (1.002-1.030); Urine Bilirubin Dipstick Negative (Negative)
[2025-01-03 23:36] LABS: Red Blood Cells-Urine 0-5 SEEN /hpf (0-5); Squamous Epithelial Cells - UA 0-5 SEEN /hpf (0-5)
[2025-01-04 07:05] LABS: Hematocrit 26.9 % (40-54); Hemoglobin 8.4 g/dL (13.0-16.5); Immature Granulocytes Count 0.020 X10^3/uL (0.0-0.0); Mean Corp Hgb Conc 31.2 g/dL (32-36); Mean Corpuscular Volume 89.7 fL (80-94); Mean Platelet Vol. 9.1 fl (6.2-12.0); NRBC Flagged by Analyzer 0 % (0-5); Platelet Count 191 K/mm3 (150-450); RBC Distribution Width CV 15.4 % (11.6-14.6); RBC Distribution Width SD 50.0 fl (35.1-43.9); Red Blood Count 3.00 M/mm3 (4.6-6.2); White Blood Count 7.1 K/mm3 (4.4-11.0)
[2025-01-04 07:51] LABS: Anion Gap 8 (5-15); BUN 49 mg/dL (4-19); BUN/Creat Ratio 34.7 RATIO (10-20); Calcium,Total 8.0 mg/dL (7.6-11.0); Carbon Dioxide 24.2 mmol/L (21.0-32.0); Chloride 109 mmol/L (98-108); Estimated Creatinine Clearance 44.53 ml/min (50-250); Glucose 85 mg/dL (70-99); Potassium 4.0 mmol/L (3.3-5.1)
[2025-01-04 07:59] LABS: Prothrombin Time (Protime)PT. 18.7 SECONDS (11.7-14.9)
[2025-01-04] MEDS: BACITRACIN 15 GM Tube 1 APPLIC TOPICAL ×2 (09:33→21:48)
[2025-01-04 09:34] VITALS: PULSE 87
[2025-01-04] MEDS: Metoprolol(XL)Succ 50 MG Tablet PO (09:34)
[2025-01-04] MEDS: Senna/Docusate Sodium 1 Tablet PO ×2 (09:38→21:48)
[2025-01-04 11:01] VITALS: BP 99/57; PULSE 87; RESP 16; TEMP 36.3; O2SAT 92
[2025-01-04] MEDS: Warfarin (PBKC) 2.5 MG Tablet PO (17:02)
[2025-01-04 20:00] VITALS: PULSE 60; O2SAT 94
[2025-01-04 21:00] VITALS: PULSE 60; O2SAT 94
[2025-01-04] MEDS: MELATONIN 3 MG TABLET PO (21:48)
[2025-01-05 05:54] VITALS: PULSE 86; O2SAT 94
[2025-01-05 07:37] VITALS: O2SAT 97
[2025-01-05 09:08] VITALS: BP 102/56; PULSE 100; RESP 17; TEMP 36.3; O2SAT 95
[2025-01-05 09:09] VITALS: BP 102/56; PULSE 100
[2025-01-05] MEDS: Metoprolol(XL)Succ 50 MG Tablet PO (09:09)
[2025-01-05] MEDS: BACITRACIN 15 GM Tube 1 APPLIC TOPICAL ×2 (09:11→21:43)
[2025-01-05] MEDS: Warfarin (PBKC) 2.5 MG Tablet PO (17:45)
[2025-01-05] MEDS: Senna/Docusate Sodium 1 Tablet PO (21:43)
[2025-01-05] MEDS: MELATONIN 3 MG TABLET PO (21:43)
[2025-01-06 09:11] VITALS: BP 102/57; PULSE 92; RESP 16; TEMP 36.8; O2SAT 90
[2025-01-06] MEDS: BACITRACIN 15 GM Tube 1 APPLIC TOPICAL ×2 (09:14→21:00)
[2025-01-06 09:15] VITALS: PULSE 92
[2025-01-06] MEDS: Metoprolol(XL)Succ 50 MG Tablet PO (09:15)
[2025-01-06] MEDS: Warfarin (PBKC) 2.5 MG Tablet PO (17:27)
[2025-01-06 20:10] VITALS: PULSE 47; RESP 16; O2SAT 94
[2025-01-06] MEDS: MELATONIN 3 MG TABLET PO (21:00)
[2025-01-07 09:23] VITALS: BP 106/55; PULSE 79; RESP 18; TEMP 36.3; O2SAT 97
[2025-01-07] MEDS: BACITRACIN 15 GM Tube 1 APPLIC TOPICAL ×2 (09:25→20:54)
[2025-01-07 09:26] VITALS: PULSE 79
[2025-01-07] MEDS: Metoprolol(XL)Succ 50 MG Tablet PO (09:26)
--- NOTE | 2025-01-07 15:38 | NURSING ---
Results received for culture of drainage from penis. Notified Dr. Bledsoe, new order to consult Dr. Kasper for infection.
[2025-01-07] MEDS: Warfarin (PBKC) 2.5 MG Tablet PO (16:53)
[2025-01-07 20:08] VITALS: PULSE 98; O2SAT 99
[2025-01-07] MEDS: Senna/Docusate Sodium 1 Tablet PO (20:54)
[2025-01-07] MEDS: MELATONIN 3 MG TABLET PO (20:56)
[2025-01-08 06:49] LABS: Prothrombin Time (Protime)PT. 18.5 SECONDS (11.7-14.9)
--- NOTE | 2025-01-08 09:31 | CASEMGMT ---
Addendum entered by Charley Wilde 01/08/25 12:47: Received HHC preferences [facility]. [facility], [facility], [facility]. [facility], [facility]. Original Note: Social Work SW phoned son to follow up on DC plans. Son stated the pt wants to come home and son will take pt home and provide care. SW offered skilled HHC. Son agreed. SW provided list of skilled HHC agencies within geographical area, INN with insurance, that include quality and resource data via [facility] guide link via email. Son to select preferences and notify this worker. Son denied DME needs. Plan: DC home with family 01/10, HHC PT/OT/SN/[place]/NILSA Wilde CHINESE HERBALIST SOCIAL WORK THERAPIST
[2025-01-08 09:52] VITALS: BP 114/53; PULSE 88; RESP 16; TEMP 35.8; O2SAT 92
[2025-01-08 09:57] VITALS: PULSE 88
[2025-01-08] MEDS: Metoprolol(XL)Succ 50 MG Tablet PO (09:57)
[2025-01-08] MEDS: BACITRACIN 15 GM Tube 1 APPLIC TOPICAL ×2 (09:58→22:20)
[2025-01-08] MEDS: Senna/Docusate Sodium 1 Tablet PO (10:00)
[2025-01-08 10:18] VITALS: PULSE 88; RESP 16; O2SAT 92
--- NOTE | 2025-01-08 13:02 | PCM.CONS.GEN ---
Assessment & Plan Assessment/Plan (1) Chronic indwelling Schumacher catheter: PLAN: Erosion and some purulence at schumacher catheter insertion. Wound cx with ESBL k pneumo, MRSA, morganella, and proteus. Will consult urology and start vanc/luis. D/w nursing. Will follow, thank you HPI Consult Data Date of Consult: 01/08/25 HPI Narrative Reason for Consultation: infection at schumacher insertion site HPI Narrative: ESTEFANY DE LA GARZA, is a 84 M who has h/o CAD, BPH, chronic schumacher, presented to [facility] with esbl K pneumo bacteremia from urinary source. Treated with meropenem. Transferred to TCU, now with some purulent drainage and erosion at schumacher site at tip of penis. Denies fever, chills, pain, n/v/d. Full ROS performed and neg except as noted above. [facility] Medical History History of atrial fibrillation Chronic anticoagulation History of diabetes mellitus CKD (chronic kidney disease), stage IV Former tobacco use BPH (benign prostatic hyperplasia) Diabetes mellitus, type 2 Hypothyroidism HLD (hyperlipidemia) HTN (hypertension) PAF (paroxysmal atrial fibrillation) CAD (coronary artery disease) Chronic anemia Chronic kidney disease Home Medications ?Medication ?Instructions ?Recorded ?Last Taken ?Type finasteride 5 mg tablet 5 mg PO DAILY BPH 12/16/24 12/20/24 09:05 History glipizide 5 mg tablet 5 mg PO DAILY T2DM 12/16/24 12/20/24 20:36 History levothyroxine 25 mcg tablet 25 mcg PO DAILY thyroid 12/16/24 12/20/24 History (Euthyrox) losartan 50 mg tablet (Cozaar) 50 mg PO DAILY HTN 12/16/24 12/20/24 History simvastatin 40 mg tablet 40 mg PO DAILY HLD 12/16/24 12/20/24 History tamsulosin 0.4 mg capsule (Flomax) 0.4 mg PO DAILY BPH 12/16/24 12/20/24 History metoprolol succinate 50 mg 50 mg PO DAILY BLOOD PRESSURE 12/18/24 Unknown History tablet,extended release 24 hr acetaminophen 325 mg tablet 650 mg (2 x 325 mg) PO Q4H PRN PRN 12/20/24 Unknown Rx Fever, pain 1-12/22 #0 tabs albuterol sulfate 2.5 mg/3 mL 2.5 mg (3 mL) inhalation Q2H PRN 12/20/24 Unknown Rx (0.083 %) solution for nebulization PRN Dyspnea, wheezing #0 mL arginine 7 gram-glutam 7 1 packet PO BIDCM dietary 12/20/24 Unknown Rx gram-CaHMB 1.5 [id number] supplement #0 ea oral pwd pkt (Michael (with collagen)) ertapenem 1 gram solution for 0.5 g IM DAILY abx 8 days #8 ea 12/20/24 Unknown Rx injection heparin (porcine) 5,000 unit/mL 5,000 unit subcut Q12 VTE 12/20/24 12/20/24 Rx injection solution prophylaxis #0 mL menthol 0.44 %-zinc oxide 20.6 % 1 applic topical 4X/DAY skin #0 12/20/24 12/20/24 Rx topical ointment (Calmoseptine) grams warfarin 1 mg tablet (Jantoven) 2 mg (2 x 1 mg) PO .unknown 12/20/24 Unknown Rx anticoagulant 30 days #1 TAB Allergy/AdvReac Type Severity Reaction Status Date / Time No Known Allergies Allergy Verified 12/16/24 16:59 Family History Mother COPD (chronic obstructive pulmonary disease) Lung cancer Father COPD (chronic obstructive pulmonary disease) Liver cancer Surgical History History of foot surgery S/P CABG (coronary artery bypass graft) Social History household members: spouse and family Smoking Status: Former smoker alcohol intake: never substance use type: does not use Physical Exam Const alert and no apparent distress General Appearance: cooperative HEENT normocephalic and head/scalp atraumatic Eyes PERRL and EOMs intact bilaterally Neck supple and No nodes Resp normal air movement and clear to auscultation bilaterally Cardio regular rate and regular rhythm GI soft to palpation, non-tender and non-distended Extremity General Extremity: Negative for edema Skin Skin Narrative: erosion at schumacher catheter site at tip of penis with some purulence Neuro CN's II-XII intact bilaterally Lab / Micro Data Attestation: I reviewed the patient's lab results. 01/04/25 06:25 01/04/25 06:25 Labs: Laboratory Results - last 24 hr 01/08/25 05:49: POC Glucose 101 01/08/25 06:29: PT 18.5 H, INR 1.5 Micro: Microbiology 01/06/25 22:47 Interface Orders Gram Stain - Final 01/06/25 22:47 Interface Orders Body Fluid Culture - Preliminary Gram negative juli GNR lactose faucet polisher 01/06/25 22:47 Interface Orders Anaerobic Culture - Preliminary 01/04/25 08:30 Catheter Insertion Site Gram Stain - Final 01/04/25 08:30 Catheter Insertion Site Wound Culture - Final ESBL Klebsiella pneumoniae pne Morganella morganii sp morgani Meth. resistant Staph. aureus Proteus mirabilis
--- NOTE | 2025-01-08 13:29 | PCM.RX.CS ---
Consult Antibiotic Management Pharmacy has been consulted to manage selected antibiotic: Vancomycin Type of Intervention Type of Consult: New start Suspected Infection Suspected Infection: Other Labs Labs: Sodium 141 mmol/L (133-145) 01/04/25 06:25 Potassium 4.0 mmol/L (3.3-5.1) 01/04/25 06:25 Chloride 109 mmol/L (98-108) H 01/04/25 06:25 Carbon Dioxide 24.2 mmol/L (21.0-32.0) 01/04/25 06:25 Anion Gap 8 (5-15) 01/04/25 06:25 BUN 49 mg/dL (4-19) H 01/04/25 06:25 Creatinine 1.41 mg/dL (0.70-1.20) H 01/04/25 06:25 Est GFR (MDRD) Non-Af 49 (>60) L 01/04/25 06:25 BUN/Creatinine Ratio 34.7 RATIO (10-20) H 01/04/25 06:25 Glucose 85 mg/dL (70-99) 01/04/25 06:25 Microbiology Microbiology: Microbiology 01/06/25 22:47 Interface Orders Gram Stain - Final 01/06/25 22:47 Interface Orders Body Fluid Culture - Preliminary Gram negative juli GNR lactose camp manager 01/06/25 22:47 Interface Orders Anaerobic Culture - Preliminary 01/04/25 08:30 Catheter Insertion Site Gram Stain - Final 01/04/25 08:30 Catheter Insertion Site Wound Culture - Final ESBL Klebsiella pneumoniae pne Morganella morganii sp morgani Meth. resistant Staph. aureus Proteus mirabilis 01/03/25 10:39 Urine Catheter - Catheter Urine Culture - Final Culture exhibits no growth. 01/01/25 05:45 Nasal Secretion SARS-CoV-2 Antigen (Rapid) - Final 12/25/24 05:30 Nasal Secretion SARS-CoV-2 Antigen (Rapid) - Final Dosing Weight Weight used for dosin.7 kg Estimated Creatinine Clearance Estimated Creatinine Clearance: 44.5 Goal Trough Goal Trough: 15-20 mcg/mL Pharmacy Plan for Drug Dosing Pharmacy Plan for Drug Dosing: Pharmacy Service will continue to monitor and adjust dosing as required. NEW START IV VANCOMYCIN Consulting Physician: Dr. Kasper Indication: Casas catheter associated UTI Goal Trough: 15-20 SrCr: 1.41 CrCl: 44.5 Other abx: Meropenem Vancomycin Dose: 500 mg Q12H with first dose 01/09 @ 0100 Pending Level: 01/10/25 @ 0030 Date/Time Labs Ordered Labs to be done on [date and time ordered]: 01/10/25 @ 0030
--- NOTE | 2025-01-08 14:10 | NURSING ---
Left VM with Dr. Egan's office about consult, asked for return call to confirm they received and Dr. Egan will follow.
[2025-01-08] MEDS: Meropenem 1 GM in 0.9% Normal Saline (100mL MB+) 100 ML IV (14:32)
[2025-01-08] MEDS: 0.9% Normal Saline 250 ML IV.SOLN. IV (14:32)
[2025-01-08] MEDS: 0.9% Saline Lock 10 ML Syringe IV (14:36)
--- NOTE | 2025-01-08 14:55 | NURSING ---
EMA Wilder, verified that IV Vanc & merrem are compatible via Y site
[2025-01-08] MEDS: Vancomycin HCl 2,000 MG in 0.9% Normal Saline (500mL Bag) 500 ML 250 MG IV (15:04)
--- NOTE | 2025-01-08 15:05 | NURSING ---
spoke to Lorenzo, son via phone call regarding his fathers new orders & consult for I.D & Dr Egan. made son aware that discharged was cancelled for now.
--- NOTE | 2025-01-08 15:19 | CASEMGMT ---
Social Work Nursing notified this worker that pt had a change in condition and is now started on IV ATB, thus DC postponed. Nursing to notify son. SW updated [facility]. Charley Wilde OPERATOR RECEPTIONIST PACKER DRIED BEEF
[2025-01-08] MEDS: Warfarin (PBKC) 3 MG Tablet PO (17:17)
--- NOTE | 2025-01-08 17:33 | NURSING ---
dynamic access notified via online
--- NOTE | 2025-01-08 18:17 | NURSING ---
Kristin Caldwell Access returned call and will be here approx 8pm.
[2025-01-08 20:00] VITALS: PULSE 83; O2SAT 98
--- NOTE | 2025-01-08 21:20 | NURSING ---
Dynamic access here to place PICC.
--- NOTE | 2025-01-08 21:58 | RAD_ITS ---
PROCEDURE: RAD/Chest 1 View (Portable)
[2025-01-08] MEDS: MELATONIN 3 MG TABLET PO (22:20)
[2025-01-09] MEDS: 0.9% Saline Lock 10 ML Syringe IV ×2 (00:02→22:32)
[2025-01-09] MEDS: Meropenem 1 GM in 0.9% Normal Saline (100mL MB+) 100 ML IV ×2 (00:41→12:46)
[2025-01-09] MEDS: Vancomycin HCl 500 MG in 0.9% Normal Saline (100mL Bag) 100 ML 100 MG IV ×2 (00:44→12:46)
--- NOTE | 2025-01-09 08:26 | NURSING ---
Addendum entered by Rayne Carvajal 01/09/25 08:34: Secure text sent to update Dr. Kasper, note left updating Dr. Bledsoe. Original Note: Called to f/u on consult for Dr. Egan. Areli in office reports that physician says resident can just follow-up in office after DC from TCU.
[2025-01-09 09:21] VITALS: BP 101/48; PULSE 94; RESP 16; TEMP 36.3; O2SAT 98
[2025-01-09 09:23] VITALS: PULSE 94
[2025-01-09] MEDS: BACITRACIN 15 GM Tube 1 APPLIC TOPICAL ×2 (09:23→22:30)
[2025-01-09] MEDS: Metoprolol(XL)Succ 50 MG Tablet PO (09:23)
[2025-01-09 15:00] VITALS: BMI 29.0
[2025-01-09] MEDS: Warfarin (PBKC) 3 MG Tablet PO (16:59)
[2025-01-09 20:32] VITALS: PULSE 64; O2SAT 95
[2025-01-09] MEDS: MELATONIN 3 MG TABLET PO (22:31)
[2025-01-10] MEDS: 0.9% Normal Saline 250 ML IV.SOLN. IV (00:05)
[2025-01-10] MEDS: 0.9% Saline Lock 10 ML Syringe IV ×2 (00:12→00:22)
[2025-01-10] MEDS: Meropenem 1 GM in 0.9% Normal Saline (100mL MB+) 100 ML IV ×2 (00:14→13:04)
[2025-01-10] MEDS: Vancomycin Trough/Random Due 1 LAB MC ×2 (00:26→16:21)
[2025-01-10 01:06] LABS: Vancomycin, Trough Level 21.9 ug/mL (5.0-15.0)
--- NOTE | 2025-01-10 01:23 | PCM.RX.CS ---
Consult Antibiotic Management Pharmacy has been consulted to manage selected antibiotic: Vancomycin Type of Intervention Type of Consult: Follow-up Labs Labs: Sodium 141 mmol/L (133-145) 01/04/25 06:25 Potassium 4.0 mmol/L (3.3-5.1) 01/04/25 06:25 Chloride 109 mmol/L (98-108) H 01/04/25 06:25 Carbon Dioxide 24.2 mmol/L (21.0-32.0) 01/04/25 06:25 Anion Gap 8 (5-15) 01/04/25 06:25 BUN 49 mg/dL (4-19) H 01/04/25 06:25 Creatinine 1.41 mg/dL (0.70-1.20) H 01/04/25 06:25 Est GFR (MDRD) Non-Af 49 (>60) L 01/04/25 06:25 BUN/Creatinine Ratio 34.7 RATIO (10-20) H 01/04/25 06:25 Glucose 85 mg/dL (70-99) 01/04/25 06:25 Vancomycin Trough 21.9 ug/mL (5.0-15.0) H 01/10/25 00:30 Microbiology Microbiology: Microbiology 01/06/25 22:47 Interface Orders Gram Stain - Final 01/06/25 22:47 Interface Orders Body Fluid Culture - Preliminary Gram negative juli GNR lactose maternity floor supervisor 01/06/25 22:47 Interface Orders Anaerobic Culture - Final No anaerobic bacteria isolated. 01/04/25 08:30 Catheter Insertion Site Gram Stain - Final 01/04/25 08:30 Catheter Insertion Site Wound Culture - Final ESBL Klebsiella pneumoniae pne Morganella morganii sp morgani Meth. resistant Staph. aureus Proteus mirabilis 01/03/25 10:39 Urine Catheter - Catheter Urine Culture - Final Culture exhibits no growth. 01/01/25 05:45 Nasal Secretion SARS-CoV-2 Antigen (Rapid) - Final 12/25/24 05:30 Nasal Secretion SARS-CoV-2 Antigen (Rapid) - Final Dosing Weight Weight used for dosin kg Estimated Creatinine Clearance Estimated Creatinine Clearance: 45 Goal Trough Goal Trough: 15-20 mcg/mL Pharmacy Plan for Drug Dosing Pharmacy Plan for Drug Dosing: Vancomycin trough level of 21.9, drawn 11.75hrs post-dose, was above the target range of 15-20. Will suspend current dosing, and will draw a random vanco level in twelve hours to determine further orders. Pharmacy Service will continue to monitor and adjust dosing as required. Follow-Up Labs Follow-Up Labs: Trough: Vancomycin (random) Date/Time Labs Ordered Labs to be done on [date and time ordered]: 01/10/25 @1230 (random)
[2025-01-10 08:38] VITALS: BP 91/47; PULSE 89; RESP 17; TEMP 36.1; O2SAT 94
[2025-01-10] MEDS: BACITRACIN 15 GM Tube 1 APPLIC TOPICAL ×2 (08:40→21:29)
[2025-01-10] MEDS: Senna/Docusate Sodium 1 Tablet PO ×2 (08:41→21:29)
--- NOTE | 2025-01-10 11:41 | WOUNDNOTE ---
wound photo: left lateral foot
--- NOTE | 2025-01-10 11:42 | WOUNDNOTE ---
wound photo: right heel
--- NOTE | 2025-01-10 11:51 | WOUNDNOTE ---
wound photo: penis (meatus- erosion from Casas cath)
--- NOTE | 2025-01-10 13:12 | PCM.PN.ID ---
Physical Exam Narrative Feeling ok, denies pain at catheter, no fever, no n/v/d. Const alert and no apparent distress General Appearance: cooperative Resp normal air movement and clear to auscultation bilaterally Cardio regular rate and regular rhythm GI soft to palpation, non-tender and non-distended Skin no rashes or lesions noted ID ID: Route of nutrition/ use of supplements: [] Nutritional Intake: [] IV Site: [] Schumacher Catheter: [] Assessment & Plan Assessment/Plan (1) Chronic indwelling Schumacher catheter: PLAN: Erosion and some purulence at schumacher catheter insertion. Wound cx with ESBL k pneumo, MRSA, morganella, and proteus. On vanc/luis. D/w nursing. Plan will be for 5 days total of abx, to finish 01/12, then discharge home with urology followup. Will follow as needed, thank you
[2025-01-10 13:27] LABS: Vancomycin, Random Level 20.0 ug/mL (0.0-15.0)
--- NOTE | 2025-01-10 13:28 | CASEMGMT ---
Addendum entered by Charley Wilde 01/10/25 13:33: Correction: IV ATB through 01/12. Original Note: Social Work Nursing notified this worker that ID DR ordered pt's IV ATB Through 01/11 and cleared to DC from ID standpoint. SW left VM with son to update and inquire about new DC date. Dr. Egan to see pt as an outpatient. Charley Wilde FOREST ENGINEER METAL FINISH INSPECTOR
[2025-01-10 15:54] LABS: Anion Gap 9 (5-15); BUN 42 mg/dL (4-19); BUN/Creat Ratio 28.7 RATIO (10-20); Calcium,Total 8.2 mg/dL (7.6-11.0); Carbon Dioxide 25.5 mmol/L (21.0-32.0); Chloride 105 mmol/L (98-108); Estimated Creatinine Clearance 42.68 ml/min (50-250); Glucose 111 mg/dL (70-99); Potassium 4.2 mmol/L (3.3-5.1)
[2025-01-10] MEDS: Vancomycin HCl 500 MG in 0.9% Normal Saline (100mL Bag) 100 ML 100 MG IV (16:21)
[2025-01-10] MEDS: Warfarin (PBKC) 3 MG Tablet PO (16:22)
--- NOTE | 2025-01-10 16:22 | PCM.RX.CS ---
Consult Antibiotic Management Pharmacy has been consulted to manage selected antibiotic: Vancomycin Type of Intervention Type of Consult: Follow-up Labs Labs: Sodium 139 mmol/L (133-145) 01/10/25 14:37 Potassium 4.2 mmol/L (3.3-5.1) 01/10/25 14:37 Chloride 105 mmol/L (98-108) 01/10/25 14:37 Carbon Dioxide 25.5 mmol/L (21.0-32.0) 01/10/25 14:37 Anion Gap 9 (5-15) 01/10/25 14:37 BUN 42 mg/dL (4-19) H 01/10/25 14:37 Creatinine 1.47 mg/dL (0.70-1.20) H 01/10/25 14:37 Est GFR (MDRD) Non-Af 47 (>60) L 01/10/25 14:37 BUN/Creatinine Ratio 28.7 RATIO (10-20) H 01/10/25 14:37 Glucose 111 mg/dL (70-99) H 01/10/25 14:37 Vancomycin Trough 21.9 ug/mL (5.0-15.0) H 01/10/25 00:30 Random Vancomycin 20.0 ug/mL (0.0-15.0) H 01/10/25 12:29 Microbiology Microbiology: Microbiology 01/06/25 22:47 Interface Orders Gram Stain - Final 01/06/25 22:47 Interface Orders Body Fluid Culture - Preliminary Morganella morganii sp morgani Klebsiella pneumoniae sp pneum Mixed Gram Pos & Gram Neg Org 01/06/25 22:47 Interface Orders Anaerobic Culture - Final No anaerobic bacteria isolated. 01/04/25 08:30 Catheter Insertion Site Gram Stain - Final 01/04/25 08:30 Catheter Insertion Site Wound Culture - Final ESBL Klebsiella pneumoniae pne Morganella morganii sp morgani Meth. resistant Staph. aureus Proteus mirabilis 01/03/25 10:39 Urine Catheter - Catheter Urine Culture - Final Culture exhibits no growth. 01/01/25 05:45 Nasal Secretion SARS-CoV-2 Antigen (Rapid) - Final 12/25/24 05:30 Nasal Secretion SARS-CoV-2 Antigen (Rapid) - Final Pharmacy Plan for Drug Dosing Pharmacy Plan for Drug Dosing: VANCOMYCIN LEVEL RECEIVED Current Vancomycin Dose: 500MG Q12 Number of Doses Received: 3 Vancomycin Level: 20 mg/dL Hours Since Last Dose: 24 Renal Function: SCR 1.47 mg/dL, CrCl 42 mL/min Renal Function Trend: stable Vancomycin Plan/Comments: 24 hour random level is now therapeutic. Will restart dosing at 500mg Q24, starting @1600 to allow level to come down a little further. Pending Level: no need to order level, would be before 3rd dose of new regimen (01/12/25 @ 1530) but resident will be leaving on 01/12. Pharmacy Service will continue to monitor and adjust dosing as required.
[2025-01-10] MEDS: MELATONIN 3 MG TABLET PO (21:29)
[2025-01-10 21:30] VITALS: PULSE 80
[2025-01-11] MEDS: Meropenem 1 GM in 0.9% Normal Saline (100mL MB+) 100 ML IV ×2 (01:39→12:13)
[2025-01-11 07:01] VITALS: O2SAT 94
[2025-01-11 07:51] LABS: Hematocrit 28.7 % (40-54); Hemoglobin 9.1 g/dL (13.0-16.5); Immature Granulocytes Count 0.020 X10^3/uL (0.0-0.0); Mean Corp Hgb Conc 31.7 g/dL (32-36); Mean Corpuscular Volume 89.7 fL (80-94); Mean Platelet Vol. 9.2 fl (6.2-12.0); NRBC Flagged by Analyzer 0 % (0-5); Platelet Count 193 K/mm3 (150-450); RBC Distribution Width CV 15.5 % (11.6-14.6); RBC Distribution Width SD 50.9 fl (35.1-43.9); Red Blood Count 3.20 M/mm3 (4.6-6.2); White Blood Count 7.8 K/mm3 (4.4-11.0)
[2025-01-11 08:02] VITALS: BP 114/60; PULSE 94; RESP 18; TEMP 36.3; O2SAT 93
[2025-01-11 08:04] LABS: Prothrombin Time (Protime)PT. 20.0 SECONDS (11.7-14.9)
[2025-01-11 08:05] VITALS: PULSE 94
[2025-01-11] MEDS: Metoprolol(XL)Succ 50 MG Tablet PO (08:05)
[2025-01-11] MEDS: BACITRACIN 15 GM Tube 1 APPLIC TOPICAL ×2 (08:06→19:40)
[2025-01-11] MEDS: Senna/Docusate Sodium 1 Tablet PO ×2 (08:07→19:39)
[2025-01-11 08:32] LABS: Anion Gap 8 (5-15); BUN 44 mg/dL (4-19); BUN/Creat Ratio 29.3 RATIO (10-20); Calcium,Total 8.1 mg/dL (7.6-11.0); Carbon Dioxide 22.9 mmol/L (21.0-32.0); Chloride 108 mmol/L (98-108); Estimated Creatinine Clearance 42.11 ml/min (50-250); Glucose 102 mg/dL (70-99); Potassium 4.4 mmol/L (3.3-5.1)
[2025-01-11 09:46] VITALS: PULSE 90
--- NOTE | 2025-01-11 10:57 | CASEMGMT ---
Social Work SW phoned son again to follow up on DC plans. Left requesting return call. Charley Wilde ABATTOIR MANAGER SECURITY REPRESENTATIVE
[2025-01-11] MEDS: 0.9% Saline Lock 10 ML Syringe IV ×2 (12:12→16:03)
[2025-01-11 12:37] VITALS: O2SAT 94
--- NOTE | 2025-01-11 13:17 | MDS.RN ---
Pain assessment for MDS complete.
--- NOTE | 2025-01-11 14:16 | CASEMGMT ---
Social Work SW received return call from son. SW educated that IV ATB are completed 01/12 and cleared to DC; pt will follow up with Dr. Egan at [place]. SW offered to set DC date. Son prefers 01/13 as he is off work. SW agreed and will notify [facility] of new DC date for SOC. Confirmed no DME needs and son to transport. Son appreciative. - IDT updated. [facility] updated. Plan: DC home with and son 01/13, [facility] PT/OT/SN/VON/NILSA Wilde TYPE DISK QUALITY CONTROL SUPERVISOR ELECTRICAL DISCHARGE MACHINE OPERATOR
--- NOTE | 2025-01-11 14:42 | WOUNDNOTE ---
wound photo: right lower gluteal crease
--- NOTE | 2025-01-11 14:43 | WOUNDNOTE ---
wound photo: bravo cleft/buttocks
[2025-01-11] MEDS: Vancomycin HCl 500 MG in 0.9% Normal Saline (100mL Bag) 100 ML 100 MG IV (16:03)
[2025-01-11] MEDS: Warfarin (PBKC) 3 MG Tablet PO (16:09)
--- NOTE | 2025-01-11 18:03 | PCM.DC.SUM ---
Providers Date of Admission: 12/20/24 Primary Care Physician: Dr. 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 Routine Comment: Reason for Consult:: pressure/diabetic ulcers BLE, buttocks 12/24/24 23:56 Consult: Onc/Wound/agricultural produce packer Routine Comment: Reason for Consult:: OPEN AREA TO RIGHT ISCHIAL AREA 01/07/25 15:40 Consult: Infectious Disease Routine Consulting Provider: Luis Kasper Reason for Consult: penile infection EMERGENT Consult: No MD Notified: Yes Date Notified: 01/07/25 Time Notified: 15:41 Method of Notification: Verbal 01/08/25 13:01 Consult: Urology Routine Consulting Provider: Vivek Egan Reason for Consult: erosion/infection at schumacher insertion site EMERGENT Consult: No Notified: Yes Date Notified: 01/08/25 Time Notified: 14:10 Method of Notification: Answering Service Reason For Visit: SEPSIS UTI, N/V/D Diagnosis Discharge Diagnosis (1) Chronic indwelling Schumacher catheter: Status: Chronic Code(s): Z97.8 - Presence of other specified devices Plan 84 year old male with below past medical history significant for chronic indwelling schumacher catheter, hospitalized for sepsis 2/2 complicated UTI, esbl K. pneumoniae bacteremia, encephalopathy, hypokalemia, hypophosphatemia, admitted to TCU with debility, here for rehabilitation, strengthening, prior to dischareg home with /family. Debility - PT/OT. Pain - Tylenol 1000mg q6 prn pain (1-10). Bowel - senna/colace 1 tablet bid, Magnesium citrate 300mL daily prn. Adult immunization - Administer pneumonia vaccine, covid vaccine, flu vaccine as appropriate. DVT prophylaxis - Warfarin. Complicated UTI/esbl K. Pneumoniae bacteremia - Meropenem 1gm iv q12 thru 12/28/2024. Shortness of breath - Albuterol 2.5mg neb q2h prn. Hyperlipidemia - Atorvastatin 40mg qhs. BPH - Finasteride 5mg daily, Tamsulosin 0.4mg daily, indwelling schumacher catheter. Diabetes Mellitus II - Glipizide 5mg daily. Nutrition - Michael 1 packet bidcm. Hypertension - Losartan 50mg daily. Skin irritation - Calmoseptine topical 4x/day. Atrial fibrillation - Metoprolol succinate 50mg daily, warfarin 2mg reed, monitor INR. Medications at Discharge Home Medications finasteride 5 mg tablet 5 mg PO DAILY BPH 12/16/24 glipizide 5 mg tablet 5 mg PO DAILY T2DM 12/16/24 levothyroxine 25 mcg tablet (Euthyrox) 25 mcg PO DAILY thyroid 12/16/24 simvastatin 40 mg tablet 40 mg PO DAILY HLD 12/16/24 tamsulosin 0.4 mg capsule (Flomax) 0.4 mg PO DAILY BPH 12/16/24 metoprolol succinate 50 mg tablet,extended release 24 hr 50 mg PO DAILY BLOOD PRESSURE 12/18/24 warfarin 1 mg tablet (Jantoven) 2 mg (2 x 1 mg) PO .unknown anticoagulant 30 days #1 TAB 12/20/24 Hospital Course Operations None Procedures None Summary of Care Provided Minutes Spent on Discharge: 35 Hospital Course: 84 year old male with below past medical history significant for chronic indwelling schumacher catheter, hospitalized for sepsis 2/2 complicated UTI, esbl K. pneumoniae bacteremia, encephalopathy, hypokalemia, hypophosphatemia, admitted to TCU with debility, here for rehabilitation, strengthening, prior to dischareg home with /family. 01/08/2025 Dr. Kasper consulted: Erosion and some purulence at schumacher catheter insertion. Wound cx with ESBL k pneumo, MRSA, morganella, and proteus. On vanc/luis. D/w nursing. Plan will be for 5 days total of abx, to finish 01/12, then discharge home with urology followup. Discharge home with son/ 01/13/2025, [facility] PT/OT/SN/[place]/SW. Physical Exam Const alert General Appearance: cooperative HEENT normocephalic Eyes PERRL and EOMs intact bilaterally Neck supple, no JVD and no carotid bruits Resp normal respiratory effort, normal air movement and clear to auscultation bilaterally Cardio regular rate and regular rhythm GI normal to inspection, nondistended, normoactive bowel sounds, non-tender and non-distended Bladder / Kidney Exam: catheter in place urethral Extremity normal capillary refill General Extremity: Negative for edema Skin no rashes or lesions noted General Skin Exam: no breakdown Psych affect normal Appearance: appropriate Weight / BMI Weight Weight: 92.17 kg Body Mass Index (BMI) 29.0 ABG / Lab / Microbiology Data 01/11/25 07:20 01/11/25 07:20 Laboratory: Laboratory Results - last 24 hr 01/11/25 05:54: POC Glucose 97 01/11/25 07:20: WBC 7.8, RBC 3.20 L, Hgb 9.1 L, Hct 28.7 L, MCV 89.7, MCH 28.4, MCHC 31.7 L, RDW Std Deviation 50.9 H, RDW Coeff of Rolando 15.5 H, Plt Count 193, MPV 9.2, Immature Gran % (Auto) 0.300, Neut % (Auto) 58.4, Lymph % (Auto) 23.8, [place] % (Auto) 9.2, Eos % (Auto) 7.8 H, Baso % (Auto) 0.5, Absolute Neuts (auto) 4.6, Absolute Lymphs (auto) 1.86, Nucleated RBC % 0, PT 20.0 H, INR 1.7, Sodium 139, Potassium 4.4, Chloride 108, Carbon Dioxide 22.9, Anion Gap 8, BUN 44 H, Creatinine 1.49 H, Estim Creat Clear Calc 42.11 L, Est GFR (MDRD) Non-Af 46 L, BUN/Creatinine Ratio 29.3 H, Glucose 102 H, Calcium 8.1 Microbiology: Microbiology 01/06/25 22:47 Interface Orders Gram Stain - Final 01/06/25 22:47 Interface Orders Body Fluid Culture - Final Morganella morganii sp morgani ESBL Klebsiella pneumoniae pne Proteus mirabilis Staphylococcus haemolyticus Vancomycin Resist. E. faecalis Staphylococcus capitis 01/06/25 22:47 Interface Orders Anaerobic Culture - Final No anaerobic bacteria isolated. 01/04/25 08:30 Catheter Insertion Site Gram Stain - Final 01/04/25 08:30 Catheter Insertion Site Wound Culture - Final ESBL Klebsiella pneumoniae pne Morganella morganii sp morgani Meth. resistant Staph. aureus Proteus mirabilis 01/03/25 10:39 Urine Catheter - Catheter Urine Culture - Final Culture exhibits no growth. 01/01/25 05:45 Nasal Secretion SARS-CoV-2 Antigen (Rapid) - Final 12/25/24 05:30 Nasal Secretion SARS-CoV-2 Antigen (Rapid) - Final D/C Instructions Discharge Activity: Return to Normal Activity, May Shower and Use Walker Weight Bearing Status: Weight bearing as tolerated Call your doctor if you observe: Fever of 101 or Higher, Inability to urinate, Inability to have a bowel movement, Shortness of breath, Dizziness, Fainting spells, Swelling in the ankles, Chest pain and Uncontrolled pain DC O2, CPAP, BIPAP Needs Home O2 Discharge instructions: No Additional Instructions: Discharge home with son/ 01/13/2025, [facility] PT/OT/SN/[place]/SW. Please Follow Up With: Vivek Egan MD When: 2 weeks. Meaningful Use Info Meaningful Use Meaningful Use Diagnoses (Choose all that apply): None applicable Discharge Plan Admission Admit Date/Time: 12/20/24 19:50 Primary Reason for Your Visit: Debility. Attending Provider: Ashvin Bledsoe Chi Primary Care Provider: James Gardner Consulting Providers: Luis Kasper; Vivek Egan Instructions Additional Instructions / Restrictions: Discharge home with son/ 01/13/2025, [facility] PT/OT/SN/[place]/SW. Discharge Orders/Prescriptions Prescriptions: Continued levothyroxine [Euthyrox] 25 mcg tablet 25 mcg PO DAILY glipizide 5 mg tablet 5 mg PO DAILY finasteride 5 mg tablet 5 mg PO DAILY tamsulosin [Flomax] 0.4 mg capsule 0.4 mg PO DAILY simvastatin 40 mg tablet 40 mg PO DAILY metoprolol succinate 50 mg tablet extended release 24 hr 50 mg PO DAILY warfarin [Jantoven] 1 mg tablet 2 mg PO .unknown 30 Days Qty: 1 0RF Patient Comments: unknown when pt takes med Discontinued losartan [Cozaar] 50 mg tablet 50 mg PO DAILY ertapenem 1 gram recon soln 0.5 g IM DAILY 8 Days Qty: 8 0RF Rx Instructions: Dx: GNR bacteremia. Reconstitute with lidocaine. Weekly bmp, cbc, and LFT while on this. Fax to [phone]. Michael (with collagen) 7-7-1.5 gram Powder In Packet 1 packet PO BIDCM Qty: 0 0RF heparin (porcine) 5,000 unit/mL Solution 5,000 unit subcut Q12 Qty: 0 0RF menthol-zinc oxide [Calmoseptine] 0.44-20.6 % Ointment 1 applic topical 4X/DAY Qty: 0 0RF Protocol: *Topical Application Instructions APPLICATION INSTRUCTIONS: apply to affected region acetaminophen 325 mg Tablet 650 mg PO Q4H PRN PRN (Reason: Fever, pain 1-12/22) Qty: 0 0RF albuterol sulfate 2.5 mg /3 mL (0.083 %) Solution For Nebulization 2.5 mg inhalation Q2H PRN PRN (Reason: Dyspnea, wheezing) Qty: 0 0RF Referrals / Follow Up: James Gardner MD [Primary Care Provider, Internal Medicine] Vivek Egan MD [Med Staff - Active Staff, Urology] Referral Note: Follow-up after DC from TCU Disposition Disposition (needs filled in before D/C Order can be placed): Home Health Service
[2025-01-11] MEDS: MELATONIN 3 MG TABLET PO (19:37)
[2025-01-12] MEDS: 0.9% Saline Lock 10 ML Syringe IV ×3 (00:04→18:39)
[2025-01-12] MEDS: Meropenem 1 GM in 0.9% Normal Saline (100mL MB+) 100 ML IV ×2 (00:05→13:11)
[2025-01-12] MEDS: BACITRACIN 15 GM Tube 1 APPLIC TOPICAL ×2 (08:26→21:23)
[2025-01-12 08:28] VITALS: BP 110/62; PULSE 92
[2025-01-12] MEDS: Metoprolol(XL)Succ 50 MG Tablet PO (08:28)
[2025-01-12] MEDS: Senna/Docusate Sodium 1 Tablet PO ×2 (08:31→21:21)
[2025-01-12 08:35] VITALS: BP 110/62; PULSE 92; RESP 18; TEMP 524.4; TEMP 976; O2SAT 98
--- NOTE | 2025-01-12 11:12 | CASEMGMT ---
Social Work SW completed BIMS () and PHQ-2 () for MDS assessment. - SW reviewed daytime O2 testing and pt does not qualify. Charley Wilde SALES REPRESENTATIVE EDUCATION COURSES CARRY IN WORKER
--- NOTE | 2025-01-12 11:31 | CASEMGMT ---
Social Work NILSA received call from Ese FINLEY at [facility] stating pt has been active with them since 11/23/24. SW stated this worker was unaware of pt being active with [facility] agency, and SW provided list of [facility] agencies to son and son selected [facility] and requested [facility] to DC from services so [facility] can open. DON refuting, absolutely not, I am not willing to lose this pt that we've been caring for since 11/23. NILSA explained it is the pt's choice which agency they choose, the son did not state he was active with [facility] either. MALIA explained she had provided faxed information to hospital prior to admission to TCU. SW apologized they were not received. Reiterated pt chooses the [facility] agency. MALIA stated she will contact the son to remind him [facility] was the [facility] agency providing services. NILSA wanted to ensure the decision remained the son's if he wanted to continue pursuing [facility] as it is the patient's right. MALIA replied, I have been a DON for many years and I know that it is the patient's right. NILSA stated want to ensure DON follows the regulations. MALIA stated, Oh yes, we follow the rules here at [facility]. NILSA will await son's call and adjust the referral if needed. MALIA thanked this worker. Charley Wilde MSW EVENT STAFF MEMBER
[2025-01-12] MEDS: 0.9% Normal Saline 250 ML IV.SOLN. IV (16:24)
[2025-01-12] MEDS: Warfarin (PBKC) 3 MG Tablet PO (16:26)
[2025-01-12] MEDS: Vancomycin HCl 500 MG in 0.9% Normal Saline (100mL Bag) 100 ML 100 MG IV (16:53)
[2025-01-12] MEDS: MELATONIN 3 MG TABLET PO (21:21)
[2025-01-12 21:58] VITALS: PULSE 77; O2SAT 99
[2025-01-12 22:00] VITALS: PULSE 76; RESP 16; O2SAT 94
[2025-01-13] MEDS: Meropenem 1 GM in 0.9% Normal Saline (100mL MB+) 100 ML IV (01:03)
[2025-01-13] MEDS: 0.9% Saline Lock 10 ML Syringe IV (01:03)
[2025-01-13 07:01] VITALS: PULSE 97; RESP 16; O2SAT 91
[2025-01-13] MEDS: BACITRACIN 15 GM Tube 1 APPLIC TOPICAL (08:35)
[2025-01-13 08:36] VITALS: BP 96/51; PULSE 85
[2025-01-13 09:54] VITALS: BP 96/51; PULSE 85; RESP 16; TEMP 36.5; O2SAT 92
--- NOTE | 2025-01-13 10:14 | CASEMGMT ---
Social Work- SW received notice that pt overnight oxygen showed a need for O2 at . SW provided results and hospitalist covering signed results/script for oxygen orders, as pt is d/c home today. NILSA faxed script to [facility] and followed up with phone call. Karri at [facility] reports that oxygen will be delivered 12:30PM or later today. Bedside nurse updated. Original script and results sent to bedside nurse. ENRIQUE Posey
== END 2025-01-13 11:35 | disposition home health service (06) | DRG 949 ==
PROVIDERS: Internal Medicine Infectious Disease; Admitting Provider Family Medicine Geriatric Medicine; PCP Internal Medicine; Visit Provider Family Medicine Geriatric Medicine
DX: T83.511D Infection and inflammatory reaction due to indwelling urethral catheter, subsequent encounter (principal); N13.8 Other obstructive and reflux uropathy; R78.81 Bacteremia; N18.4 Chronic kidney disease, stage 4 (severe); N39.0 Urinary tract infection, site not specified; Z16.12 Extended spectrum beta lactamase (ESBL) resistance; L89.152 Pressure ulcer of sacral region, stage 2; E83.39 Other disorders of phosphorus metabolism; B96.1 Klebsiella pneumoniae [K. pneumoniae] as the cause of diseases classified elsewhere; L89.610 Pressure ulcer of right heel, unstageable; E11.22 Type 2 diabetes mellitus with diabetic chronic kidney disease; I12.9 Hypertensive chronic kidney disease with stage 1 through stage 4 chronic kidney disease, or unspecified chronic kidney disease; E03.9 Hypothyroidism, unspecified; I48.0 Paroxysmal atrial fibrillation; E11.621 Type 2 diabetes mellitus with foot ulcer; E78.5 Hyperlipidemia, unspecified; E87.6 Hypokalemia; E11.65 Type 2 diabetes mellitus with hyperglycemia; I25.10 Atherosclerotic heart disease of native coronary artery without angina pectoris; L97.529 Non-pressure chronic ulcer of other part of left foot with unspecified severity; L24.A9 Irritant contact dermatitis due friction or contact with other specified body fluids; Z87.891 Personal history of nicotine dependence; N40.1 Benign prostatic hyperplasia with lower urinary tract symptoms; Y73.8 Miscellaneous gastroenterology and urology devices associated with adverse incidents, not elsewhere classified; Z79.899 Other long term (current) drug therapy; Z79.890 Hormone replacement therapy; Z79.84 Long term (current) use of oral hypoglycemic drugs; B96.4 Proteus (mirabilis) (morganii) as the cause of diseases classified elsewhere; Z79.01 Long term (current) use of anticoagulants; B95.62 Methicillin resistant Staphylococcus aureus infection as the cause of diseases classified elsewhere
CPT/HCPCS: 36415; 36569; 71045; 80048; 80061; 80202; 81001; 82962; 85014; 85018; 85025; 85610; 87070; 87075; 87077; 87086; 87186; 87205; 87811; 92507; 92523; 94762; 97110; 97116; 97150; 97162; 97166; 97530; 97535; J2185; A4216

== ENCOUNTER → 2024-12-26 | Outpatient (CLI) | payer MEDICARE, BC, SELFPAY ==
--- NOTE | 2024-12-26 08:55 | VDUE_ITS ---
Reason For Study Reason For Study: LUE Swelling Left Proximal Left jugular vein is spontaneous, widely patent, phasic, with no intraluminal echogenicity noted. Left subclavian vein is spontaneous, widely patent, phasic, with no intraluminal echogenicity noted. Left Arm Left axillary vein is spontaneous, patent, phasic, competent, compressible and demonstrates augmentation. Left brachial vein is compressible. PICC Line Visualized Lt Brachial Vein. Left cephalic vein is compressible. Left basilic vein is compressible. Left Lower Arm Left radial vein is compressible. Left ulnar vein is compressible. Procedure This was a unilateral left upper extremity venous doppler examination. Exam performed in department. A preliminary report was called and/or faxed to TCU dental laboratory supervisor. VL/Venous Duplex US, Unilateral Interpretation Summary Deep veins of the left upper extremity are patent and compressible segmentally. There is no evidence of deep vein thrombosis. The superficial veins of the left upper extremity, the basilic and cephalic veins, are patent and compressible. There is no evidence of left upper extremity superficial thrombop hlebitis involving the veins imaged. A PICC line is visualized in the left brachial vein. Ordering Physician: Ashvin Bledsoe Chi Referring Physician: Ashvin Bledsoe Chi Performed By: Jaiden Al RVT ???
== END | disposition home or self-care (01) ==
LOC: CVS 08:54
PROVIDERS: PCP Internal Medicine; Referring Provider Family Medicine Geriatric Medicine; Visit Provider Family Medicine Geriatric Medicine
DX: R22.32 Localized swelling, mass and lump, left upper limb (principal)
CPT/HCPCS: 93971